=== PATIENT | female | born 1970 | race Caucasian/White ===

== ENCOUNTER 2016-10-14 06:43 | Emergency (ER) | payer BC, OTHER ==
[2016-10-14 06:49] VITALS: BP 124/75; PULSE 110; RESP 18; TEMP 97.7
--- NOTE | 2016-10-14 07:50 | ED ---
General Adult HPI - General Chief complaint: Extremity Problem,Nontraumatic Stated complaint: right shoulder pain Time Seen by Provider: 10/14/16 07:17 Source: patient, RN notes reviewed, old records reviewed Mode of arrival: ambulatory Limitations: no limitations - History of Present Illness Initial comments: This is a 46-year-old male here for evaluation of shoulder pain. Patient has severe right shoulder pain [id number] injury from work. Patient states symptoms or is getting [place] work. She does see orthopedics was unable to get in office today. Patient has no medical complications at home for pain. Patient states at this time. She states maybe few days and get her feeling better and she can - Related Data Home Medications Medication Instructions Recorded Confirmed Ibuprofen [Motrin] 800 mg PO TID PRN 10/14/16 10/14/16 Previous Rx's Medication Instructions Recorded HYDROcodone/APAP 5-325MG [[place] 1 tab PO Q6HR PRN #20 tab 10/14/16 5-325] Allergies Allergy/AdvReac Type Severity Reaction Status Date / Time No Known Allergies Allergy Verified 10/14/16 07:54 Review of Systems ROS Statement: Those systems with pertinent positive or pertinent negative responses have been documented in the HPI. ROS Other: All systems not noted in ROS Statement are negative. Past Medical History Past Medical History: No Reported History History of Any Multi-Drug Resistant Organisms: None Reported Past Surgical History: Tubal Ligation Additional Past Surgical History / Comment(s): cyst removed off wrist Past Psychological History: Depression Smoking Status: Current every day smoker Past Alcohol Use History: None Reported Past Drug Use History: None Reported General Exam Limitations: no limitations General appearance: alert, in no apparent distress Head exam: Present: atraumatic, normocephalic, normal inspection Eye exam: Present: normal appearance, PERRL, EOMI. Absent: scleral icterus, conjunctival injection, periorbital swelling ENT exam: Present: normal exam, mucous membranes moist Neck exam: Present: normal inspection. Absent: tenderness, meningismus, lymphadenopathy Respiratory exam: Present: normal lung sounds bilaterally. Absent: respiratory distress, wheezes, rales, rhonchi, stridor Cardiovascular Exam: Present: regular rate, normal rhythm, normal heart sounds. Absent: systolic murmur, diastolic murmur, rubs, gallop, clicks GI/Abdominal exam: Present: soft, normal bowel sounds. Absent: distended, tenderness, guarding, rebound, rigid Extremities exam: Present: normal inspection, full ROM, normal capillary refill. Absent: tenderness, pedal edema, joint swelling, calf tenderness Back exam: Present: normal inspection Neurological exam: Present: alert, oriented X3, CN II-XII intact Psychiatric exam: Present: normal affect, normal mood Skin exam: Present: warm, dry, intact, normal color. Absent: rash Course Vital Signs 10/14/16 06:46 Temperature 97.7 F Pulse Rate 110 H Respiratory 18 Rate Blood Pressure 124/75 O2 Sat by Pulse 100 Oximetry Medical Decision Making - Medical Decision Making 46 female for female here for evaluation of right shoulder pain. She pain is nonspecific. No injury, patient given pain control and follow-up with orthopedics as directed Disposition Clinical Impression: Right shoulder pain Disposition: HOME SELF-CARE Condition: Good Instructions: Shoulder Pain (ED) Prescriptions: HYDROcodone/APAP 5-325MG [[place] 5-325] 1 tab PO Q6HR PRN #20 tab PRN Reason: Pain Referrals: Nba Gonzales MD [Primary Care Provider] - 1-2 days
== END 2016-10-14 08:01 | disposition home or self-care (01) ==
LOC: EC 06:43
DX: M25.511 Pain in right shoulder (principal); F17.200 Nicotine dependence, unspecified, uncomplicated; Y93.89 Activity, other specified; Y92.69 Other specified industrial and construction area as the place of occurrence of the external cause
CPT/HCPCS: 99283

== ENCOUNTER 2016-11-27 09:26 | Emergency (ER) | payer BC, OTHER ==
[2016-11-27] MEDS ORDERED: SODIUM CHLORIDE 0.9% 500 ML IV STA (09:34)
--- NOTE | 2016-11-27 09:58 | XR ---
EXAMINATION TYPE: XR KUB DATE OF EXAM: 11/27/2016 9:55 AM COMPARISON: NONE HISTORY: Pain TECHNIQUE: Single supine KUB image of the abdomen is obtained FINDINGS: Small bowel demonstrates no evidence for dilatation or air fluid levels. Gas and fecal material is seen in non-distended colon. No convincing evidence for pneumoperitoneum. No unusual calcifications. The lung bases are clear. The osseous structures are intact. IMPRESSION: 1. Overall nonobstructive bowel gas pattern.
--- NOTE | 2016-11-27 10:00 | ED ---
Abdominal Pain HPI - General Chief Complaint: Abdominal Pain Stated Complaint: abd pain Source: patient, RN notes reviewed Mode of arrival: ambulatory Limitations: no limitations - History of Present Illness Initial Comments: 46-year-old female presents emergency Department chief complaint left lower quadrant abdominal pain. Patient states it has been intermittent over the last one to days. Patient states she occasionally gets sharp pain. Patient states she's had no variances in the past and feels somewhat. Patient denies any nausea, vomiting or diarrhea constipation. Denies any dysuria hematuria. Denies any vaginal bleeding or vaginal discharge. Patient had a prior tubal ligation. Patient states that she has no flank pain no back pain. - Related Data Home Medications Medication Instructions Recorded Confirmed Ibuprofen [Motrin] 800 mg PO TID PRN 10/14/16 11/27/16 Previous Rx's Medication Instructions Recorded traMADol HCl [Ultram] 50 mg PO Q6H PRN #20 tab 11/27/16 Allergies Allergy/AdvReac Type Severity Reaction Status Date / Time No Known Allergies Allergy Verified 11/27/16 10:09 Review of Systems ROS Statement: Those systems with pertinent positive or pertinent negative responses have been documented in the HPI. ROS Other: All systems not noted in ROS Statement are negative. Past Medical History Past Medical History: No Reported History History of Any Multi-Drug Resistant Organisms: None Reported Past Surgical History: Tubal Ligation Additional Past Surgical History / Comment(s): cyst removed off wrist Past Psychological History: Depression Smoking Status: Current every day smoker Past Alcohol Use History: None Reported Past Drug Use History: None Reported General Exam Limitations: no limitations General appearance: alert, in no apparent distress Head exam: Present: atraumatic, normocephalic, normal inspection Respiratory exam: Present: normal lung sounds bilaterally. Absent: respiratory distress, wheezes, rales, rhonchi, stridor Cardiovascular Exam: Present: regular rate, normal rhythm, normal heart sounds. Absent: systolic murmur, diastolic murmur, rubs, gallop, clicks GI/Abdominal exam: Present: soft, tenderness (Mild left lower quadrant tenderness), normal bowel sounds. Absent: distended, guarding, rebound, rigid Back exam: Absent: CVA tenderness (R), CVA tenderness (L) Skin exam: Present: warm, dry, intact, normal color. Absent: rash Course Vital Signs 11/27/16 09:27 Temperature 96.7 F L Pulse Rate 98 Respiratory 20 Rate Blood Pressure 118/71 O2 Sat by Pulse 98 Oximetry Medical Decision Making - Medical Decision Making 46-year-old female presented emergency from for abdominal pain, pelvic region. Patient has a right ovarian cyst. Patient's urinalysis was contaminated. Patient of urine culture return parameters were discussed. - Lab Data Result diagrams: 11/27/16 09:48 11/27/16 09:48 Lab Results 11/27/16 11/27/16 11/27/16 Range/Units 09:48 09:48 09:48 WBC 8.4 (3.8-10.6) k/uL RBC 4.11 (3.80-5.40) m/uL Hgb 12.6 (11.4-16.0) gm/dL Hct 38.8 (34.0-46.0) % MCV 94.4 (80.0-100.0) fL MCH 30.8 (25.0-35.0) pg MCHC 32.6 (31.0-37.0) g/dL RDW 12.7 (11.5-15.5) % Plt Count 368 (150-450) k/uL Neutrophils % 51 % Lymphocytes % 41 % Monocytes % 5 % Eosinophils % 1 % Basophils % 0 % Neutrophils # 4.3 (1.3-7.7) k/uL Lymphocytes # 3.5 (1.0-4.8) k/uL Monocytes # 0.4 (0-1.0) k/uL Eosinophils # 0.1 (0-0.7) k/uL Basophils # 0.0 (0-0.2) k/uL Sodium 140 (137-145) mmol/L Potassium 4.1 (3.5-5.1) mmol/L Chloride 107 (98-107) mmol/L Carbon Dioxide 24 (22-30) mmol/L Anion Gap 9 mmol/L BUN 17 (7-17) mg/dL Creatinine 0.81 (0.52-1.04) mg/dL Est GFR (MDRD) Af Amer >60 (>60 ml/min/1.73 sqM) Est GFR (MDRD) Non-Af >60 (>60 ml/min/1.73 sqM) Glucose 125 H (74-99) mg/dL Calcium 9.1 (8.4-10.2) mg/dL Total Bilirubin 0.7 (0.2-1.3) mg/dL AST 17 (14-36) U/L ALT 26 (9-52) U/L Alkaline Phosphatase 75 (38-126) U/L Total Protein 6.7 (6.3-8.2) g/dL Albumin 3.8 (3.5-5.0) g/dL Amylase 41 (30-110) U/L Lipase 44 (23-300) U/L Urine Color Yellow Urine Appearance Cloudy H (Clear) Urine pH 6.0 (5.0-8.0) Ur Specific [place] 1.019 (1.001-1.035) Urine Protein Trace H (Negative) Urine Glucose (UA) Negative (Negative) Urine Ketones Negative (Negative) Urine Blood Moderate H (Negative) Urine Nitrite Negative (Negative) Urine Bilirubin Negative (Negative) Urine Urobilinogen 2.0 (<2.0) mg/dL Ur Leukocyte Esterase Large H (Negative) Urine RBC 15 H (0-5) /hpf Urine WBC 8 H (0-5) /hpf Ur Squamous Epith Cells 26 H (0-4) /hpf Urine Bacteria Occasional H (None) /hpf Urine Mucus Moderate H (None) /hpf Disposition Clinical Impression: Abdominal pain, Ovarian cyst Disposition: HOME SELF-CARE Condition: Stable Instructions: Abdominal Pain (ED) Additional Instructions: Please return to the Emergency Department if symptoms worsen or any other concerns. Prescriptions: traMADol HCl [Ultram] 50 mg PO Q6H PRN #20 tab PRN Reason: Pain Time of Disposition: 10:59
[2016-11-27 10:17] LABS: Basophils % (A) 0 %; CH 30.7; CHCM 32.7; Eosinophils # (A) 0.1 k/uL (0-0.7); Eosinophils % (A) 1 %; HCT 38.8 % (34.0-46.0); HDW 1.98; HGB 12.6 gm/dL (11.4-16.0); Luc # (Auto) 0.18; Luc % (Auto) 2; Lymphocytes # (A) 3.5 k/uL (1.0-4.8); Lymphocytes % (A) 41 %; MCH 30.8 pg (25.0-35.0); MCHC 32.6 g/dL (31.0-37.0); MCV 94.4 fL (80.0-100.0); Mean Platelet Volume 6.6; Monocytes # (A) 0.4 k/uL (0-1.0); Monocytes % (A) 5 %; Neutrophils # (A) 4.3 k/uL (1.3-7.7); Neutrophils % (A) 51 %; RBC 4.11 m/uL (3.80-5.40); RDW 12.7 % (11.5-15.5); WBC 8.4 k/uL (3.8-10.6); WBC (Perox) 7.97
[2016-11-27 10:19] LABS: Appearance,Urine Cloudy (Clear); Bacteria,Urine Occasional /hpf; Bilirubin,Urine Negative (Negative); Glucose,Urine (UA) Negative (Negative); Ketones,Urine Negative (Negative); Leukocyte Esterase,Urine Large (Negative); Mucus,Urine Moderate /hpf; Nitrite,Urine Negative (Negative); Particle Count 11067; Protein,Urine Trace (Negative); RBC,Urine 15 /hpf (0-5); Specific Gravity,Urine 1.019 (1.001-1.035); Squamous Epithelial Cell,Urine 26 /hpf (0-4); UA Billing (MACRO vs. MICRO) MICRO; WBC,Urine 8 /hpf (0-5)
[2016-11-27 10:35] LABS: ALT 26 U/L (9-52); AST 17 U/L (14-36); Alkaline Phosphatase 75 U/L (38-126); Amylase 41 U/L (30-110); Anion Gap 9 mmol/L; Blood Urea Nitrogen 17 mg/dL (7-17); Calcium 9.1 mg/dL (8.4-10.2); Carbon Dioxide 24 mmol/L (22-30); Chloride 107 mmol/L (98-107); Glucose 125 mg/dL (74-99); Non-African American GFR(MDRD) >60 (>60 ml/min/1.73 sqM); Potassium 4.1 mmol/L (3.5-5.1); Sodium 140 mmol/L (137-145); Total Bilirubin 0.7 mg/dL (0.2-1.3); Total Protein 6.7 g/dL (6.3-8.2)
--- NOTE | 2016-11-27 10:47 | US ---
EXAMINATION TYPE: US transvaginal DATE OF EXAM: 11/27/2016 10:34 AM COMPARISON: NONE CLINICAL HISTORY: Pain. Left pelvic pain, tubal ligation 13 years ago TECHNIQUE: Transvaginal (TV) Date of LMP: 10/18 EXAM MEASUREMENTS: Uterus: 9.4 x 5.2 x 5.8 cm Endometrial Stripe: 1.4 cm Right Ovary: 4.3 x 1.6 x 2.9 cm Left Ovary: 3.2 x 1.3 x 1.7 cm 1. Uterus: Anteverted Nabothian cyst 2. Endometrium: thickened 3. Right Ovary: dominant follicle = 1.7cm, complex area = 1.4 x 0.9 x 1.2cm 4. Left Ovary: dominant follicle = 1.5cm Spectral, color and waveform doppler imaging shows good arterial and venous flow within the ovaries ; there is no evidence for ovarian torsion. 5. Bilateral Adnexa: small amount of free fluid bilateral adnexa adjacent to ovaries 6. Posterior cul-de-sac: appears wnl IMPRESSION: 1. Ovarian follicular cysts with a right-sided cyst being somewhat complex which may reflect a hemor rhagic cyst. Consider short-term follow-up in 6 weeks. Small amount of free fluid is noted.
[2016-11-27 11:09] VITALS: BP 134/69; PULSE 78; RESP 18; TEMP 98.2
== END 2016-11-27 11:08 | disposition home or self-care (01) ==
LOC: EC 09:26
DX: N83.201 Unspecified ovarian cyst, right side (principal); R10.32 Left lower quadrant pain; F17.200 Nicotine dependence, unspecified, uncomplicated; Z98.51 Tubal ligation status
CPT/HCPCS: 36415; 74000; 76830; 80053; 81001; 82150; 83690; 85025; 87086; 93975; 96360; 99284

== ENCOUNTER 2016-11-28 18:40 | Emergency (ER) | payer BC, OTHER ==
[2016-11-28 18:53] VITALS: RESP 18
[2016-11-28] MEDS ORDERED: KETOROLAC 60 MG/2 ML VIAL IM STA (19:08)
--- NOTE | 2016-11-28 19:08 | ED ---
General Adult HPI - General Chief complaint: Abdominal Pain Stated complaint: revisit/ovarian cyst pain Time Seen by Provider: 11/28/16 18:54 Source: patient, RN notes reviewed, old records reviewed Mode of arrival: ambulatory Limitations: no limitations - History of Present Illness Initial comments: Patient is a 46-year-old female who presents emergency room today with chief complaint of increased pain from her ovarian cyst. She states she was here yesterday had labs and ultrasound obtained. She states she was told showed bilateral ovarian cyst. States having increased pain today. She describes it as same pain. She states it is not different. She denies any other complaints or symptoms. She states she was discharged with tramadol but is not having any relief. Patient denies any recent fever, chills, shortness of breath, chest pain , back pain, nausea or vomiting, numbness or tingling, dysuria or hematuria, constipation or diarrhea, headaches or visual changes, or any other complaints. - Related Data Home Medications Medication Instructions Recorded Confirmed Ibuprofen [Motrin] 800 mg PO Q6HR PRN 11/28/16 11/28/16 Previous Rx's Medication Instructions Recorded traMADol HCl [Ultram] 50 mg PO Q6H PRN #20 tab 11/27/16 Hydrocodone/Acetaminophen [[place] 1 each PO Q6HR PRN #20 tab 11/28/16 5-325] Allergies Allergy/AdvReac Type Severity Reaction Status Date / Time No Known Allergies Allergy Verified 11/28/16 18:53 Review of Systems ROS Statement: Those systems with pertinent positive or pertinent negative responses have been documented in the HPI. ROS Other: All systems not noted in ROS Statement are negative. Past Medical History Past Medical History: No Reported History Additional Past Medical History / Comment(s): Ovarian Cyst History of Any Multi-Drug Resistant Organisms: None Reported Past Surgical History: Tubal Ligation Additional Past Surgical History / Comment(s): cyst removed off wrist Past Psychological History: Depression Smoking Status: Current every day smoker Past Alcohol Use History: None Reported Past Drug Use History: None Reported General Exam - General Exam Comments Initial Comments: General: The patient is awake and alert, in no distress, and does not appear acutely ill. Eye: Pupils are equal, round and reactive to light, extra-ocular movements are intact. No nystagmus. There is normal conjunctiva bilaterally. No signs of icterus. Ears, nose, mouth and throat: There are moist mucous membranes and no oral lesions. Neck: The neck is supple, there is no tenderness or JVD. Cardiovascular: There is a regular rate and rhythm. No murmur, rub or gallop is appreciated. Respiratory: Lungs are clear to auscultation, respirations are non-labored, breath sounds are equal. No wheezes, stridor, rales, or rhonchi. Gastrointestinal: Normal appearance of the abdomen. Normal bowel sounds. Mild tenderness left lower quadrant. No rebound tenderness. No Guarding. No CVA tenderness. Musculoskeletal: Normal ROM, no tenderness. Strength 5/5. Sensation intact. Pulses equal bilaterally 2+. Neurological: A&O x 3. CN II-XII intact, There are no obvious motor or sensory deficits. Coordination appears grossly intact. Speech is normal. Skin: Skin is warm and dry and no rashes or lesions are noted. Psychiatric: Cooperative, appropriate mood & affect, normal judgment. Limitations: no limitations Course Vital Signs 11/28/16 18:51 Temperature 98.3 F Pulse Rate 92 Respiratory 18 Rate Blood Pressure 141/91 O2 Sat by Pulse 98 Oximetry Medical Decision Making - Medical Decision Making Case discussed in detail with attending physician Dr. Soto. .Patient's ultrasound from 1 day ago showed ovarian follicular cyst with right side being somewhat complex which may reflect a hemorrhagic cyst. Answers short-term follow-up within 6 weeks as read by radiologist Dr. Alvarado. One conversation was had with patient about her pain. Advised patient that if any symptoms were different that we should perform ultrasound to rule out possible ovarian torsion. Patient states pain is same but is not gotten worse. She states feels that the tramadol is not covering the pain for her. She is declined any imaging or lab work here today. Patient advised of the risks. Patient will be given Toradol shot and discharged home with a short prescription of [place]. She is advised follow-up with [facility] over the next 2 days. Advised return if any symptoms increase or worsen or for any other concerns Disposition Clinical Impression: Ovarian cyst Disposition: HOME SELF-CARE Condition: Good Instructions: Ovarian Cyst (ED) Additional Instructions: Please use medication as discussed. Please follow-up with family doctor in the next 2 days of symptoms have not improved. Please return to emergency room if the symptoms increase or worsen or for any other concerns. Prescriptions: Hydrocodone/Acetaminophen [[place] 5-325] 1 each PO Q6HR PRN #20 tab PRN Reason: Pain Time of Disposition: 19:11
[2016-11-28 19:50] VITALS: BP 118/71; PULSE 86; TEMP 98.1
== END 2016-11-28 19:49 | disposition home or self-care (01) ==
LOC: EC 18:40
DX: N83.201 Unspecified ovarian cyst, right side (principal); F17.200 Nicotine dependence, unspecified, uncomplicated; Z98.51 Tubal ligation status
CPT/HCPCS: 99284 ×2; 96372 ×2; J1885

== ENCOUNTER 2016-12-12 13:14 | Emergency (ER) | payer OTHER ==
[2016-12-12] MEDS ORDERED: SODIUM CHLORIDE 0.9% 1,000 ML IV STA (15:22)
[2016-12-12] MEDS ORDERED: SODIUM CHLORIDE 0.9% 500 ML IV STA (15:22)
[2016-12-12] MEDS ORDERED: MORPHINE SULFATE 4 MG/ML SYRINGE IV STA (15:22)
[2016-12-12 15:55] LABS: Amorphous Sediment,Urine Occasional /hpf; Appearance,Urine Clear (Clear); Bacteria,Urine Rare /hpf; Bilirubin,Urine Negative (Negative); Glucose,Urine (UA) Negative (Negative); Ketones,Urine Negative (Negative); Leukocyte Esterase,Urine Trace (Negative); Mucus,Urine Many /hpf; Nitrite,Urine Negative (Negative); Particle Count 6916; Protein,Urine Negative (Negative); RBC,Urine 5 /hpf (0-5); Specific Gravity,Urine 1.007 (1.001-1.035); Squamous Epithelial Cell,Urine 5 /hpf (0-4); UA Billing (MACRO vs. MICRO) MICRO; Urobilinogen,Urine <2.0 mg/dL (<2.0); WBC,Urine 5 /hpf (0-5)
[2016-12-12 15:56] LABS: ALT 19 U/L (9-52); AST 21 U/L (14-36); Alkaline Phosphatase 98 U/L (38-126); Amylase 43 U/L (30-110); Anion Gap 11 mmol/L; Basophils % (A) 0 %; Blood Urea Nitrogen 8 mg/dL (7-17); CH 31.6; CHCM 33.6; Calcium 9.8 mg/dL (8.4-10.2); Carbon Dioxide 25 mmol/L (22-30); Chloride 104 mmol/L (98-107); Eosinophils # (A) 0.1 k/uL (0-0.7); Eosinophils % (A) 1 %; Glucose 101 mg/dL (74-99); HCT 46.5 % (34.0-46.0); HGB 15.3 gm/dL (11.4-16.0); Luc # (Auto) 0.15; Luc % (Auto) 2; Lymphocytes # (A) 2.5 k/uL (1.0-4.8); Lymphocytes % (A) 27 %; MCHC 32.9 g/dL (31.0-37.0); MCV 94.4 fL (80.0-100.0); Mean Platelet Volume 6.6; Monocytes # (A) 0.5 k/uL (0-1.0); Monocytes % (A) 5 %; Neutrophils # (A) 6.2 k/uL (1.3-7.7); Neutrophils % (A) 66 %; Non-African American GFR(MDRD) >60 (>60 ml/min/1.73 sqM); Potassium 4.3 mmol/L (3.5-5.1); RBC 4.93 m/uL (3.80-5.40); RDW 12.5 % (11.5-15.5); Sodium 140 mmol/L (137-145); Total Bilirubin 0.7 mg/dL (0.2-1.3); Total Protein 7.9 g/dL (6.3-8.2); WBC 9.4 k/uL (3.8-10.6); WBC (Perox) 9.28
--- NOTE | 2016-12-12 16:30 | US ---
EXAMINATION TYPE: US pelvic comp with doppler DATE OF EXAM: 12/12/2016 4:06 PM COMPARISON: US from 11/29/16 CLINICAL HISTORY: Pain. Pelvic pain, tubal ligation 13 years ago TECHNIQUE: Transvaginal (TV) Date of LMP: 12/05/16 EXAM MEASUREMENTS: Uterus: 9.2 x 4.2 x 5.2 cm Endometrial Stripe: 0.5 cm Right Ovary: 2.8 x 1.5 x 1.5 cm Left Ovary: 2.1 x 1.2 x 1.4 cm 1. Uterus: Anteverted no masses identified. 2. Endometrium wnl 3. Right Ovary: previous complex area not seen on today's scan, this could be due to overlying bowel gas obscuring it or resolution, ovary is partly obscured by overlying bowel 4. Left Ovary: ovary is partly obscured by overlying bowel Spectral, color and waveform doppler imaging shows good arterial and venous flow within the ovaries ; there is no evidence for ovarian torsion. 5. Bilateral Adnexa: wnl 6. Posterior cul-de-sac: appears wnl IMPRESSION: 1. Somewhat limited study given overlying bowel content. Previously noted complex area right ovary no t clearly defined on today's study. No definite evidence for torsion at this time.
--- NOTE | 2016-12-12 16:38 | XR ---
EXAMINATION TYPE: XR KUB DATE OF EXAM: 12/12/2016 4:32 PM COMPARISON: 11/27/2016 HISTORY: Abdominal pain TECHNIQUE: 2 views FINDINGS: Bowel gas pattern is normal. There is no sign of intestinal obstruction or pneumoperitoneum . Fecal pattern is normal. Lung bases are clear. There are no pathologic calcifications over the kidn eys. There is no evidence of a mass. IMPRESSION: Nonacute abdomen. No change.
[2016-12-12] MEDS ORDERED: RX INFO: IV CONTRAST WAS GIVEN 1 EACH MISC MISCELLANE PRN (18:06)
[2016-12-12] MEDS ORDERED: MORPHINE SULFATE 4 MG/ML SYRINGE IVP STA (18:07)
[2016-12-12] MEDS ORDERED: KETOROLAC 30 MG/ML 1 ML VIAL IVP STA (18:07)
--- NOTE | 2016-12-12 18:14 | ED ---
Abdominal Pain HPI - General Chief Complaint: Abdominal Pain Stated Complaint: Abd pain Time Seen by Provider: 12/12/16 15:01 Source: patient Mode of arrival: ambulatory Limitations: no limitations - History of Present Illness Initial Comments: She woke up this morning with this pain pain is both side of the pelvis she has a history of ovarian cyst in the past and she had ultrasound done for the ovarian cyst no other surgeries she status post tubal ligation she denies any fever no chills no nausea no vomiting last menstrual period was some 8 days ago and now she has no prior history of any abdominal surgeries. Review of system is unremarkable otherwise him and denies any vaginal discharge or any symptoms consistent with a cystitis - Related Data Home Medications Medication Instructions Recorded Confirmed Hydrocodone/Acetaminophen [[place] 1 tab PO Q6HR PRN 12/12/16 12/12/16 5-325] Ftt-[id number] Acid 1 cap PO DAILY 12/12/16 12/12/16 [-U Capsule (formulary)] Previous Rx's Medication Instructions Recorded HYDROcodone/APAP 7.5-325MG [[place] 1 tab PO Q6HR PRN #25 tab 12/12/16 7.5-325] Allergies Allergy/AdvReac Type Severity Reaction Status Date / Time No Known Allergies Allergy Verified 12/12/16 13:24 Review of Systems ROS Statement: Those systems with pertinent positive or pertinent negative responses have been documented in the HPI. ROS Other: All systems not noted in ROS Statement are negative. Past Medical History Past Medical History: No Reported History Additional Past Medical History / Comment(s): Ovarian Cyst History of Any Multi-Drug Resistant Organisms: None Reported Past Surgical History: Tubal Ligation Additional Past Surgical History / Comment(s): cyst removed off wrist Past Psychological History: Depression Smoking Status: Current every day smoker Past Alcohol Use History: None Reported Past Drug Use History: None Reported General Exam - General Exam Comments Initial Comments: General: The patient is awake and alert, in no distress, and does not appear acutely ill. Skin: Skin is warm and dry and no rashes or lesions are noted. Eye: Pupils are equal, round and reactive to light, extra-ocular movements are intact; there is normal conjunctiva bilaterally. Ears, nose, mouth and throat: There are moist mucous membranes and no oral lesions. Neck: The neck is supple, there is no tenderness or JVD. Cardiovascular: There is a regular rate and rhythm. No murmur, rub or gallop is appreciated. Respiratory: To auscultation bilateral, no wheezing no rhonchi no distress respiratory de souza noticed Gastrointestinal: She is tender in the right lower as well as left lower quadrant rather a cyst pelvic that the abdomen bowel sounds are positive no guarding no rebounds no tenderness over the upper abdomen Back: There is no tenderness to palpation in the midline. There is no obvious deformity. Musculoskeletal: Normal ROM, no tenderness, There is no pedal edema. There is no calf tenderness or swelling. No cords were appreciated. Neurological: CN II-XII intact, Cranial nerves III through XII are intact. There are no obvious motor or sensory deficits. Coordination appears grossly intact. Speech is normal. Psychiatric: Cooperative, appropriate mood & affect, normal judgment. Limitations: no limitations Course Vital Signs 12/12/16 12/12/16 12/12/16 13:22 17:00 18:18 Temperature 98.9 F 98.9 F 97.9 F Pulse Rate 102 H 102 H 78 Respiratory 20 20 20 Rate Blood Pressure 145/86 145/86 121/72 O2 Sat by Pulse 97 97 100 Oximetry 12/12/16 12/12/16 19:41 20:43 Temperature 98.2 F Pulse Rate 78 71 Respiratory 18 18 Rate Blood Pressure 121/72 116/76 O2 Sat by Pulse 100 98 Oximetry - Reevaluation(s) Reevaluation #1: 12/12/16 18:13 She was reassessed 3 times last time she was reassessed at 1800 with the intention to discharge her to follow-up with the family doctor but she said pain is coming back and is quite severe considering that patient was educated about the other option she wanted to stick around for the CT of the abdomen and pelvis WITH THE PELVIS REPORT WAS DISCUSSED WITH THE PATIENT ALONG WITH THE LABS THAT INCLUDED CBC WHICH IS ABSOLUTELY NORMAL WELL COMPRESSIVE METABOLIC PANEL AND URINALYSIS Reevaluation #2: 12/12/16 20:46 She was reassessed at 2030 today, she still has pain and CT abdomen is normal ultrasound of the pelvis was normal as well earlier did the CBC and compressive metabolic panel those are within normal range she has appointment to see Dr. Vieira scaffold setter and she'll be given some [place]'s along with Advil for the pain management, she agrees with the Medical Decision Making - Lab Data Result diagrams: 12/12/16 15:06 12/12/16 15:06 Lab Results 12/12/16 12/12/16 12/12/16 Range/Units 15: 15: 15:06 WBC 9.4 (3.8-10.6) k/uL RBC 4.93 (3.80-5.40) m/uL Hgb 15.3 (11.4-16.0) gm/dL Hct 46.5 H (34.0-46.0) % MCV 94.4 (80.0-100.0) fL MCH 31.0 (25.0-35.0) pg MCHC 32.9 (31.0-37.0) g/dL RDW 12.5 (11.5-15.5) % Plt Count 417 (150-450) k/uL Neutrophils % 66 % Lymphocytes % 27 % Monocytes % 5 % Eosinophils % 1 % Basophils % 0 % Neutrophils # 6.2 (1.3-7.7) k/uL Lymphocytes # 2.5 (1.0-4.8) k/uL Monocytes # 0.5 (0-1.0) k/uL Eosinophils # 0.1 (0-0.7) k/uL Basophils # 0.0 (0-0.2) k/uL Sodium 140 (137-145) mmol/L Potassium 4.3 (3.5-5.1) mmol/L Chloride 104 (98-107) mmol/L Carbon Dioxide 25 (22-30) mmol/L Anion Gap 11 mmol/L BUN 8 (7-17) mg/dL Creatinine 0.73 (0.52-1.04) mg/dL Est GFR (MDRD) Af Amer >60 (>60 ml/min/1.73 sqM) Est GFR (MDRD) Non-Af >60 (>60 ml/min/1.73 sqM) Glucose 101 H (74-99) mg/dL Calcium 9.8 (8.4-10.2) mg/dL Total Bilirubin 0.7 (0.2-1.3) mg/dL AST 21 (14-36) U/L ALT 19 (9-52) U/L Alkaline Phosphatase 98 (38-126) U/L Total Protein 7.9 (6.3-8.2) g/dL Albumin 4.6 (3.5-5.0) g/dL Amylase 43 (30-110) U/L Lipase 47 (23-300) U/L Urine Color Urine Appearance (Clear) Urine pH (5.0-8.0) Ur Specific [place] (1.001-1.035) Urine Protein (Negative) Urine Glucose (UA) (Negative) Urine Ketones (Negative) Urine Blood (Negative) Urine Nitrite (Negative) Urine Bilirubin (Negative) Urine Urobilinogen (<2.0) mg/dL Ur Leukocyte Esterase (Negative) Urine RBC (0-5) /hpf Urine WBC (0-5) /hpf Ur Squamous Epith Cells (0-4) /hpf Amorphous Sediment (None) /hpf Urine Bacteria (None) /hpf Urine Mucus (None) /hpf Urine HCG, Qual Not Detected (Not Detectd) 12/12/16 Range/Units 15:06 WBC (3.8-10.6) k/uL RBC (3.80-5.40) m/uL Hgb (11.4-16.0) gm/dL Hct (34.0-46.0) % MCV (80.0-100.0) fL MCH (25.0-35.0) pg MCHC (31.0-37.0) g/dL RDW (11.5-15.5) % Plt Count (150-450) k/uL Neutrophils % % Lymphocytes % % Monocytes % % Eosinophils % % Basophils % % Neutrophils # (1.3-7.7) k/uL Lymphocytes # (1.0-4.8) k/uL Monocytes # (0-1.0) k/uL Eosinophils # (0-0.7) k/uL Basophils # (0-0.2) k/uL Sodium (137-145) mmol/L Potassium (3.5-5.1) mmol/L Chloride (98-107) mmol/L Carbon Dioxide (22-30) mmol/L Anion Gap mmol/L BUN (7-17) mg/dL Creatinine (0.52-1.04) mg/dL Est GFR (MDRD) Af Amer (>60 ml/min/1.73 sqM) Est GFR (MDRD) Non-Af (>60 ml/min/1.73 sqM) Glucose (74-99) mg/dL Calcium (8.4-10.2) mg/dL Total Bilirubin (0.2-1.3) mg/dL AST (14-36) U/L ALT (9-52) U/L Alkaline Phosphatase (38-126) U/L Total Protein (6.3-8.2) g/dL Albumin (3.5-5.0) g/dL Amylase (30-110) U/L Lipase (23-300) U/L Urine Color Yellow Urine Appearance Clear (Clear) Urine pH 7.0 (5.0-8.0) Ur Specific [place] 1.007 (1.001-1.035) Urine Protein Negative (Negative) Urine Glucose (UA) Negative (Negative) Urine Ketones Negative (Negative) Urine Blood Small H (Negative) Urine Nitrite Negative (Negative) Urine Bilirubin Negative (Negative) Urine Urobilinogen <2.0 (<2.0) mg/dL Ur Leukocyte Esterase Trace H (Negative) Urine RBC 5 (0-5) /hpf Urine WBC 5 (0-5) /hpf Ur Squamous Epith Cells 5 H (0-4) /hpf Amorphous Sediment Occasional H (None) /hpf Urine Bacteria Rare H (None) /hpf Urine Mucus Many H (None) /hpf Urine HCG, Qual (Not Detectd) Disposition Clinical Impression: Abdominal pain Disposition: HOME SELF-CARE Instructions: Abdominal Pain (ED) Additional Instructions: She is advised to return to the ER if she develops high fever chills frequency urgency dysuria or pain gets worse Prescriptions: HYDROcodone/APAP 7.5-325MG [[place] 7.5-325] 1 tab PO Q6HR PRN #25 tab PRN Reason: Pain
--- NOTE | 2016-12-12 19:07 | CT ---
EXAMINATION TYPE: CT abdomen pelvis w con DATE OF EXAM: 12/12/2016 6:46 PM COMPARISON: NONE HISTORY: LLQ pain x1 day. CT DLP: 1083 mGycm Automated exposure control for dose reduction was used. TECHNIQUE: Helical acquisition of images was performed from the lung bases through the pelvis. CONTRAST: Performed without Oral Contrast and with IV Contrast, patient injected with 100 mL of Omnipaque 300. FINDINGS: Lung bases are clear. There is no pleural effusion. Liver spleen pancreas gallbladder appear normal. Bile ducts are not dilated. There is no adrenal mass. Kidneys show satisfactory contrast opacificatio n. There is no hydronephrosis. There is no retroperitoneal adenopathy. There is no ascites. I see no intestinal wall thickening. There are no dilated loops. Bladder distends smoothly. There is no sign o f a pelvic mass. I see no bony destructive process. Appendix is not definitely seen. There is no sign of appendicitis. There is no sign of a hernia. IMPRESSION: NEGATIVE CT SCAN OF THE ABDOMEN AND PELVIS.
[2016-12-12 19:41] VITALS: RESP 18
[2016-12-12 20:44] VITALS: BP 116/76; PULSE 71; TEMP 98.2
== END 2016-12-12 21:00 | disposition home or self-care (01) ==
LOC: EC 13:14
DX: R10.2 Pelvic and perineal pain (principal); F17.200 Nicotine dependence, unspecified, uncomplicated; Z79.899 Other long term (current) drug therapy; Z98.51 Tubal ligation status
CPT/HCPCS: 36415; 80053; 82150; 83690; 85025; 81001; 81025; 74000; 93976; 76856; 74177; 99284; 96374; 96375; 96376; 96361 ×5; J2270; J1885; Q9967

== ENCOUNTER 2017-01-09 11:36 | Emergency (ER) | payer BC, OTHER ==
[2017-01-09 11:56] VITALS: TEMP 99
[2017-01-09] MEDS ORDERED: KETOROLAC 30 MG/ML 1 ML VIAL IVP STA (12:23)
[2017-01-09] MEDS ORDERED: METHOCARBAMOL 500 MG TAB PO STA (12:23)
[2017-01-09 13:00] LABS: CH 31.2; CHCM 32.7; HDW 1.94; HGB 13.1 gm/dL (11.4-16.0); MCH 30.7 pg (25.0-35.0); MCHC 32.1 g/dL (31.0-37.0); MCV 95.7 fL (80.0-100.0); Mean Platelet Volume 7.9; RBC 4.28 m/uL (3.80-5.40); RDW 12.6 % (11.5-15.5); WBC 10.6 k/uL (3.8-10.6)
--- NOTE | 2017-01-09 13:13 | XR ---
EXAMINATION TYPE: XR chest 2V DATE OF EXAM: 01/09/2017 COMPARISON: NONE HISTORY: Chest pain and shortness of breath per order. TECHNIQUE: Frontal and lateral views of the chest are obtained. FINDINGS: There is no focal air space opacity, pleural effusion, or pneumothorax seen. The cardiac silhouette size is within normal limits. The osseous structures are intact. IMPRESSION: No acute cardiopulmonary process.
--- NOTE | 2017-01-09 13:13 | XR ---
Thoracic spine HISTORY: Back pain 3 views of the thoracic spine No comparisons Thoracic vertebral bodies show preserved height, alignment, and bone mineralization. The level spondy losis. Loss of disc height at the intervertebral levels IMPRESSION: Degenerative disc disease.
--- NOTE | 2017-01-09 13:48 | ED ---
General Adult HPI - General Chief complaint: Back Pain/Injury Stated complaint: Back Pain Time Seen by Provider: 01/09/17 12:00 Source: patient Mode of arrival: ambulatory Limitations: no limitations - History of Present Illness Initial comments: The patient is a 46-year-old female who presents to the ED with a chief complaint of left posterior chest wall pain. Patient states the pain has been present over the course the past 3 days. She states that it is worse when she takes deep breath. Patient denies any shortness of breath that accompanies this pain. She denies any cough, fever or chills. Patient states that she does have a history of chronic thoracic back pain. She states that she does not have any exacerbation of the pain when she moves her left arm but does state it worsens with movement of her upper torso. Patient denies any recent injury. The patient also has a history of cigarette use and abuse. - Related Data Home Medications Medication Instructions Recorded Confirmed Lwc-[id number]-Floyx Acid 1 cap PO DAILY 12/12/16 01/09/17 [-U Capsule (formulary)] Ibuprofen [Motrin] 800 mg PO Q8H PRN 01/09/17 01/09/17 Previous Rx's Medication Instructions Recorded Ibuprofen [Motrin] 600 mg PO Q6HR PRN #30 tab 01/09/17 Methocarbamol [Robaxin] 1,000 mg PO TID PRN #30 tab 01/09/17 Allergies Allergy/AdvReac Type Severity Reaction Status Date / Time No Known Allergies Allergy Verified 01/09/17 13:19 Review of Systems ROS Statement: Those systems with pertinent positive or pertinent negative responses have been documented in the HPI. ROS Other: All systems not noted in ROS Statement are negative. Constitutional: Denies: fever, chills, weakness Eyes: Denies: vision change ENT: Denies: ear pain, throat pain, dental pain, hearing loss, epistaxis Respiratory: Denies: cough, dyspnea, wheezes, hemoptysis, stridor Cardiovascular: Reports: chest pain (left posterior chest wall). Denies: palpitations, dyspnea on exertion, orthopnea, edema Endocrine: Denies: fatigue Gastrointestinal: Denies: abdominal pain, nausea, vomiting, diarrhea, constipation, hematemesis, melena Genitourinary: Denies: urgency, dysuria, frequency, hematuria Musculoskeletal: Reports: back pain (left upper back pain) Skin: Denies: rash Neurological: Denies: headache, weakness, numbness, paresthesias Psychiatric: Denies: anxiety, depression Past Medical History Past Medical History: No Reported History Additional Past Medical History / Comment(s): Ovarian Cyst History of Any Multi-Drug Resistant Organisms: None Reported Past Surgical History: Tubal Ligation Additional Past Surgical History / Comment(s): cyst removed off wrist Past Psychological History: Depression Smoking Status: Current every day smoker Past Alcohol Use History: None Reported Past Drug Use History: None Reported General Exam Limitations: no limitations General appearance: alert, in no apparent distress Head exam: Present: atraumatic, normocephalic Eye exam: Present: normal appearance, PERRL, EOMI Pupils: Present: normal accommodation ENT exam: Present: normal exam, normal oropharynx Neck exam: Present: normal inspection, full ROM Respiratory exam: Present: normal lung sounds bilaterally. Absent: respiratory distress, wheezes, rales, rhonchi, stridor, chest wall tenderness, accessory muscle use Cardiovascular Exam: Present: regular rate, normal rhythm GI/Abdominal exam: Present: soft. Absent: distended, tenderness, guarding, rebound Extremities exam: Present: normal inspection, full ROM. Absent: tenderness Back exam: Present: normal inspection, full ROM, muscle spasm (in the region of the left scapula). Absent: tenderness Neurological exam: Present: alert, oriented X3 Psychiatric exam: Present: normal affect, normal mood Skin exam: Present: warm, dry, intact Course Vital Signs 01/09/17 01/09/17 11:54 14:46 Temperature 99.0 F Pulse Rate 92 64 Respiratory 20 18 Rate Blood Pressure 127/88 138/76 O2 Sat by Pulse 99 100 Oximetry EKG Findings - EKG Comments: EKG Findings:: EKG demonstrates NSR with a rate of 69. There are no concerning ST-T changes. The UT and QRS intervals are within normal limits. Medical Decision Making - Medical Decision Making Patient is a 46-year-old female who presents to ED with a chief complaint of left posterior wall pain. She states that it is pleuritic in nature. Patient states that she has not had any recent trauma. Denies any chest pain or shortness of breath. She denies any fevers or chills. Will check a d-dimer to rule out possibility of PE given pleuritic nature patient's pain. Will also check a chest x-ray. Check x-ray of the thoracic spine. Provide patient with Toradol and Robaxin for pain relief. 2:38 PM Updated the patient of overall findings including no evidence of abnormality on chest x-ray. D-dimer was noted to be within normal limits. Patient notes improvement of pain with Robaxin and Toradol. 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 Counseled patient that I will discharge her home with Motrin and Robaxin for pain relief. Encouraged the patient to follow up with a PCP so that she might be able to receive a referral to physical therapy services. Recommended other activities for the patient that might help to stretch out her upper back. I have answered all of the patient's questions to her satisfaction. I have encouraged her to return to the ED should her symptoms worsen while home. - Lab Data Result diagrams: 01/09/17 12:50 01/09/17 13:49 Lab Results 01/09/17 01/09/17 01/09/17 Range/Units 12:50 13:49 13:49 WBC 10.6 (3.8-10.6) k/uL RBC 4.28 (3.80-5.40) m/uL Hgb 13.1 (11.4-16.0) gm/dL Hct 41.0 (34.0-46.0) % MCV 95.7 (80.0-100.0) fL MCH 30.7 (25.0-35.0) pg MCHC 32.1 (31.0-37.0) g/dL RDW 12.6 (11.5-15.5) % Plt Count 376 (150-450) k/uL APTT 24.7 (22.0-30.0) sec D-Dimer 0.29 (<0.60) mg/L FEU Sodium 143 (137-145) mmol/L Potassium 4.0 (3.5-5.1) mmol/L Chloride 104 (98-107) mmol/L Carbon Dioxide 29 (22-30) mmol/L Anion Gap 10 mmol/L BUN 13 (7-17) mg/dL Creatinine 0.70 (0.52-1.04) mg/dL Est GFR (MDRD) Af Amer >60 (>60 ml/min/1.73 sqM) Est GFR (MDRD) Non-Af >60 (>60 ml/min/1.73 sqM) Glucose 89 (74-99) mg/dL Calcium 9.6 (8.4-10.2) mg/dL Magnesium 2.1 (1.6-2.3) mg/dL Disposition Clinical Impression: Thoracic back pain, Musculoskeletal pain of left upper extremity Disposition: HOME SELF-CARE Condition: Good Instructions: Ibuprofen (By mouth), Methocarbamol (By mouth), Back Pain (ED) Additional Instructions: Please follow up with your primary care physician regarding the pain that brought you into the ED today. They can help to further monitor your pain and ensure that it is improving. Please return to the ED should your symptoms worsen, particularly if they're associated with shortness of breath. Prescriptions: Ibuprofen [Motrin] 600 mg PO Q6HR PRN #30 tab PRN Reason: Pain Methocarbamol [Robaxin] 1,000 mg PO TID PRN #30 tab PRN Reason: Pain Referrals: Whitley Hopkins MD [STAFF PHYSICIAN] - 01/23/17 (Dr. Hopkins is a primary care provider. Please call her office to schedule follow-up appointment in the next 2 weeks should you need a PCP.) Time of Disposition: 14:38
[2017-01-09 14:14] LABS: Anion Gap 10 mmol/L; Blood Urea Nitrogen 13 mg/dL (7-17); Calcium 9.6 mg/dL (8.4-10.2); Carbon Dioxide 29 mmol/L (22-30); Chloride 104 mmol/L (98-107); Glucose 89 mg/dL (74-99); Magnesium 2.1 mg/dL (1.6-2.3); Non-African American GFR(MDRD) >60 (>60 ml/min/1.73 sqM); Sodium 143 mmol/L (137-145)
[2017-01-09 14:18] LABS: Partial Thromboplastin Time 24.7 sec (22.0-30.0)
[2017-01-09 14:47] VITALS: BP 138/76; PULSE 64; RESP 18
== END 2017-01-09 14:52 | disposition home or self-care (01) ==
LOC: EC 11:36
DX: M54.6 Pain in thoracic spine (principal); M62.838 Other muscle spasm; R07.89 Other chest pain; F17.200 Nicotine dependence, unspecified, uncomplicated; Z79.899 Other long term (current) drug therapy
CPT/HCPCS: 36415; 93005; 85379; 80048; 83735; 85027; 85730; 71020; 72072; 99284; 96374; J1885

== ENCOUNTER 2017-01-20 19:11 | Emergency (ER) | payer OTHER ==
[2017-01-20] MEDS ORDERED: SODIUM CHLORIDE 0.9% 1,000 ML IV ONE (21:32)
[2017-01-20] MEDS ORDERED: KETOROLAC 30 MG/ML 1 ML VIAL IVP STA (21:32)
[2017-01-20] MEDS ORDERED: diphenhydrAMINE 50 MG/ML 1 ML VIAL IVP STA (21:32)
[2017-01-20] MEDS ORDERED: METOCLOPRAMIDE 5 MG/ML 2 ML VIAL IVP STA (21:32)
--- NOTE | 2017-01-20 21:37 | ED ---
Headache HPI - General Chief Complaint: Headache Stated Complaint: Headache/Nausea Time Seen by Provider: 01/20/17 21:23 Mode of arrival: ambulatory Limitations: no limitations - History of Present Illness Initial Comments: This patient is a 46-year-old woman who presents to be evaluated for headache. She states that it started yesterday and when it continued into today she decided to be seen here. She indicates the pain is across the bifrontal area, is throbbing, is moderately severe. She tried some ibuprofen which she states didn't really help much. She states that the pain gets worse with loud noises. She has not noticed any relieving factors other than lying down in a quiet place. Patient states this is similar to previous headaches but persisting. She states she does have history of migraines but not taking medication. She denies any associated symptoms. She has not had fevers or chills, neck pain or stiffness, any neurologic symptoms, upper respiratory or sinus type symptoms ( See ROS). MD Complaint: headache Onset/Timin -: days(s) Onset Description: gradual Location: right, left, frontal Quality: throbbing Consistency: constant Improves With: nothing Worsens With: noise Context: occurred at rest Associated Symptoms: sensitivity to sound Treatments Prior to Arrival: Ibuprofen - Related Data Home Medications Medication Instructions Recorded Confirmed Ibuprofen [Motrin] 800 mg PO TID PRN 01/09/17 01/20/17 Cyclobenzaprine [Flexeril] 10 mg PO TID PRN 01/20/17 01/20/17 Allergies Allergy/AdvReac Type Severity Reaction Status Date / Time No Known Allergies Allergy Verified 01/20/17 21:09 Review of Systems ROS Statement: Those systems with pertinent positive or pertinent negative responses have been documented in the HPI. ROS Other: All systems not noted in ROS Statement are negative. Constitutional: Denies: fever, chills, weakness Eyes: Denies: eye pain, vision change ENT: Denies: ear pain, dental pain, hearing loss, congestion Respiratory: Denies: cough, dyspnea Gastrointestinal: Reports: nausea. Denies: vomiting Musculoskeletal: Denies: back pain Skin: Denies: rash Neurological: Reports: headache. Denies: weakness, numbness, paresthesias, confusion, abnormal gait Past Medical History Past Medical History: No Reported History Additional Past Medical History / Comment(s): Ovarian Cyst History of Any Multi-Drug Resistant Organisms: None Reported Past Surgical History: Tubal Ligation Additional Past Surgical History / Comment(s): cyst removed off wrist Past Psychological History: Depression Smoking Status: Current every day smoker Past Alcohol Use History: None Reported Past Drug Use History: None Reported General Exam Limitations: no limitations General appearance: alert, in no apparent distress Head exam: Present: atraumatic, normocephalic, normal inspection Eye exam: Present: normal appearance, PERRL, EOMI. Absent: scleral icterus, conjunctival injection, nystagmus ENT exam: Present: normal oropharynx, mucous membranes moist Neck exam: Present: normal inspection, full ROM. Absent: tenderness, meningismus, lymphadenopathy Respiratory exam: Present: normal lung sounds bilaterally. Absent: respiratory distress, wheezes, rales, rhonchi, stridor Cardiovascular Exam: Present: regular rate, normal rhythm, normal heart sounds. Absent: systolic murmur, diastolic murmur, rubs, gallop Neurological exam: Present: alert, oriented X3, CN II-XII intact, normal gait. Absent: motor sensory deficit Skin exam: Present: warm, dry, intact, normal color. Absent: rash Course Vital Signs 01/20/17 01/20/17 19:45 21:05 Temperature 97.8 F Pulse Rate 79 70 Respiratory 16 16 Rate Blood Pressure 143/81 132/70 O2 Sat by Pulse 98 97 Oximetry Medical Decision Making - Medical Decision Making Patient is feeling much better following medications and fluids. 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 I discussed appropriate follow-up and return parameters, all questions answered. Disposition Clinical Impression: Headache Disposition: HOME SELF-CARE Condition: Good Instructions: Acute Headache (ED) Referrals: None,Stated [Primary Care Provider] - 1-2 days
[2017-01-20 23:20] VITALS: BP 112/70; PULSE 65; RESP 15; TEMP 97.9
== END 2017-01-20 23:20 | disposition home or self-care (01) ==
LOC: EC 19:11
DX: R51 Headache (principal); F17.200 Nicotine dependence, unspecified, uncomplicated
CPT/HCPCS: 99284; 96374; 96375 ×2; 96361 ×2; J1200; J2765; J1885

== ENCOUNTER 2017-01-28 01:38 | Emergency (ER) | payer OTHER ==
[2017-01-28 01:43] VITALS: BP 143/84; PULSE 90; RESP 18; TEMP 98.5
[2017-01-28] MEDS ORDERED: HYDROcodone/APAP 5-325MG 1 EACH TAB PO STA (01:56)
--- NOTE | 2017-01-28 01:57 | ED ---
Upper Extremity HPI - General Chief Complaint: Extremity Injury, Upper Stated Complaint: Shoulder Injury Time Seen by Provider: 01/28/17 01:51 Source: patient, RN notes reviewed Mode of arrival: ambulatory Limitations: no limitations - History of Present Illness Initial Comments: 46-year-old female presents emergency Department template right shoulder pain. Patient states she's had chronic issues. 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 Patient states that she went to brush her felt a loud snap and crack in her shoulder. She states she's had severe pain ever since. Patient does suffer range of motion denies any paresthesias. Patient took some ibuprofen no relief. - Related Data Home Medications Medication Instructions Recorded Confirmed Ibuprofen [Motrin] 800 mg PO TID PRN 01/09/17 01/28/17 Cyclobenzaprine [Flexeril] 10 mg PO TID PRN 01/20/17 01/28/17 Previous Rx's Medication Instructions Recorded Hydrocodone/Acetaminophen [[place] 1 tab PO Q6HR PRN #15 tab 01/28/17 5-325] Allergies Allergy/AdvReac Type Severity Reaction Status Date / Time No Known Allergies Allergy Verified 01/28/17 01:41 Review of Systems ROS Statement: Those systems with pertinent positive or pertinent negative responses have been documented in the HPI. ROS Other: All systems not noted in ROS Statement are negative. Past Medical History Past Medical History: No Reported History Additional Past Medical History / Comment(s): Ovarian Cyst History of Any Multi-Drug Resistant Organisms: None Reported Past Surgical History: Tubal Ligation Additional Past Surgical History / Comment(s): cyst removed off wrist Past Psychological History: Depression Smoking Status: Current every day smoker Past Alcohol Use History: None Reported Past Drug Use History: None Reported General Exam Limitations: no limitations General appearance: alert, in no apparent distress Neck exam: Present: normal inspection, full ROM. Absent: tenderness, meningismus, lymphadenopathy Respiratory exam: Present: normal lung sounds bilaterally. Absent: respiratory distress, wheezes, rales, rhonchi, stridor Cardiovascular Exam: Present: regular rate, normal rhythm, normal heart sounds. Absent: systolic murmur, diastolic murmur, rubs, gallop, clicks Extremities exam: Present: other (right shoulder there is mild tenderness in the posterior lateral portion patient has full range of motion she does have some pain with abduction shoulder flexion.) Course Vital Signs 01/28/17 01:41 Temperature 98.5 F Pulse Rate 90 Respiratory 18 Rate Blood Pressure 143/84 O2 Sat by Pulse 98 Oximetry Medical Decision Making - Medical Decision Making 46-year-old female presented for chronic shoulder pain. Patient we given medications at this time patient is advised follow-up with orthopedics again return parameters were discussed. Disposition Clinical Impression: Chronic shoulder pain Disposition: HOME SELF-CARE Condition: Stable Instructions: Shoulder Pain (ED) Additional Instructions: Please return to the Emergency Department if symptoms worsen or any other concerns. Prescriptions: Hydrocodone/Acetaminophen [[place] 5-325] 1 tab PO Q6HR PRN #15 tab PRN Reason: Pain Referrals: None,Stated [Primary Care Provider] - 1-2 days Time of Disposition: 01:57
== END 2017-01-28 02:09 | disposition home or self-care (01) ==
LOC: EC 01:38
DX: G89.29 Other chronic pain (principal); M25.511 Pain in right shoulder; F17.200 Nicotine dependence, unspecified, uncomplicated
CPT/HCPCS: 99283

== ENCOUNTER 2017-02-11 14:49 | Emergency (ER) | payer OTHER ==
[2017-02-11 15:06] VITALS: BP 122/84; PULSE 101; RESP 20; TEMP 98.4
--- NOTE | 2017-02-11 15:23 | ED ---
ENT HPI - General Chief complaint: Dental/Oral Stated complaint: Dental Pain Time Seen by Provider: 02/11/17 15:01 Source: patient, RN notes reviewed Mode of arrival: ambulatory Limitations: no limitations - History of Present Illness Initial comments: 46 yo female presents to the ER with cc of left-sided dental pain. Patient has had this pain for the past day. She has scheduled a dental appt for Friday. Patient states she's been having pain. Patient denies any fever or chills. Patient denies any difficulty opening his house or any pain radiating into the neck. Patient states she was concerned due to her symptoms so she thought that she should be evaluated. Patient denies any recent fever, chills, shortness of breath, chest pain, back pain, abdominal pain, nausea vomiting, numbness or tingling, dysuria or hematuria, constipation or diarrhea, headaches or visual changes, or any other current symptoms. - Related Data Home Medications Medication Instructions Recorded Confirmed Ibuprofen [Motrin] 800 mg PO TID PRN 01/09/17 01/28/17 Cyclobenzaprine [Flexeril] 10 mg PO TID PRN 01/20/17 01/28/17 Previous Rx's Medication Instructions Recorded Hydrocodone/Acetaminophen [[place] 1 tab PO Q6HR PRN #15 tab 01/28/17 5-325] Penicillin V Potassium [Pen Vee K] 500 mg PO TID #40 tab 02/11/17 traMADol HCl [Ultram] 50 mg PO Q4H PRN #20 tab 02/11/17 Allergies Allergy/AdvReac Type Severity Reaction Status Date / Time No Known Allergies Allergy Verified 01/28/17 01:41 Review of Systems ROS Statement: Those systems with pertinent positive or pertinent negative responses have been documented in the HPI. ROS Other: All systems not noted in ROS Statement are negative. Past Medical History Past Medical History: No Reported History Additional Past Medical History / Comment(s): Ovarian Cyst History of Any Multi-Drug Resistant Organisms: None Reported Past Surgical History: Tubal Ligation Additional Past Surgical History / Comment(s): cyst removed off bliateral wrists 2015 Past Psychological History: Depression Smoking Status: Current every day smoker Past Alcohol Use History: None Reported Past Drug Use History: None Reported General Exam Limitations: no limitations General appearance: alert, in no apparent distress Eye exam: Present: normal appearance, PERRL, EOMI. Absent: scleral icterus, conjunctival injection, periorbital swelling ENT exam: Present: normal exam, mucous membranes moist, other (patient does appear to have dental caries the left is no sign of abscess.) Neck exam: Present: normal inspection. Absent: tenderness, meningismus, lymphadenopathy Respiratory exam: Present: normal lung sounds bilaterally. Absent: respiratory distress, wheezes, rales, rhonchi, stridor Cardiovascular Exam: Present: regular rate, normal rhythm, normal heart sounds. Absent: systolic murmur, diastolic murmur, rubs, gallop, clicks Neurological exam: Present: alert, oriented X3 Psychiatric exam: Present: normal affect, normal mood Skin exam: Present: warm, dry, intact, normal color. Absent: rash Course Vital Signs 02/11/17 15:00 Temperature 98.4 F Pulse Rate 101 H Respiratory 20 Rate Blood Pressure 122/84 O2 Sat by Pulse 97 Oximetry Medical Decision Making - Medical Decision Making 42 yo female presents to the emergency Department chief complaint of left-sided dental pain. This elicits patient be medication and back. Discussed return for hours and follow-up. We discussed all patient's questions. He stated he understood and they're in agreement plan. They will be discharged. Disposition Clinical Impression: Dental caries Disposition: HOME SELF-CARE Condition: Stable Instructions: Toothache (ED) Additional Instructions: Please use medication as discussed. Please follow up with family doctor if symptoms have not improved over the next two days. Please return to the emergency room if your symptoms increase or worsen or for any other concerns. Prescriptions: Penicillin V Potassium [Pen Vee K] 500 mg PO TID #40 tab traMADol HCl [Ultram] 50 mg PO Q4H PRN #20 tab PRN Reason: Pain Referrals: Whitley Hopkins MD [STAFF PHYSICIAN] - 1-2 days Time of Disposition: 15:23
== END 2017-02-11 15:39 | disposition home or self-care (01) ==
LOC: EC 14:49
DX: K02.9 Dental caries, unspecified (principal); F17.200 Nicotine dependence, unspecified, uncomplicated
CPT/HCPCS: 99282

== ENCOUNTER 2017-02-21 07:02 | Emergency (ER) | payer OTHER ==
[2017-02-21 07:08] VITALS: TEMP 97.1
--- NOTE | 2017-02-21 08:06 | XR ---
EXAMINATION TYPE: XR hand complete RT DATE OF EXAM: 02/21/2017 CLINICAL HISTORY: pain TECHNIQUE: Frontal, lateral and oblique images of the right hand are obtained. COMPARISON: None. FINDINGS: There is no acute fracture/dislocation evident. The joint spaces appear within normal limi ts. The overlying soft tissue appears unremarkable. IMPRESSION: There is no acute fracture or dislocation ICD 10 NO FRACTURE, INITIAL EVALUATION
[2017-02-21] MEDS ORDERED: Acetaminophen-Codeine 300-30mg TAB PO STA (08:19)
--- NOTE | 2017-02-21 08:20 | ED ---
General Adult HPI - General Chief complaint: Extremity Injury, Upper Stated complaint: rt hand injury Time Seen by Provider: 02/21/17 07:25 Source: patient Mode of arrival: ambulatory Limitations: no limitations - Related Data Home Medications Medication Instructions Recorded Confirmed Ibuprofen [Motrin] 800 mg PO TID PRN 01/09/17 02/21/17 Cyclobenzaprine [Flexeril] 10 mg PO TID PRN 01/20/17 02/21/17 Previous Rx's Medication Instructions Recorded Hydrocodone/Acetaminophen [[place] 1 tab PO Q6HR PRN #15 tab 01/28/17 5-325] Penicillin V Potassium [Pen Vee K] 500 mg PO TID #40 tab 02/11/17 traMADol HCl [Ultram] 50 mg PO Q4H PRN #20 tab 02/11/17 Allergies Allergy/AdvReac Type Severity Reaction Status Date / Time No Known Allergies Allergy Verified 02/21/17 07:08 Review of Systems ROS Statement: Those systems with pertinent positive or pertinent negative responses have been documented in the HPI. ROS Other: All systems not noted in ROS Statement are negative. Past Medical History Past Medical History: No Reported History Additional Past Medical History / Comment(s): Ovarian Cyst History of Any Multi-Drug Resistant Organisms: None Reported Past Surgical History: Tubal Ligation Additional Past Surgical History / Comment(s): cyst removed off bliateral wrists 2015 Past Psychological History: Depression Smoking Status: Current every day smoker Past Alcohol Use History: None Reported Past Drug Use History: None Reported General Exam Limitations: no limitations Course Vital Signs 02/21/17 07:06 Temperature 97.1 F L Pulse Rate 99 Respiratory 18 Rate Blood Pressure 128/86 O2 Sat by Pulse 98 Oximetry Disposition Clinical Impression: Contusion of right hand Disposition: HOME SELF-CARE Condition: Good Instructions: Contusion in Adults (ED) Referrals: None,Stated [Primary Care Provider] - 1-2 days
[2017-02-21 08:41] VITALS: BP 125/76; PULSE 95; RESP 16
== END 2017-02-21 08:40 | disposition home or self-care (01) ==
LOC: EC 07:02
DX: S60.031A Contusion of right middle finger without damage to nail, initial encounter (principal); F17.200 Nicotine dependence, unspecified, uncomplicated; W23.0XXA Caught, crushed, jammed, or pinched between moving objects, initial encounter; Z79.2 Long term (current) use of antibiotics
CPT/HCPCS: 99283

== ENCOUNTER 2017-03-14 11:16 | Emergency (ER) | payer OTHER ==
[2017-03-14 11:29] VITALS: RESP 18
[2017-03-14] MEDS ORDERED: KETOROLAC 60 MG/2 ML VIAL IM STA (12:17)
--- NOTE | 2017-03-14 12:26 | ED ---
General Adult HPI - General Chief complaint: Back Pain/Injury Stated complaint: Back Pain Time Seen by Provider: 03/14/17 11:59 Source: patient, RN notes reviewed Mode of arrival: ambulatory Limitations: no limitations - History of Present Illness Initial comments: Patient 46-year-old female who presents emergency room today with a chief complaint of acute on chronic back pain. Denies any injury or trauma. States she is experiencing pain throughout the back. States worse with any movements. States she's tried Ur sounds tramadol at home along with ibuprofen with little relief. Patient does admit that this is the same pain that she's experienced in the past but is worse. Denies any bowel or bladder incontinence retention. Denies any saddle anesthesia. Denies any lumbar radiculopathy. Denies any other complaints or associated symptoms. Patient denies any recent fever, chills, shortness of breath, chest pain, abdominal pain, nausea or vomiting, numbness or tingling, dysuria or hematuria, constipation or diarrhea, headaches or visual changes, or any other complaints. - Related Data Home Medications Medication Instructions Recorded Confirmed Ibuprofen [Motrin] 800 mg PO TID PRN 01/09/17 03/14/17 Cyclobenzaprine [Flexeril] 10 mg PO TID PRN 01/20/17 03/14/17 Previous Rx's Medication Instructions Recorded Cyclobenzaprine [Flexeril] 10 mg PO TID #20 tab 03/14/17 Ibuprofen [Motrin] 600 mg PO Q6HR PRN #40 day 03/14/17 Allergies Allergy/AdvReac Type Severity Reaction Status Date / Time No Known Allergies Allergy Verified 03/14/17 11:46 Review of Systems ROS Statement: Those systems with pertinent positive or pertinent negative responses have been documented in the HPI. ROS Other: All systems not noted in ROS Statement are negative. Past Medical History Past Medical History: No Reported History Additional Past Medical History / Comment(s): Ovarian Cyst, back pain History of Any Multi-Drug Resistant Organisms: None Reported Past Surgical History: Tubal Ligation Additional Past Surgical History / Comment(s): cyst removed off bliateral wrists 2015 Past Psychological History: Depression Smoking Status: Current every day smoker Past Alcohol Use History: None Reported Past Drug Use History: None Reported General Exam - General Exam Comments Initial Comments: General: The patient is awake and alert, in no distress, and does not appear acutely ill. Eye: Pupils are equal, round and reactive to light, extra-ocular movements are intact. No nystagmus. There is normal conjunctiva bilaterally. No signs of icterus. Ears, nose, mouth and throat: There are moist mucous membranes and no oral lesions. Neck: The neck is supple, there is no tenderness or JVD. Cardiovascular: There is a regular rate and rhythm. No murmur, rub or gallop is appreciated. Respiratory: Lungs are clear to auscultation, respirations are non-labored, breath sounds are equal. No wheezes, stridor, rales, or rhonchi. Musculoskeletal: Normal ROM. patient does have diffuse tenderness lower lumbar spine both paravertebrally on the left and right as well. Worse with movements. No step-offs forms appreciated. Strength 5/5. Sensation intact. Pulses equal bilaterally 2+. Neurological: A&O x 3. CN II-XII intact, There are no obvious motor or sensory deficits. Coordination appears grossly intact. Speech is normal. Skin: Skin is warm and dry and no rashes or lesions are noted. Psychiatric: Cooperative, appropriate mood & affect, normal judgment. Limitations: no limitations Course Vital Signs 03/14/17 11:27 Temperature 99.0 F Pulse Rate 107 H Respiratory 18 Rate Blood Pressure 133/72 O2 Sat by Pulse 98 Oximetry Medical Decision Making - Medical Decision Making patient requesting Tylenol 3. A [employer] automated prescription system report was reviewed showing revealing that she didn't receive 12 Tylenol 3 on 2016. Advised patient she is follow-up family doctor. At this time will continue on anti-inflammatories and muscle relaxants for her symptoms. Disposition Clinical Impression: Acute exacerbation of chronic low back pain Disposition: HOME SELF-CARE Condition: Good Instructions: Chronic Back Pain (ED) Additional Instructions: Please use medication as discussed. Please follow-up with family doctor in the next 2 days of symptoms have not improved. Please return to emergency room if the symptoms increase or worsen or for any other concerns. Prescriptions: Cyclobenzaprine [Flexeril] 10 mg PO TID #20 tab Ibuprofen [Motrin] 600 mg PO Q6HR PRN #40 day PRN Reason: Pain Referrals: None,Stated [Primary Care Provider] - 1-2 days Lyle Peters MD [REFERRING] - 1-2 days Time of Disposition: 12:26
[2017-03-14 12:51] VITALS: BP 131/73; PULSE 100; TEMP 98
== END 2017-03-14 12:32 | disposition home or self-care (01) ==
LOC: EC 11:16
DX: G89.29 Other chronic pain (principal); M54.5 Low back pain; F17.200 Nicotine dependence, unspecified, uncomplicated
CPT/HCPCS: 99283 ×2; 96372 ×2; J1885

== ENCOUNTER 2017-03-21 07:33 | Emergency (ER) | payer OTHER ==
[2017-03-21 07:41] VITALS: BP 132/74; PULSE 115; RESP 20; TEMP 98.8
[2017-03-21] MEDS ORDERED: CYCLOBENZAPRINE 10MG STARTER 3 TAB BTL PO STA (08:04)
--- NOTE | 2017-03-21 08:05 | ED ---
Extremity Problem HPI - General Chief complaint: Extremity Problem,Nontraumatic Stated complaint: RT SHOULDER PAIN Time Seen by Provider: 03/21/17 07:51 Source: patient, RN notes reviewed, old records reviewed Mode of arrival: ambulatory Limitations: no limitations - History of Present Illness Initial comments: This is a 46-year-old female presents emergency Department chief complaint of acute exacerbation of chronic right shoulder pain. Patient reports that she was seen in the emergency department last week for similar complaints. Patient reports no new injuries or falls. She denies any peripheral paresthesias. She denies any elbow pain. She reports that she thinks that she woke up today with increased pain and thinks she may have slept on it wrong. She denies any fever or chills, chest pain, shortness of breath. She reports the pain is worse with range of motion. Patient reports that she's been taking Trilafon 800 for pain. She denies taking other medication for pain. - Related Data Home Medications Medication Instructions Recorded Confirmed Ibuprofen [Motrin] 800 mg PO TID PRN 01/09/17 03/14/17 Cyclobenzaprine [Flexeril] 10 mg PO TID PRN 01/20/17 03/14/17 Previous Rx's Medication Instructions Recorded Cyclobenzaprine [Flexeril] 10 mg PO TID #20 tab 03/14/17 Ibuprofen [Motrin] 600 mg PO Q6HR PRN #40 day 03/14/17 Cyclobenzaprine [Flexeril] 10 mg PO TID #15 tab 03/21/17 Ibuprofen [Motrin] 800 mg PO TID #20 tab 03/21/17 Allergies Allergy/AdvReac Type Severity Reaction Status Date / Time No Known Allergies Allergy Verified 03/21/17 07:41 Review of Systems ROS Statement: Those systems with pertinent positive or pertinent negative responses have been documented in the HPI. ROS Other: All systems not noted in ROS Statement are negative. Past Medical History Past Medical History: No Reported History Additional Past Medical History / Comment(s): Ovarian Cyst, back pain History of Any Multi-Drug Resistant Organisms: None Reported Past Surgical History: Tubal Ligation Additional Past Surgical History / Comment(s): cyst removed off bliateral wrists 2015 Past Psychological History: Depression Smoking Status: Current every day smoker Past Alcohol Use History: None Reported Past Drug Use History: None Reported General Exam - General Exam Comments Initial Comments: This is a 46-year-old female. Patient does not appear to be in any acute distress. Patient is resting comfortably in bed. Limitations: no limitations General appearance: alert, in no apparent distress Head exam: Present: atraumatic, normocephalic, normal inspection Eye exam: Present: normal appearance, PERRL, EOMI. Absent: scleral icterus, conjunctival injection, periorbital swelling ENT exam: Present: normal exam, mucous membranes moist Neck exam: Present: normal inspection. Absent: tenderness, meningismus, lymphadenopathy Respiratory exam: Present: normal lung sounds bilaterally. Absent: respiratory distress, wheezes, rales, rhonchi, stridor Cardiovascular Exam: Present: regular rate, normal rhythm, normal heart sounds. Absent: systolic murmur, diastolic murmur, rubs, gallop, clicks Right Shoulder Exam: Present: normal inspection, full ROM (Patient has full strength. Patient reports some tenderness over the anterior aspect of the shoulder.), tenderness (Mild tenderness over the anterior aspect of the shoulder.). Absent : swelling, abrasion Upper Arm exam: Present: normal inspection, full ROM Elbow exam: Present: normal inspection, full ROM Forearm Wrist exam: Present: normal inspection, full ROM Hand Wrist exam: Present: normal inspection Neuro motor exam: Present: wrist extension intact, thumb opposition intact, thumb IP flexion intact, thumb adduction intact Back exam: Present: normal inspection Neurological exam: Present: alert, oriented X3, CN II-XII intact Psychiatric exam: Present: normal affect, normal mood Skin exam: Present: warm, dry, intact, normal color. Absent: rash Course Vital Signs 03/21/17 07:38 Temperature 98.8 F Pulse Rate 115 H Respiratory 20 Rate Blood Pressure 132/74 O2 Sat by Pulse 99 Oximetry Medical Decision Making - Medical Decision Making 46-year-old female chief complaint of chronic right shoulder pain that was worse today after she woke up. She did take a hot bath and ports that is not feeling any better. Patient states she's been taking Motrin 800 for pain. She has full range of motion. Normal sensation distally. Patient is neurovascularly intact. She also has full strength with abduction, abduction, extension and flexion. [employer] report was ran. She did receive 20 [place] as 4 days ago. Discussed that I will not refill a pain prescription for her and she can take muscle relaxers. Patient was informed of this. Patient agrees that she does not need any x-rays due to the fact that is been chronic pain she's had no new injuries or falls and does have full strength and range of motion. Discussed that she needs to follow-up with orthopedic physician, she reports she is waiting to see her primary care physician to get a second referral. Patient was advised to return the emergency Department if there is any worsening signs or symptoms that occur. Disposition Clinical Impression: Chronic right shoulder pain Disposition: HOME SELF-CARE Condition: Good Instructions: Rotator Cuff Injury (ED) Additional Instructions: Patient is to rest, ice, and liver range of motion. Patient can take muscle relaxers as prescribed. Follow-up with her primary care physician of symptoms continue to persist. Recommended following up with orthopedic for further management. Prescriptions: Cyclobenzaprine [Flexeril] 10 mg PO TID #15 tab Ibuprofen [Motrin] 800 mg PO TID #20 tab Referrals: Lyle Peters MD [Primary Care Provider] - 1-2 days Constantino Quevedo DO [Doctor of Osteopathic Medicine] - 1-2 days Time of Disposition: 08:03
== END 2017-03-21 08:24 | disposition home or self-care (01) ==
LOC: EC 07:33
DX: G89.29 Other chronic pain (principal); M25.511 Pain in right shoulder; F17.200 Nicotine dependence, unspecified, uncomplicated
CPT/HCPCS: 99283

== ENCOUNTER 2017-03-31 07:17 | Emergency (ER) | payer OTHER ==
[2017-03-31 07:24] VITALS: BP 114/78; PULSE 86; TEMP 97.5
[2017-03-31] MEDS ORDERED: HYDROmorphone 1 MG/ML 1 ML SYRINGE IM STA (08:25)
[2017-03-31] MEDS ORDERED: ONDANSETRON ODT 4 MG TAB PO STA (08:25)
--- NOTE | 2017-03-31 08:29 | ED ---
General Adult HPI - General Chief complaint: Abdominal Pain Stated complaint: LLQ pain Time Seen by Provider: 03/31/17 08:15 Source: patient, RN notes reviewed Mode of arrival: ambulatory Limitations: no limitations - History of Present Illness Initial comments: Patient 46-year-old female with significant past medical history for ovarian cyst who presents emergency room today with a chief complaint of increased left lower quadrant pain. She states pain is consistent with ovarian cyst that she' s had in the past. She states started at 3:30 this morning. States that she tried ibuprofen with little relief the symptoms. Patient denies any new symptoms. Denies anything different from previous ovarian cyst. Patient denies any recent fever, chills, shortness of breath, chest pain, back pain, nausea or vomiting, numbness or tingling, dysuria or hematuria, constipation or diarrhea, headaches or visual changes, or any other complaints. - Related Data Home Medications Medication Instructions Recorded Confirmed Ibuprofen [Motrin] 800 mg PO TID PRN 01/09/17 03/31/17 Cyclobenzaprine [Flexeril] 10 mg PO TID PRN 01/20/17 03/31/17 Previous Rx's Medication Instructions Recorded Hydrocodone/Acetaminophen [[place] 1 each PO Q6HR PRN #15 tab 03/31/17 5-325] Ibuprofen [Motrin] 600 mg PO Q6HR PRN #40 day 03/31/17 Allergies Allergy/AdvReac Type Severity Reaction Status Date / Time No Known Allergies Allergy Verified 03/31/17 07:33 Review of Systems ROS Statement: Those systems with pertinent positive or pertinent negative responses have been documented in the HPI. ROS Other: All systems not noted in ROS Statement are negative. Past Medical History Past Medical History: No Reported History Additional Past Medical History / Comment(s): Ovarian Cyst, back pain History of Any Multi-Drug Resistant Organisms: None Reported Past Surgical History: Tubal Ligation Additional Past Surgical History / Comment(s): cyst removed off bilateral wrists 2015 Past Psychological History: Depression Smoking Status: Current every day smoker Past Alcohol Use History: None Reported Past Drug Use History: None Reported General Exam - General Exam Comments Initial Comments: General: The patient is awake and alert, in no distress, and does not appear acutely ill. Eye: Pupils are equal, round and reactive to light, extra-ocular movements are intact. No nystagmus. There is normal conjunctiva bilaterally. No signs of icterus. Ears, nose, mouth and throat: There are moist mucous membranes and no oral lesions. Neck: The neck is supple, there is no tenderness or JVD. Cardiovascular: There is a regular rate and rhythm. No murmur, rub or gallop is appreciated. Respiratory: Lungs are clear to auscultation, respirations are non-labored, breath sounds are equal. No wheezes, stridor, rales, or rhonchi. Gastrointestinal: Normal appearance and appear normal normal bowel sounds. Abdomen soft on palpation. Patient does have tenderness left lower quadrant. No rebound tenderness or guarding. Musculoskeletal: Normal ROM, no tenderness. Strength 5/5. Sensation intact. Pulses equal bilaterally 2+. Neurological: A&O x 3. CN II-XII intact, There are no obvious motor or sensory deficits. Coordination appears grossly intact. Speech is normal. Skin: Skin is warm and dry and no rashes or lesions are noted. Psychiatric: Cooperative, appropriate mood & affect, normal judgment. Limitations: no limitations Course Vital Signs 03/31/17 07:22 Temperature 97.5 F L Pulse Rate 86 Respiratory 18 Rate Blood Pressure 114/78 O2 Sat by Pulse 99 Oximetry Medical Decision Making - Medical Decision Making Options were discussed with patient about blood work and imaging. She states this is consistent with ovarian cyst that she's had in the past. At this time shows coccal not obtaining any blood work or imaging. She is comfortable with the idea of a shot of pain medication here in the emergency room for her symptoms as she states is consistent with ovarian cysts that she's had in the past. She'll be prescribed a short prescription of pain medicine to go home with advise follow-up in [facility]. Advised return if any symptoms increase worsen or for new concerns. Patient states understanding and is in agreement with the plan. Disposition Clinical Impression: Ovarian cyst Disposition: HOME SELF-CARE Condition: Good Instructions: Ovarian Cyst (ED) Additional Instructions: Please use medication as discussed. Please follow-up with [facility] / family doctor in the next 2 days of symptoms have not improved. Please return to emergency room if the symptoms increase or worsen or for any other concerns. Prescriptions: Hydrocodone/Acetaminophen [[place] 5-325] 1 each PO Q6HR PRN #15 tab PRN Reason: Pain Ibuprofen [Motrin] 600 mg PO Q6HR PRN #40 day PRN Reason: Pain Referrals: Lyle Peters MD [Primary Care Provider] - 1-2 days Time of Disposition: 08:27
[2017-03-31 09:19] VITALS: RESP 16
== END 2017-03-31 09:17 | disposition home or self-care (01) ==
LOC: EC 07:17
DX: N83.209 Unspecified ovarian cyst, unspecified side (principal); F17.200 Nicotine dependence, unspecified, uncomplicated; Z98.51 Tubal ligation status
CPT/HCPCS: 99283; 96372; J1170

== ENCOUNTER 2017-04-21 18:15 | Emergency (ER) | payer OTHER ==
[2017-04-21] MEDS ORDERED: traMADol 50 MG TAB PO STA (18:40)
--- NOTE | 2017-04-21 19:09 | XR ---
EXAMINATION TYPE: XR elbow complete RT DATE OF EXAM: 04/21/2017 CLINICAL HISTORY: Fall and medial elbow pain. TECHNIQUE: Frontal, lateral and oblique images of the right elbow are obtained. COMPARISON: 04/11/2015 FINDINGS: There is no acute fracture/dislocation evident in the right elbow. No abnormal fat pad si gns are seen. The overlying soft tissue appears unremarkable. IMPRESSION: There is no acute fracture or dislocation in the right elbow.
[2017-04-21] MEDS ORDERED: traMADol 50 MG STARTER PACK 3 TAB BTL PO STA (19:25)
--- NOTE | 2017-04-21 19:25 | ED ---
Upper Extremity HPI - General Chief Complaint: Extremity Injury, Upper Stated Complaint: rt elbow pain Time Seen by Provider: 04/21/17 18:35 Source: patient Mode of arrival: ambulatory Limitations: no limitations - History of Present Illness Initial Comments: 46-year-old female patient presents to emergency department today for evaluation of right elbow pain. Patient states that she had a fall about 1 week ago. Patient states that the pain has been worsening since then. She states that she has had a previous steroid injections to this extremity for tennis elbow. States that today she feels the elbow is swollen, and she is unable to fully extend without significant pain. She denies any fever or chills. She denies any redness to the joint. She denies any numbness or tingling to her hand or arm. She denies any other injuries from the fall. Patient denies any headache, neck pain, back pain, chest pain, shortness of breath, dizziness, weakness, abdominal pain, nausea, vomiting, or difficulties with bowel movements or urination. - Related Data Home Medications Medication Instructions Recorded Confirmed Ibuprofen [Motrin] 800 mg PO TID PRN 01/09/17 04/21/17 traMADol HCL [Ultram] 50 mg PO ONCE PRN 04/21/17 04/21/17 Previous Rx's Medication Instructions Recorded Ibuprofen [Motrin] 600 mg PO Q8HR PRN #30 tab 04/21/17 Allergies Allergy/AdvReac Type Severity Reaction Status Date / Time No Known Allergies Allergy Verified 04/21/17 18:48 Review of Systems ROS Statement: Those systems with pertinent positive or pertinent negative responses have been documented in the HPI. ROS Other: All systems not noted in ROS Statement are negative. Past Medical History Past Medical History: No Reported History Additional Past Medical History / Comment(s): Ovarian Cyst, back pain History of Any Multi-Drug Resistant Organisms: None Reported Past Surgical History: Tubal Ligation Additional Past Surgical History / Comment(s): cyst removed off bilateral wrists 2015 Past Psychological History: No Psychological Hx Reported Smoking Status: Current every day smoker Past Alcohol Use History: None Reported Past Drug Use History: None Reported General Exam Limitations: no limitations Head exam: Present: atraumatic, normocephalic, normal inspection ENT exam: Present: normal exam, normal oropharynx, mucous membranes moist Neck exam: Present: normal inspection. Absent: tenderness, meningismus, lymphadenopathy Respiratory exam: Present: normal lung sounds bilaterally. Absent: respiratory distress, wheezes, rales, rhonchi, stridor Cardiovascular Exam: Present: regular rate, normal rhythm, normal heart sounds. Absent: systolic murmur, diastolic murmur, rubs, gallop, clicks Extremities exam: Present: full ROM, tenderness (Over the medial right elbow.), normal capillary refill, joint swelling (Mild right elbow swelling.), other ( Skin is pink, warm, and dry. Minimal swelling noted to the right elbow. Cap refill less than 3 seconds. No erythema.). Absent: pedal edema, calf tenderness Back exam: Present: normal inspection. Absent: tenderness, vertebral tenderness Neurological exam: Present: alert, oriented X3, CN II-XII intact Psychiatric exam: Present: normal affect, normal mood Skin exam: Present: warm, dry, intact, normal color. Absent: rash Course Vital Signs 04/21/17 04/21/17 18:33 19:35 Temperature 97.5 F L 98 F Pulse Rate 114 H 88 Respiratory 20 18 Rate Blood Pressure 132/76 135/75 O2 Sat by Pulse 95 97 Oximetry Medical Decision Making - Medical Decision Making 46-year-old male patient presented for evaluation of right elbow pain. X-ray was negative for any acute fracture. Physical exam did reveal some swelling and tenderness. Patient diagnosed with bursitis at this time. She is given discussion for ibuprofen. She is instructed to follow-up with orthopedics for further evaluation and possible corticosteroid injection. She is instructed to return here immediately for any new, worsening, or concerning symptoms. Patient verbalizes understanding and agrees with this plan. - Radiology Data Radiology results: report reviewed, image reviewed Frontal, lateral, and oblique images of the right elbow were obtained. No fracture or dislocation evident. No abnormal fat pad signs are seen. The overlying soft tissue appears unremarkable. Impression by shows no acute fracture or dislocation. Disposition Clinical Impression: Right elbow pain, Bursitis of elbow Disposition: HOME SELF-CARE Condition: Good Instructions: Elbow Bursitis (ED) Additional Instructions: Apply cool or warm packs to the elbow. Take pain medication as directed. Follow-up with orthopedics for possible corticosteroid injection. Follow-up through primary care physician for recheck. Return here immediately for any new , worsening, or concerning symptoms. Prescriptions: Ibuprofen [Motrin] 600 mg PO Q8HR PRN #30 tab PRN Reason: Pain Referrals: Lyle Peters MD [Primary Care Provider] - 1-2 days Todd Verduzco MD [STAFF PHYSICIAN] - 1-2 days Time of Disposition: 19:25
[2017-04-21 19:36] VITALS: BP 135/75; PULSE 88; RESP 18; TEMP 98
== END 2017-04-21 19:36 | disposition home or self-care (01) ==
LOC: EC 18:15
DX: M70.31 Other bursitis of elbow, right elbow (principal); F17.200 Nicotine dependence, unspecified, uncomplicated
CPT/HCPCS: 99283

== ENCOUNTER 2017-05-26 14:35 | Emergency (ER) | payer OTHER ==
[2017-05-26 14:42] VITALS: TEMP 97.9
[2017-05-26] MEDS ORDERED: KETOROLAC 60 MG/2 ML VIAL IM STA (14:52)
--- NOTE | 2017-05-26 14:55 | ED ---
General Adult HPI - General Chief complaint: Abdominal Pain Stated complaint: Abd Pain Time Seen by Provider: 05/26/17 14:46 Source: patient, RN notes reviewed Mode of arrival: ambulatory Limitations: no limitations - History of Present Illness Initial comments: 46-year-old female presents to the emergency department with a chief complaint of pelvic pain. Patient states she is currently on her menstrual cycle. Patient states that she has a history of ovarian cysts. Patient states that she developed the left side for pelvic area so she is concerned she may have this. She tried giving her OB without success. She's had these in the past. She states the pain started TODAY. HE DENIES ANY CHANGES IN URINATION NAUSEA OR VOMITING WITH THIS. PATIENT WAS CONCERNED DUE TO HER SYMPTOMS SO SHE THOUGHT THAT SHE SHOULD BE SEEN. Patient denies any recent fever, chills, shortness of breath, chest pain, back pain, nausea vomiting, numbness or tingling, dysuria or hematuria, constipation or diarrhea, headaches or visual changes, or any other current symptoms. - Related Data Home Medications Medication Instructions Recorded Confirmed Ibuprofen [Motrin] 800 mg PO TID PRN 05/26/17 05/26/17 traMADol HCl [Ultram] 50 mg PO TID PRN 05/26/17 05/26/17 Allergies Allergy/AdvReac Type Severity Reaction Status Date / Time No Known Allergies Allergy Verified 05/26/17 15:04 Review of Systems ROS Statement: Those systems with pertinent positive or pertinent negative responses have been documented in the HPI. ROS Other: All systems not noted in ROS Statement are negative. Past Medical History Past Medical History: No Reported History Additional Past Medical History / Comment(s): Ovarian Cyst, back pain History of Any Multi-Drug Resistant Organisms: None Reported Past Surgical History: Tubal Ligation Additional Past Surgical History / Comment(s): cyst removed off bilateral wrists 2016 Past Psychological History: No Psychological Hx Reported Smoking Status: Current every day smoker Past Alcohol Use History: None Reported Past Drug Use History: None Reported General Exam - General Exam Comments Initial Comments: General: The patient is awake and alert, in no distress, and does not appear acutely ill. Eye: Pupils are equal, round. Ears, nose, mouth and throat: There are moist mucous membranes. Neck: The neck is supple, there is no tenderness. Cardiovascular: There is a regular rate and rhythm. No murmur, rub or gallop is appreciated. Respiratory: Lungs are clear to auscultation, respirations are non-labored, breath sounds are equal. No wheezes, stridor, rales, or rhonchi. Gastrointestinal: Soft, non-distended, tenderness in left lower quadrant of the abdomen without masses or organomegaly noted. There is no rebound or guarding present. No CVA tenderness. Bowel sounds are unremarkable. Back: There is no tenderness to palpation in the midline. There is no obvious deformity. No rashes noted. Musculoskeletal: Normal ROM, no tenderness, There is no pedal edema. There is no calf tenderness or swelling. Sensation intact. Pulses equal bilaterally 2+. Neurological: CN II-XII intact, There are no obvious motor or sensory deficits. Coordination appears grossly intact. Speech is normal. Skin: Skin is warm and dry and no rashes or lesions are noted. Psychiatric: Cooperative, appropriate mood & affect, normal judgment. Limitations: no limitations Course Vital Signs 05/26/17 05/26/17 14:40 15:28 Temperature 97.9 F Pulse Rate 110 H 90 Respiratory 18 20 Rate Blood Pressure 124/78 115/61 O2 Sat by Pulse 99 100 Oximetry Medical Decision Making - Medical Decision Making 46-year-old female presents emergency department with chief complaint of concern for ovarian cyst with pelvic pain. At this time we reviewed the patient 's lab work was reviewed her results as well. There is no white count vital signs stable. Patient is currently on her menstrual cycle. This and we discussed the could be due to that pain. We did discuss other etiologies when to return the emergency Department appropriate follow-up. Patient stated that she understood and she is in agreement with this plan. All questions have been answered. She'll be discharged. - Lab Data Result diagrams: 05/26/17 17:07 05/26/17 17:07 Lab Results 05/26/17 05/26/17 05/26/17 Range/Units 15:31 15:31 17:07 WBC 10.1 (3.8-10.6) k/uL RBC 4.42 (3.80-5.40) m/uL Hgb 13.5 (11.4-16.0) gm/dL Hct 44.2 (34.0-46.0) % MCV 100.0 (80.0-100.0) fL MCH 30.6 (25.0-35.0) pg MCHC 30.6 L (31.0-37.0) g/dL RDW 14.1 (11.5-15.5) % Plt Count 385 (150-450) k/uL Neutrophils % 71 % Lymphocytes % 21 % Monocytes % 5 % Eosinophils % 1 % Basophils % 0 % Neutrophils # 7.1 (1.3-7.7) k/uL Lymphocytes # 2.1 (1.0-4.8) k/uL Monocytes # 0.5 (0-1.0) k/uL Eosinophils # 0.1 (0-0.7) k/uL Basophils # 0.0 (0-0.2) k/uL Sodium (137-145) mmol/L Potassium (3.5-5.1) mmol/L Chloride (98-107) mmol/L Carbon Dioxide (22-30) mmol/L Anion Gap mmol/L BUN (7-17) mg/dL Creatinine (0.52-1.04) mg/dL Est GFR (MDRD) Af Amer (>60 ml/min/1.73 sqM) Est GFR (MDRD) Non-Af (>60 ml/min/1.73 sqM) Glucose (74-99) mg/dL Calcium (8.4-10.2) mg/dL Total Bilirubin (0.2-1.3) mg/dL AST (14-36) U/L ALT (9-52) U/L Alkaline Phosphatase (38-126) U/L Total Protein (6.3-8.2) g/dL Albumin (3.5-5.0) g/dL Urine Color Yellow Urine Appearance Clear (Clear) Urine pH 6.5 (5.0-8.0) Ur Specific [place] 1.014 (1.001-1.035) Urine Protein Negative (Negative) Urine Glucose (UA) Negative (Negative) Urine Ketones Negative (Negative) Urine Blood Moderate H (Negative) Urine Nitrite Negative (Negative) Urine Bilirubin Negative (Negative) Urine Urobilinogen <2.0 (<2.0) mg/dL Ur Leukocyte Esterase Negative (Negative) Urine RBC 6 H (0-5) /hpf Urine WBC 1 (0-5) /hpf Ur Squamous Epith Cells 1 (0-4) /hpf Urine Mucus Few H (None) /hpf Urine HCG, Qual Not Detected (Not Detectd) 05/26/17 Range/Units 17:07 WBC (3.8-10.6) k/uL RBC (3.80-5.40) m/uL Hgb (11.4-16.0) gm/dL Hct (34.0-46.0) % MCV (80.0-100.0) fL MCH (25.0-35.0) pg MCHC (31.0-37.0) g/dL RDW (11.5-15.5) % Plt Count (150-450) k/uL Neutrophils % % Lymphocytes % % Monocytes % % Eosinophils % % Basophils % % Neutrophils # (1.3-7.7) k/uL Lymphocytes # (1.0-4.8) k/uL Monocytes # (0-1.0) k/uL Eosinophils # (0-0.7) k/uL Basophils # (0-0.2) k/uL Sodium 139 (137-145) mmol/L Potassium 4.4 (3.5-5.1) mmol/L Chloride 107 (98-107) mmol/L Carbon Dioxide 27 (22-30) mmol/L Anion Gap 5 mmol/L BUN 10 (7-17) mg/dL Creatinine 0.70 (0.52-1.04) mg/dL Est GFR (MDRD) Af Amer >60 (>60 ml/min/1.73 sqM) Est GFR (MDRD) Non-Af >60 (>60 ml/min/1.73 sqM) Glucose 83 (74-99) mg/dL Calcium 8.7 (8.4-10.2) mg/dL Total Bilirubin 0.2 (0.2-1.3) mg/dL AST 19 (14-36) U/L ALT 28 (9-52) U/L Alkaline Phosphatase 75 (38-126) U/L Total Protein 5.2 L (6.3-8.2) g/dL Albumin 2.8 L (3.5-5.0) g/dL Urine Color Urine Appearance (Clear) Urine pH (5.0-8.0) Ur Specific [place] (1.001-1.035) Urine Protein (Negative) Urine Glucose (UA) (Negative) Urine Ketones (Negative) Urine Blood (Negative) Urine Nitrite (Negative) Urine Bilirubin (Negative) Urine Urobilinogen (<2.0) mg/dL Ur Leukocyte Esterase (Negative) Urine RBC (0-5) /hpf Urine WBC (0-5) /hpf Ur Squamous Epith Cells (0-4) /hpf Urine Mucus (None) /hpf Urine HCG, Qual (Not Detectd) - Radiology Data Radiology results: report reviewed, image reviewed Disposition Clinical Impression: Abdominal pain Disposition: HOME SELF-CARE Condition: Stable Instructions: Abdominal Pain (ED) Additional Instructions: Please use medication as discussed. Please follow up with family doctor if symptoms have not improved over the next two days. Please return to the emergency room if your symptoms increase or worsen or for any other concerns. Referrals: Hiro Nugent MD [STAFF PHYSICIAN] - 1-2 days Time of Disposition: 18:03
[2017-05-26 15:30] VITALS: RESP 20
[2017-05-26 15:55] LABS: Appearance,Urine Clear (Clear); Bilirubin,Urine Negative (Negative); Glucose,Urine (UA) Negative (Negative); Ketones,Urine Negative (Negative); Leukocyte Esterase,Urine Negative (Negative); Mucus,Urine Few /hpf; Nitrite,Urine Negative (Negative); PH, Urine 6.5 (5.0-8.0); Particle Count 3904; Protein,Urine Negative (Negative); RBC,Urine 6 /hpf (0-5); Specific Gravity,Urine 1.014 (1.001-1.035); Squamous Epithelial Cell,Urine 1 /hpf (0-4); UA Billing (MACRO vs. MICRO) MICRO; Urobilinogen,Urine <2.0 mg/dL (<2.0); WBC,Urine 1 /hpf (0-5)
--- NOTE | 2017-05-26 16:07 | US ---
EXAMINATION TYPE: US transvaginal DATE OF EXAM: 05/26/2017 COMPARISON: CT 12/2016, US November 27, 2016 and December 12, 2016 CLINICAL HISTORY: LLQ Pain. TECHNIQUE: Transvaginal (TV) Date of LMP: 05/24/2017 EXAM MEASUREMENTS: Uterus: 7.3 x 3.7 x 4.1 cm Endometrial Stripe: 0.4 cm Right Ovary: 1.6 x 0.8 x 1.8 cm Left Ovary: 1.9 x 1.0 x 1.5 cm 1. Uterus: Anteverted wnl 2. Endometrium: wnl 3. Right Ovary: wnl 4. Left Ovary: wnl Spectral, color and waveform doppler imaging shows good arterial and venous flow within the ovaries . 5. Bilateral Adnexa: Prominent vessels visualized in the left adnexa 6. Posterior cul-de-sac: wnl IMPRESSION: No suspicious finding is seen to account for patient's symptoms.
--- NOTE | 2017-05-26 17:43 | XR ---
EXAMINATION TYPE: XR abdomen 2V DATE OF EXAM: 05/26/2017 COMPARISON: 12/12/2016 HISTORY: Abdominal pain TECHNIQUE: 2 views FINDINGS: there is no sign of intestinal obstruction or pneumoperitoneum. Fecal pattern is normal. There is no evidence of a mass. There are no pathologic calcifications over the kidneys. Bony structures appear i ntact. Lung bases are clear. IMPRESSION: Nonacute abdomen. No change.
[2017-05-26 17:51] LABS: ALT 28 U/L (9-52); AST 19 U/L (14-36); Alkaline Phosphatase 75 U/L (38-126); Anion Gap 5 mmol/L; Blood Urea Nitrogen 10 mg/dL (7-17); Calcium 8.7 mg/dL (8.4-10.2); Carbon Dioxide 27 mmol/L (22-30); Chloride 107 mmol/L (98-107); Glucose 83 mg/dL (74-99); Non-African American GFR(MDRD) >60 (>60 ml/min/1.73 sqM); Potassium 4.4 mmol/L (3.5-5.1); Sodium 139 mmol/L (137-145); Total Bilirubin 0.2 mg/dL (0.2-1.3); Total Protein 5.2 g/dL (6.3-8.2)
[2017-05-26 17:52] LABS: Basophils % (A) 0 %; CH 31.8; CHCM 31.9; Eosinophils # (A) 0.1 k/uL (0-0.7); Eosinophils % (A) 1 %; HCT 44.2 % (34.0-46.0); HDW 2.01; HGB 13.5 gm/dL (11.4-16.0); Luc # (Auto) 0.13; Luc % (Auto) 1; Lymphocytes # (A) 2.1 k/uL (1.0-4.8); Lymphocytes % (A) 21 %; MCH 30.6 pg (25.0-35.0); MCHC 30.6 g/dL (31.0-37.0); Mean Platelet Volume 7.5; Monocytes # (A) 0.5 k/uL (0-1.0); Monocytes % (A) 5 %; Neutrophils # (A) 7.1 k/uL (1.3-7.7); Neutrophils % (A) 71 %; RBC 4.42 m/uL (3.80-5.40); RDW 14.1 % (11.5-15.5); WBC 10.1 k/uL (3.8-10.6)
[2017-05-26 18:31] VITALS: BP 121/76; PULSE 78
== END 2017-05-26 18:33 | disposition home or self-care (01) ==
LOC: EC 14:35
DX: R10.2 Pelvic and perineal pain (principal); F17.200 Nicotine dependence, unspecified, uncomplicated; Z98.51 Tubal ligation status
CPT/HCPCS: 99284; 96372; 36415; 80053; 85025; 81001; 81025; 74020; 93975; 76830; J1885

== ENCOUNTER 2017-07-01 12:19 | Emergency (ER) | payer OTHER ==
[2017-07-01 12:52] VITALS: BP 124/74; PULSE 95; RESP 18; TEMP 98.6
--- NOTE | 2017-07-01 13:23 | ED ---
General Adult HPI - General Chief complaint: Extremity Injury, Lower Stated complaint: Elbow Pain Time Seen by Provider: 07/01/17 13:15 Source: patient, RN notes reviewed Mode of arrival: ambulatory Limitations: no limitations - History of Present Illness Initial comments: Patient for 46-year-old female who presents emergency room today with a chief complaint of pain to the left elbow over the last few days. She does not that it feels similar to tenderness over that she sat on the opposite side of the past. She states she had cortisone injections for this. Patient denies any other complaints or symptoms. Denies any significant injury or trauma. She does admit that it's worse with certain movements or when she is trying to grasp things with the left hand. Patient denies any recent fever, chills, shortness of breath, chest pain, back pain, abdominal pain, nausea or vomiting, numbness or tingling, headaches or visual changes, or any other complaints. - Related Data Home Medications Medication Instructions Recorded Confirmed Ibuprofen [Motrin] 800 mg PO TID PRN 05/26/17 06/09/17 Previous Rx's Medication Instructions Recorded Ibuprofen [Motrin] 800 mg PO Q6HR #30 tab 07/01/17 predniSONE 50 mg PO DAILY #5 tab 07/01/17 Allergies Allergy/AdvReac Type Severity Reaction Status Date / Time No Known Allergies Allergy Verified 07/01/17 12:52 Review of Systems ROS Statement: Those systems with pertinent positive or pertinent negative responses have been documented in the HPI. ROS Other: All systems not noted in ROS Statement are negative. Past Medical History Past Medical History: No Reported History Additional Past Medical History / Comment(s): Ovarian Cyst, back and neck pain History of Any Multi-Drug Resistant Organisms: None Reported Past Surgical History: Tubal Ligation Additional Past Surgical History / Comment(s): cyst removed off bilateral wrists 2016 Past Psychological History: No Psychological Hx Reported Smoking Status: Current every day smoker Past Alcohol Use History: None Reported Past Drug Use History: None Reported General Exam - General Exam Comments Initial Comments: General: The patient is awake and alert, in no distress, and does not appear acutely ill. Neck: The neck is supple, there is no tenderness or JVD. Cardiovascular: There is a regular rate and rhythm. No murmur, rub or gallop is appreciated. Respiratory: Lungs are clear to auscultation, respirations are non-labored, breath sounds are equal. No wheezes, stridor, rales, or rhonchi. Musculoskeletal: patient has normal appearance of the left elbow with no obvious swelling bruising or deformity. She shows good range of motion but does have tenderness with flexion and extension. Patient is tender over the lateral aspect of the left elbow on exam. She does have tenderness with extension of the left wrist in a flexed position of the left elbow against resistance. Sensations are intact pulses equal bilaterally 2+. Strength is 5/ 5. Neurological: A&O x 3. CN II-XII intact, There are no obvious motor or sensory deficits. Coordination appears grossly intact. Speech is normal. Skin: Skin is warm and dry and no rashes or lesions are noted. Psychiatric: Normal mood and affect. Limitations: no limitations Course Vital Signs 07/01/17 12:51 Temperature 98.6 F Pulse Rate 95 Respiratory 18 Rate Blood Pressure 124/74 O2 Sat by Pulse 98 Oximetry Medical Decision Making - Medical Decision Making patient admits that these symptoms are consistent with tenderness over that she' s had in the past. Her physical exam findings are consistent with a tennis elbow. Patient will be advised continue her anti-inflammatories also use Tylenol for pain as needed and given a short prescription of steroids that she is able follow-up the orthopedic doctor. Disposition Clinical Impression: Left tennis elbow Disposition: HOME SELF-CARE Condition: Good Instructions: Tennis Elbow (ED) Additional Instructions: Please use medication as discussed. Please follow-up with orthopedic/family doctor in the next 2-5 days of symptoms have not improved. Please return to emergency room if the symptoms increase or worsen or for any other concerns. Prescriptions: Ibuprofen [Motrin] 800 mg PO Q6HR #30 tab predniSONE 50 mg PO DAILY #5 tab Referrals: None,Stated [Primary Care Provider] - 1-2 days Carlton Wharton DO [Doctor of Osteopathic Medicine] - 1-2 days Time of Disposition: 13:22
== END 2017-07-01 13:36 | disposition home or self-care (01) ==
LOC: EC 12:19
DX: M77.12 Lateral epicondylitis, left elbow (principal); F17.200 Nicotine dependence, unspecified, uncomplicated
CPT/HCPCS: 99283

== ENCOUNTER 2017-08-25 09:25 | Emergency (ER) | payer OTHER ==
[2017-08-25 09:48] VITALS: BP 140/86; PULSE 115; RESP 18; TEMP 98.3
--- NOTE | 2017-08-25 10:07 | ED ---
Upper Extremity HPI - General Chief Complaint: Extremity Injury, Upper Stated Complaint: Elbow pain Time Seen by Provider: 08/25/17 09:45 Source: patient Mode of arrival: ambulatory Limitations: no limitations - History of Present Illness Initial Comments: This is a 46-year-old female who presents with a chief complaint of left elbow pain that has been worsening over the past couple of months. She was unable to be seen by orthopedics today. She has significant history of right lateral epicondylitis that has been treated in the past with corticosteroid injections. She is currently taking Motrin 800 which is last taken at approximately 7 AM today. She denies any injury. 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 She states her left elbow has not been treated in the past with steroid injections. Patient states the pain is worse with flexing and extending at the elbow and occasionally experiences numbness and tingling up and down the left arm. - Related Data Home Medications Medication Instructions Recorded Confirmed Ibuprofen [Motrin] 800 mg PO Q6HR PRN 08/25/17 08/25/17 Previous Rx's Medication Instructions Recorded Acetaminophen-Codeine 300-30mg 1 tab PO Q4H PRN #20 tablet 08/25/17 [Tylenol #3] predniSONE 50 mg PO DAILY #5 tab 08/25/17 Allergies Allergy/AdvReac Type Severity Reaction Status Date / Time No Known Allergies Allergy Verified 08/25/17 09:59 Review of Systems ROS Statement: Those systems with pertinent positive or pertinent negative responses have been documented in the HPI. ROS Other: All systems not noted in ROS Statement are negative. Past Medical History Past Medical History: No Reported History Additional Past Medical History / Comment(s): Ovarian Cyst, back and neck pain History of Any Multi-Drug Resistant Organisms: None Reported Past Surgical History: Tubal Ligation Additional Past Surgical History / Comment(s): cyst removed off bilateral wrists 2016 Past Psychological History: No Psychological Hx Reported Smoking Status: Current some day smoker Past Alcohol Use History: None Reported Past Drug Use History: None Reported General Exam Limitations: no limitations General appearance: alert, in no apparent distress Head exam: Present: atraumatic, normocephalic, normal inspection Eye exam: Present: normal appearance, PERRL, EOMI. Absent: scleral icterus, conjunctival injection, periorbital swelling Cardiovascular Exam: Present: regular rate, normal rhythm, normal heart sounds. Absent: systolic murmur, diastolic murmur, rubs, gallop, clicks Extremities exam: Present: tenderness (Tender with palpation over the left epicondyle), other (Left elbow patient reports pain with wrist extension, pronation supination neurovascular intact) Neurological exam: Present: alert, oriented X3, CN II-XII intact Psychiatric exam: Present: normal affect, normal mood Skin exam: Present: warm, dry, intact, normal color. Absent: rash Course Vital Signs 08/25/17 09:43 Temperature 98.3 F Pulse Rate 115 H Respiratory 18 Rate Blood Pressure 140/86 O2 Sat by Pulse 99 Oximetry Medical Decision Making - Medical Decision Making This is a 46-year-old female who presented to the ED with left elbow pain. X- ray was ordered and the patient was diagnosed with left lateral epicondylitis. The patient will be discharged home with prescriptions for prednisone 50 mg and Tylenol with Codeine. She will discontinue the Motrin 800 and may try using the tennis elbow brace she has at home. The patient was instructed to follow up with orthopedics for further evaluation and management. Disposition Clinical Impression: Lateral epicondylitis Disposition: HOME SELF-CARE Condition: Stable Instructions: Tennis Elbow (ED) Additional Instructions: Please return to the Emergency Department if symptoms worsen or any other concerns. Prescriptions: Acetaminophen-Codeine 300-30mg [Tylenol #3] 1 tab PO Q4H PRN #20 tablet PRN Reason: pain predniSONE 50 mg PO DAILY #5 tab Referrals: None,Stated [Primary Care Provider] - 1-2 days Time of Disposition: 10:58
--- NOTE | 2017-08-25 10:30 | XR ---
EXAMINATION TYPE: XR elbow complete LT DATE OF EXAM: 08/25/2017 COMPARISON: NONE HISTORY: 46-year-old female with pain TECHNIQUE: 3 views FINDINGS: There is a small supracondylar spur, congenital variation. Suggestion of minimal degenerative spurrin g in the ulnotrochlear joint. No elbow joint effusion. No acute fracture, subluxation, or dislocation seen. IMPRESSION: 1. Suggestion of minimal degenerative spurring in the ulnotrochlear joint. 2. 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 3. No acute osseous abnormality seen.
== END 2017-08-25 11:13 | disposition home or self-care (01) ==
LOC: EC 09:25
DX: M77.12 Lateral epicondylitis, left elbow (principal); F17.200 Nicotine dependence, unspecified, uncomplicated
CPT/HCPCS: 99283

== ENCOUNTER 2017-09-23 09:25 | Emergency (ER) | payer OTHER ==
[2017-09-23] MEDS ORDERED: ACETAMINOPHEN TAB 500 MG TAB PO STA (10:05)
--- NOTE | 2017-09-23 10:33 | ED ---
ENT HPI - General Chief complaint: ENT Stated complaint: Sore throat Time Seen by Provider: 09/23/17 10:05 Source: patient, RN notes reviewed, old records reviewed Mode of arrival: ambulatory Limitations: no limitations - History of Present Illness Initial comments: This patient is a 47-year-old female chief complaint of sore throat, fever, bodyaches and worsening back pain due to muscle spasms for the past few days. Patient reports that she notice she had some weight actually dates over her right tonsil. She states in the past she's had severe strap. I'm just concerned this was a reoccurring. She's had no Motrin or Tylenol. No over the counter medications. She reports that she has been having normal bowel habits and urinations. Denies saddle anesthesase associated with bakc pain. - Related Data Home Medications Medication Instructions Recorded Confirmed Ibuprofen [Motrin] 800 mg PO Q6HR PRN 08/25/17 09/23/17 Previous Rx's Medication Instructions Recorded Acetaminophen-Codeine 300-30mg 1 tab PO Q8H PRN #12 tablet 09/23/17 [Tylenol #3] Azithromycin [Zithromax Z-pack] 250 mg PO DIRECTED #6 tab 09/23/17 Cyclobenzaprine [Flexeril] 10 mg PO TID #12 tab 09/23/17 Allergies Allergy/AdvReac Type Severity Reaction Status Date / Time No Known Allergies Allergy Verified 09/23/17 09:54 Review of Systems ROS Statement: Those systems with pertinent positive or pertinent negative responses have been documented in the HPI. ROS Other: All systems not noted in ROS Statement are negative. Past Medical History Past Medical History: No Reported History Additional Past Medical History / Comment(s): Ovarian Cyst, back and neck pain History of Any Multi-Drug Resistant Organisms: None Reported Past Surgical History: Tubal Ligation Additional Past Surgical History / Comment(s): cyst removed off bilateral wrists 2016 Past Psychological History: No Psychological Hx Reported Smoking Status: Current some day smoker Past Alcohol Use History: None Reported Past Drug Use History: None Reported General Exam - General Exam Comments Initial Comments: This patient is a 47 year old female with CC of sore throat, and back pain. Alert and oirented. No distress. Limitations: no limitations General appearance: alert, in no apparent distress Head exam: Present: atraumatic, normocephalic, normal inspection Eye exam: Present: normal appearance, PERRL, EOMI. Absent: scleral icterus, conjunctival injection, periorbital swelling ENT exam: Present: normal oropharynx (exudate and erythmea over right tonsil. ) , mucous membranes moist. Absent: normal exam Neck exam: Present: normal inspection. Absent: tenderness, meningismus, lymphadenopathy Respiratory exam: Present: normal lung sounds bilaterally. Absent: respiratory distress, wheezes, rales, rhonchi, stridor Cardiovascular Exam: Present: regular rate, normal rhythm, normal heart sounds. Absent: systolic murmur, diastolic murmur, rubs, gallop, clicks Extremities exam: Present: normal inspection, full ROM, normal capillary refill. Absent: tenderness, pedal edema, joint swelling, calf tenderness Back exam: Present: normal inspection, paraspinal tenderness, vertebral tenderness (lumbar vertebral tenderness and paraspinal tenderness) Neurological exam: Present: alert, oriented X3, CN II-XII intact Course Vital Signs 09/23/17 09/23/17 09:30 10:43 Temperature 99.3 F 99.0 F Pulse Rate 110 H 95 Respiratory 18 20 Rate Blood Pressure 152/71 134/56 O2 Sat by Pulse 99 99 Oximetry Medical Decision Making - Medical Decision Making 47-year-old female with a sore throat bodyaches fever, and chronic exacerbation of back pain. She does have a whole appears to be strep pharyngitis. However patient's rapid strep is negative. I will put the patient on azithromycin to cover for bacterial pharyngitis. I discussed I can also treat her back pain at this time of loss relaxers and a short course of pain medicine. Just got she said neutron or other concerns for imaging at this time. Patient agrees. I just guessed return for following up with primary care provider. - Lab Data Lab Results 09/23/17 Range/Units 09:32 Group A Strep Rapid Negative (Negative) Disposition Clinical Impression: Pharyngitis, Back pain Disposition: HOME SELF-CARE Condition: Good Instructions: Pharyngitis (ED), Back Pain (ED) Additional Instructions: Patient advised to rest, apply heating packs year back. Take the medicine as prescribed. Return to the emergency department if any alarming signs or symptoms occur. Recommended following up with primary care provider and orthopedic. Prescriptions: Acetaminophen-Codeine 300-30mg [Tylenol #3] 1 tab PO Q8H PRN #12 tablet PRN Reason: Pain Azithromycin [Zithromax Z-pack] 250 mg PO DIRECTED #6 tab Cyclobenzaprine [Flexeril] 10 mg PO TID #12 tab Referrals: None,Stated [Primary Care Provider] - 1-2 days Whitley Hopkins MD [STAFF PHYSICIAN] - 1-2 days Time of Disposition: 10:31
[2017-09-23 10:44] VITALS: BP 134/56; PULSE 95; RESP 20; TEMP 99
== END 2017-09-23 10:43 | disposition home or self-care (01) ==
LOC: EC 09:25
DX: J02.9 Acute pharyngitis, unspecified (principal); M54.9 Dorsalgia, unspecified; F17.200 Nicotine dependence, unspecified, uncomplicated
CPT/HCPCS: 87081; 87430; 99283

== ENCOUNTER 2017-11-09 22:17 | Emergency (ER) | payer OTHER ==
[2017-11-09 22:35] VITALS: BP 143/73; PULSE 99; RESP 18; TEMP 97.1
[2017-11-09] MEDS ORDERED: HYDROcodone/APAP 5-325MG 1 EACH TAB PO STA (22:43)
--- NOTE | 2017-11-09 22:45 | ED ---
Upper Extremity HPI - General Chief Complaint: Extremity Injury, Upper Stated Complaint: shoulder & back pain Time Seen by Provider: 11/09/17 22:36 Source: patient, RN notes reviewed Mode of arrival: ambulatory Limitations: no limitations - History of Present Illness Initial Comments: 47-year-old female presents emergency Department chief complaint right shoulder , back pain. Patient has chronic issues the shoulder and back. Patient states currently taking Tylenol coating that she has an issue with her scaphoid. Patient states it's not tolerating. Patient states he worse after her nephew jumped on her shoulders. Patient states that she has full range of motion denies any paresthesias. Patient denies neck pain no focal weakness. - Related Data Home Medications Medication Instructions Recorded Confirmed Ibuprofen [Motrin] 800 mg PO Q6HR PRN 08/25/17 09/23/17 Previous Rx's Medication Instructions Recorded Acetaminophen-Codeine 300-30mg 1 tab PO Q8H PRN #12 tablet 09/23/17 [Tylenol #3] Azithromycin [Zithromax Z-pack] 250 mg PO DIRECTED #6 tab 09/23/17 Cyclobenzaprine [Flexeril] 10 mg PO TID #12 tab 09/23/17 Cyclobenzaprine [Flexeril] 10 mg PO TID PRN #15 tab 11/09/17 Allergies Allergy/AdvReac Type Severity Reaction Status Date / Time No Known Allergies Allergy Verified 11/09/17 22:35 Review of Systems ROS Statement: Those systems with pertinent positive or pertinent negative responses have been documented in the HPI. ROS Other: All systems not noted in ROS Statement are negative. Past Medical History Past Medical History: No Reported History Additional Past Medical History / Comment(s): Ovarian Cyst, back and neck pain History of Any Multi-Drug Resistant Organisms: None Reported Past Surgical History: Tubal Ligation Additional Past Surgical History / Comment(s): cyst removed off bilateral wrists 2016 Past Psychological History: No Psychological Hx Reported Smoking Status: Current every day smoker Past Alcohol Use History: None Reported Past Drug Use History: None Reported General Exam Limitations: no limitations General appearance: alert, in no apparent distress Neck exam: Present: normal inspection, full ROM. Absent: tenderness, meningismus, lymphadenopathy Respiratory exam: Present: normal lung sounds bilaterally. Absent: respiratory distress, wheezes, rales, rhonchi, stridor, chest wall tenderness Cardiovascular Exam: Present: regular rate, normal rhythm, normal heart sounds. Absent: systolic murmur, diastolic murmur, rubs, gallop, clicks Extremities exam: Present: other (Diffuse tenderness the right shoulder, right scapular region patient's full range of motion full-strength neurovascular intact) Back exam: Present: full ROM, tenderness, paraspinal tenderness. Absent: vertebral tenderness Neurological exam: Present: alert, oriented X3, CN II-XII intact, reflexes normal. Absent: motor sensory deficit Course Vital Signs 11/09/17 22:32 Temperature 97.1 F L Pulse Rate 99 Respiratory 18 Rate Blood Pressure 143/73 O2 Sat by Pulse 100 Oximetry Medical Decision Making - Medical Decision Making 47-year-old female presented for right shoulder back pain. This is a chronic issue. He is exacerbated by her nephew jumping on her. Patient has appointment with orthopedics on Friday. Patient be given Flexeril and discharged. Disposition Clinical Impression: Shoulder pain, Back pain Disposition: HOME SELF-CARE Condition: Stable Instructions: Back Pain (ED) Additional Instructions: Please return to the Emergency Department if symptoms worsen or any other concerns. Prescriptions: Cyclobenzaprine [Flexeril] 10 mg PO TID PRN #15 tab PRN Reason: Muscle Spasm Referrals: None,Stated [Primary Care Provider] - 1-2 days Time of Disposition: 22:45
== END 2017-11-09 22:55 | disposition home or self-care (01) ==
LOC: EC 22:17
DX: G89.29 Other chronic pain (principal); M25.511 Pain in right shoulder; M54.9 Dorsalgia, unspecified; F17.200 Nicotine dependence, unspecified, uncomplicated
CPT/HCPCS: 99283

== ENCOUNTER 2017-12-08 10:45 | Day surgery (SDC) | payer OTHER ==
[2017-12-05 11:45] VITALS: BMI 28.2
[~2017-12-08 10:45] MED LIST: LACTATED RINGERS 1,000 ML IV SCH; LIDOCAINE 1% 20 ML VIAL (10MG/ML) FOR IV START INTRADERMA PRN; MORPHINE SULFATE 2 MG/ML SYRINGE IV PRN; ONDANSETRON ODT 4 MG TAB PO ONE; ceFAZolin IN SWFI 2 GM/20 ML SYRINGE IVP ONE
[2017-12-08 11:29] VITALS: RESP 16; TEMP 98.5
[2017-12-08] MEDS ORDERED: MIDAZOLAM 2 MG/2 ML VIAL IV ONE (12:19)
[2017-12-08] MEDS ORDERED: fentaNYL (PF) 50 MCG/ML 2 ML AMP IV ONE (12:19)
--- NOTE | 2017-12-08 12:45 | P.ONQ ---
Anesthesiology Proc Note - PNB - Peripheral Nerve Block Performed Right Axillary Single Time Out Performed: Yes Procedure Start Time: 12:20 Indication: Acute Post-Operative Pain, Analgesia Specifically requested for management of pain by DrAristeo: Marcus Wharton Sedation Type: Sedate with meaningful contact maintained Preparation: Sterile Prep Position: Supine Catheter: None Needle Types: Other (see comment) (Pajunk) Needle Size: 50mm (2") Needle Gauge: 21 Technique: Ultrasound Injectate: 0.5% Ropivacaine (see comment for volume) (30) Blood Aspirated: No Pain Paresthesia on Injection Noted: No Resistance on Injection: Normal Events: Uneventful and Well Tolerated
[2017-12-08] MEDS ORDERED: fentaNYL (PF) 50 MCG/ML 2 ML AMP ONE (12:49)
[2017-12-08] MEDS ORDERED: MIDAZOLAM 2 MG/2 ML VIAL ONE (12:49)
[2017-12-08] MEDS ORDERED: PROPOFOL 10 MG/ML 20 ML VIAL IV ONE (12:49)
[2017-12-08] MEDS ORDERED: ROPIVACAINE 5 MG/ML 30 ML VIAL ONE (12:49)
[2017-12-08 14:39] VITALS: BP 128/74; PULSE 82
--- NOTE | 2017-12-15 06:18 | OP ---
OPERATIVE REPORT DATE OF PROCEDURE: 12/08/2017. PREOPERATIVE DIAGNOSIS: Kienbock's disease, right wrist. POSTOPERATIVE DIAGNOSIS: Kienbock's disease, right wrist. PROCEDURES: Proximal row carpectomy, right wrist. PROCEDURE: 47-year-old woman was taken operative suite after an axillary block was administered by the Department of Anesthesia in the preop holding area. This was supplemented with IV sedation. Her right arm was then prepped and draped in usual manner. It was elevated, exsanguinated and cuff was inflated to 250 mmHg. A transverse incision was made over the dorsal aspect of the right wrist. Skin was dissected and visualization was undertaken with 4.5 loupe magnification. The approach between the 2nd and 4th compartments was developed. The 3rd compartment extensor pollicis longus tendon was visualized and gently retracted out of harm's way. The longitudinal arthrotomy was made in the joint and this exposure was enlarged with a T-shaped capsulotomy. The proximal row was visualized and the scaphoid lunate and triquetrum were removed in piecemeal fashion. Care was taken to avoid injuring the head of the capitate which appeared to have healthy articular cartilage at this time, as did the lunate fossa. At the completion the procedure, the capitate fit securely into the lunate fossa. The wound was thoroughly irrigated. Tourniquet was released. Hemostasis was acquired with pressure and electrocautery. The capsule was allowed to fall into place. Skin was closed with 5-0 nylon suture. Soft bulky dressing with a supporting volar plaster splint was applied. The patient taken recovery room in satisfactory condition. MMODL / IJN: [id number] /
== END 2017-12-08 15:00 | disposition home or self-care (01) ==
LOC: OR 10:45
PROVIDERS: ATTEND Orthopaedic Surgery Hand Surgery
DX: M92.211 Osteochondrosis (juvenile) of carpal lunate [Kienbock], right hand (principal); Z72.0 Tobacco use; Z79.891 Long term (current) use of opiate analgesic
CPT/HCPCS: 81025; 25215; J2250; J3010; J2795; J2704; J0690

== ENCOUNTER 2017-12-28 08:39 | Emergency (ER) | payer OTHER ==
[2017-12-28 08:45] VITALS: BP 139/80; PULSE 93; RESP 18; TEMP 97
--- NOTE | 2017-12-28 08:52 | ED ---
General Adult HPI - General Chief complaint: Extremity Injury, Upper Stated complaint: right wrist pain post surgery Time Seen by Provider: 12/28/17 08:46 Source: patient, RN notes reviewed Mode of arrival: ambulatory Limitations: no limitations - History of Present Illness Initial comments: Patient is a 47-year-old female presenting to the emergency room status post right wrist surgery 2 weeks, with chief complaint of right wrist pain. States she had a difficult time sleeping last night due to pain. She states that she had 3 polyps removed 2 weeks ago. Patient states still has some numbness to the back of the right hand since surgery. She did have her follow-up. She states she was taking Ultram for pain strength last night with no relief. States pain is located to the right wrist denies any other dementia symptoms. Patient denies any recent fever, chills, shortness of breath, chest pain, back pain, abdominal pain, nausea or vomiting, headaches or visual changes, or any other complaints. - Related Data Home Medications Medication Instructions Recorded Confirmed traMADol HCL [Ultram] 100 mg PO Q6HR PRN 12/05/17 12/08/17 Previous Rx's Medication Instructions Recorded HYDROcodone/APAP 5-325MG [[place] 5] 1 each PO Q4-6H PRN #30 tab 12/08/17 Allergies Allergy/AdvReac Type Severity Reaction Status Date / Time No Known Allergies Allergy Verified 12/28/17 08:45 Review of Systems ROS Statement: Those systems with pertinent positive or pertinent negative responses have been documented in the HPI. ROS Other: All systems not noted in ROS Statement are negative. Past Medical History Past Medical History: Musculoskeletal Disorder, Seizure Disorder Additional Past Medical History / Comment(s): hx. Ovarian Cyst, back and neck pain, had one time seizure about 5 yrs ago-none since & unknown cause per pt. History of Any Multi-Drug Resistant Organisms: None Reported Past Surgical History: Tubal Ligation Additional Past Surgical History / Comment(s): cyst removed off bilateral wrists 2016, wrist Past Anesthesia/Blood Transfusion Reactions: No Reported Reaction Past Psychological History: No Psychological Hx Reported Smoking Status: Current every day smoker Past Alcohol Use History: None Reported Past Drug Use History: None Reported - Past Family History Mother Family Medical History: No Reported History General Exam - General Exam Comments Initial Comments: General: The patient is awake and alert, in no distress, and does not appear acutely ill. Neck: The neck is supple, there is no tenderness or JVD. Musculoskeletal: Surgical incisions are healing well there is no redness or surrounding erythema. Patient shows limited range of motion at the right wrist. Full range of motion of the right elbow, right hand. Cap refill less than 2 seconds. Sensations intact. Radial pulses plus Neurological: A&O x 3. CN II-XII intact, There are no obvious motor or sensory deficits. Coordination appears grossly intact. Speech is normal. Skin: Skin is warm and dry and no rashes or lesions are noted. Psychiatric: Normal mood and affect. Limitations: no limitations Course Vital Signs 12/28/17 08:43 Temperature 97.0 F L Pulse Rate 93 Respiratory 18 Rate Blood Pressure 139/80 O2 Sat by Pulse 97 Oximetry Medical Decision Making - Medical Decision Making Patient x-ray reviewed Shows 1. No acute fracture dislocation of the right wrist. 2. Partial surgical absence of the proximal carpal row. There is overlying soft tissue swelling and punctate high density foci within the dorsal subcutaneous tissue. These could relate to a vessel calcification, postsurgical material or debris. Patient did have recent surgery. Surgical incision is healing well-known sign of redness or inflammation. No sign of infection. This felt that this is postsurgical material. She is advised to follow-up with her surgeon in 2 days when the office opens. Patient does admit that she took her last Ultram last night. She be given starter pack Ultram here in the emergency room advised to follow-up. Disposition Clinical Impression: Right wrist pain Disposition: HOME SELF-CARE Condition: Good Instructions: Arthralgia (ED) Additional Instructions: Please follow-up with surgeon over the next 2 days as discussed. Please continue to ice elevate the affected area. Please return to emergency room for any other concerns. Is patient prescribed a controlled substance at d/c from ED?: No Referrals: None,Stated [Primary Care Provider] - 1-2 days Time of Disposition: 09:16
--- NOTE | 2017-12-28 09:04 | XR ---
EXAMINATION TYPE: XR wrist limited RT DATE OF EXAM: 12/28/2017 CLINICAL HISTORY: Right wrist pain after surgery TECHNIQUE: Frontal and lateral images of the right wrist are obtained. COMPARISON: None FINDINGS: There is no acute fracture/dislocation evident in the right wrist. There is partial absenc e of the scaphoid bone, absence of the lunate, and absence of the triquetrum. High density punctate m aterial is seen dorsally personally 3 mm from the skin surface. Diffuse soft tissue swelling is noted of the wrist, overall mild in degree. IMPRESSION: 1. No acute fracture or dislocation in the right wrist. 2. Partial surgical absence of the proximal carpal row. There is overlying soft tissue swelling and p unctate high density foci within the dorsal subcutaneous tissues. These could relate to vascular calc ifications, postsurgical material, or debris. Correlation with surgical records or short-term follow- up are recommended.
[2017-12-28] MEDS ORDERED: traMADol 50 MG STARTER PACK 3 TAB BTL PO STA (09:14)
== END 2017-12-28 09:22 | disposition home or self-care (01) ==
LOC: EC 08:39
DX: M25.531 Pain in right wrist (principal); R20.0 Anesthesia of skin; F17.200 Nicotine dependence, unspecified, uncomplicated; Z98.890 Other specified postprocedural states
CPT/HCPCS: 99283

== ENCOUNTER 2018-01-04 22:09 | Emergency (ER) | payer OTHER ==
[2018-01-04 22:13] VITALS: RESP 18
[2018-01-04] MEDS ORDERED: KETOROLAC 30 MG/ML 1 ML VIAL IVP STA (22:28)
--- NOTE | 2018-01-04 22:32 | ED ---
Abdominal Pain HPI - General Chief Complaint: Abdominal Pain Stated Complaint: abdominal pain Time Seen by Provider: 01/04/18 22:18 Source: patient Mode of arrival: ambulatory Limitations: no limitations - History of Present Illness Initial Comments: This patient is a 47-year-old woman with complaint of bilateral lower quadrant abdominal pain. She states that she has been having about 2 weeks of dull, left lower quadrant abdominal pain. Tonight at work she developed similar pain in the right lower quadrant. She states that this is identical to the pains she had associated with ovarian cysts. She describes the pain as being constantly dull with occasional sharp exacerbations. It is 6 out of 10. She has not noted any worsening or relieving factors. She has not had any associated symptoms. She does note that her last menstrual period was in October , but she did have a test about 3 weeks ago that was negative. MD Complaint: abdominal pain Onset/Timin -: week(s) Location: LLQ, RLQ Radiation: none Migration to: no migration Severity: moderate Severity scale (1-10): 6 Quality: sharp, dull Consistency: constant Improves With: nothing Worsens With: nothing Associated Symptoms: denies other symptoms - Related Data Previous Rx's Medication Instructions Recorded Ibuprofen [Motrin] 600 mg PO Q8HR PRN #20 tab 01/05/18 traMADol HCl [Ultram] 50 mg PO Q6H PRN #12 tab 01/05/18 Allergies Allergy/AdvReac Type Severity Reaction Status Date / Time No Known Allergies Allergy Verified 01/04/18 22:13 Review of Systems ROS Statement: Those systems with pertinent positive or pertinent negative responses have been documented in the HPI. ROS Other: All systems not noted in ROS Statement are negative. Constitutional: Denies: fever, chills Respiratory: Denies: cough, dyspnea Cardiovascular: Denies: chest pain, palpitations Gastrointestinal: Reports: abdominal pain. Denies: nausea, vomiting, diarrhea, constipation, melena, hematochezia Genitourinary: Reports: abnormal menses. Denies: dysuria, frequency, hematuria , discharge Musculoskeletal: Denies: back pain Skin: Denies: rash Neurological: Denies: headache, weakness, numbness Past Medical History Past Medical History: Musculoskeletal Disorder, Seizure Disorder Additional Past Medical History / Comment(s): hx. Ovarian Cyst, back and neck pain, had one time seizure about 5 yrs ago-none since & unknown cause per pt. History of Any Multi-Drug Resistant Organisms: None Reported Past Surgical History: Tubal Ligation Additional Past Surgical History / Comment(s): cyst removed off bilateral wrists 2016, wrist Past Anesthesia/Blood Transfusion Reactions: No Reported Reaction Past Psychological History: No Psychological Hx Reported Smoking Status: Current every day smoker Past Alcohol Use History: None Reported Past Drug Use History: None Reported - Past Family History Mother Family Medical History: No Reported History General Exam Limitations: no limitations General appearance: alert, in no apparent distress Head exam: Present: atraumatic, normocephalic Eye exam: Present: normal appearance. Absent: scleral icterus, conjunctival injection Respiratory exam: Present: normal lung sounds bilaterally. Absent: respiratory distress, wheezes, rales, rhonchi, stridor Cardiovascular Exam: Present: regular rate (Heart rate is 92 at my exam), normal rhythm, normal heart sounds. Absent: systolic murmur, diastolic murmur, rubs, gallop GI/Abdominal exam: Present: soft, normal bowel sounds. Absent: distended, tenderness, guarding, rebound, rigid, mass, bruit, pulsatile mass, hernia Extremities exam: Present: normal inspection, normal capillary refill. Absent: pedal edema, calf tenderness Back exam: Present: normal inspection. Absent: CVA tenderness (R), CVA tenderness (L) Neurological exam: Present: alert Skin exam: Present: warm, dry, intact, normal color. Absent: rash Course Vital Signs 01/04/18 01/04/18 01/05/18 22:11 23:11 00:27 Temperature 97.6 F 97.3 F L Pulse Rate 108 H 90 85 Respiratory 18 18 18 Rate Blood Pressure 153/78 142/81 135/85 O2 Sat by Pulse 98 97 96 Oximetry Medical Decision Making - Lab Data Result diagrams: 01/04/18 22:39 01/04/18 22:39 Lab Results 01/04/18 01/04/18 01/04/18 Range/Units 22:39 22:39 22:39 WBC 11.6 H (3.8-10.6) k/uL RBC 4.91 (3.80-5.40) m/uL Hgb 14.7 (11.4-16.0) gm/dL Hct 44.8 (34.0-46.0) % MCV 91.3 (80.0-100.0) fL MCH 29.9 (25.0-35.0) pg MCHC 32.7 (31.0-37.0) g/dL RDW 13.1 (11.5-15.5) % Plt Count 383 (150-450) k/uL Neutrophils % 57 % Lymphocytes % 32 % Monocytes % 7 % Eosinophils % 2 % Basophils % 0 % Neutrophils # 6.6 (1.3-7.7) k/uL Lymphocytes # 3.7 (1.0-4.8) k/uL Monocytes # 0.8 (0-1.0) k/uL Eosinophils # 0.3 (0-0.7) k/uL Basophils # 0.0 (0-0.2) k/uL Sodium 142 (137-145) mmol/L Potassium 4.3 (3.5-5.1) mmol/L Chloride 103 (98-107) mmol/L Carbon Dioxide 25 (22-30) mmol/L Anion Gap 14 mmol/L BUN 19 H (7-17) mg/dL Creatinine 0.70 (0.52-1.04) mg/dL Est GFR (CKD-EPI)AfAm >90 (>60 ml/min/1.73 sqM) Est GFR (CKD-EPI)NonAf >90 (>60 ml/min/1.73 sqM) Glucose 74 (74-99) mg/dL Calcium 10.1 (8.4-10.2) mg/dL Total Bilirubin 0.2 (0.2-1.3) mg/dL AST 28 (14-36) U/L ALT 27 (9-52) U/L Alkaline Phosphatase 97 (38-126) U/L Total Protein 7.5 (6.3-8.2) g/dL Albumin 4.5 (3.5-5.0) g/dL Amylase 51 (30-110) U/L Lipase 118 (23-300) U/L Urine Color Yellow Urine Appearance Cloudy H (Clear) Urine pH 6.5 (5.0-8.0) Ur Specific [place] 1.018 (1.001-1.035) Urine Protein Negative (Negative) Urine Glucose (UA) Negative (Negative) Urine Ketones Negative (Negative) Urine Blood Moderate H (Negative) Urine Nitrite Negative (Negative) Urine Bilirubin Negative (Negative) Urine Urobilinogen 2.0 (<2.0) mg/dL Ur Leukocyte Esterase Trace H (Negative) Urine RBC 60 H (0-5) /hpf Urine WBC 2 (0-5) /hpf Ur Squamous Epith Cells 2 (0-4) /hpf Urine Bacteria Rare H (None) /hpf Urine Mucus Rare H (None) /hpf Urine HCG, Qual (Not Detectd) 01/04/18 Range/Units 22:39 WBC (3.8-10.6) k/uL RBC (3.80-5.40) m/uL Hgb (11.4-16.0) gm/dL Hct (34.0-46.0) % MCV (80.0-100.0) fL MCH (25.0-35.0) pg MCHC (31.0-37.0) g/dL RDW (11.5-15.5) % Plt Count (150-450) k/uL Neutrophils % % Lymphocytes % % Monocytes % % Eosinophils % % Basophils % % Neutrophils # (1.3-7.7) k/uL Lymphocytes # (1.0-4.8) k/uL Monocytes # (0-1.0) k/uL Eosinophils # (0-0.7) k/uL Basophils # (0-0.2) k/uL Sodium (137-145) mmol/L Potassium (3.5-5.1) mmol/L Chloride (98-107) mmol/L Carbon Dioxide (22-30) mmol/L Anion Gap mmol/L BUN (7-17) mg/dL Creatinine (0.52-1.04) mg/dL Est GFR (CKD-EPI)AfAm (>60 ml/min/1.73 sqM) Est GFR (CKD-EPI)NonAf (>60 ml/min/1.73 sqM) Glucose (74-99) mg/dL Calcium (8.4-10.2) mg/dL Total Bilirubin (0.2-1.3) mg/dL AST (14-36) U/L ALT (9-52) U/L Alkaline Phosphatase (38-126) U/L Total Protein (6.3-8.2) g/dL Albumin (3.5-5.0) g/dL Amylase (30-110) U/L Lipase (23-300) U/L Urine Color Urine Appearance (Clear) Urine pH (5.0-8.0) Ur Specific [place] (1.001-1.035) Urine Protein (Negative) Urine Glucose (UA) (Negative) Urine Ketones (Negative) Urine Blood (Negative) Urine Nitrite (Negative) Urine Bilirubin (Negative) Urine Urobilinogen (<2.0) mg/dL Ur Leukocyte Esterase (Negative) Urine RBC (0-5) /hpf Urine WBC (0-5) /hpf Ur Squamous Epith Cells (0-4) /hpf Urine Bacteria (None) /hpf Urine Mucus (None) /hpf Urine HCG, Qual Not Detected (Not Detectd) Disposition Clinical Impression: Abdominal pain, Hematuria, Ovarian cyst Disposition: HOME SELF-CARE Condition: Good Instructions: Abdominal Pain (ED) Prescriptions: Ibuprofen [Motrin] 600 mg PO Q8HR PRN #20 tab PRN Reason: Pain traMADol HCl [Ultram] 50 mg PO Q6H PRN #12 tab PRN Reason: Pain Is patient prescribed a controlled substance at d/c from ED?: Yes When asked, does pt state using other controlled substances?: No If prescribed controlled substance>3 days was MAPS reviewed?: Prescribed <3 Days If opioid is for acute pain is fill amount 7 days or less?: Yes If Rx opioid, was Start Talking consent form obtained?: Yes Referrals: None,Stated [Primary Care Provider] - 1-2 days Eugene Vieira, [Doctor of Osteopathic Medicine] - 1-2 days
[2018-01-04 22:59] LABS: Basophils % (A) 0 %; Eosinophils # (A) 0.3 k/uL (0-0.7); Eosinophils % (A) 2 %; HCT 44.8 % (34.0-46.0); HGB 14.7 gm/dL (11.4-16.0); Lymphocytes # (A) 3.7 k/uL (1.0-4.8); Lymphocytes % (A) 32 %; MCH 29.9 pg (25.0-35.0); MCHC 32.7 g/dL (31.0-37.0); MCV 91.3 fL (80.0-100.0); Mean Platelet Volume 6.8; Monocytes # (A) 0.8 k/uL (0-1.0); Monocytes % (A) 7 %; Neutrophils # (A) 6.6 k/uL (1.3-7.7); Neutrophils % (A) 57 %; Platelet Count 383 k/uL (150-450); RBC 4.91 m/uL (3.80-5.40); RDW 13.1 % (11.5-15.5); WBC 11.6 k/uL (3.8-10.6)
[2018-01-04 23:02] LABS: Appearance,Urine Cloudy (Clear); Bacteria,Urine Rare /hpf; Bilirubin,Urine Negative (Negative); Blood,Urine Moderate (Negative); Color,Urine Yellow; Glucose,Urine (UA) Negative (Negative); Ketones,Urine Negative (Negative); Leukocyte Esterase,Urine Trace (Negative); Mucus,Urine Rare /hpf; Nitrite,Urine Negative (Negative); PH, Urine 6.5 (5.0-8.0); Protein,Urine Negative (Negative); RBC,Urine 60 /hpf (0-5); Specific Gravity,Urine 1.018 (1.001-1.035); Squamous Epithelial Cell,Urine 2 /hpf (0-4); WBC,Urine 2 /hpf (0-5)
[2018-01-04 23:11] LABS: ALT 27 U/L (9-52); AST 28 U/L (14-36); Albumin 4.5 g/dL (3.5-5.0); Alkaline Phosphatase 97 U/L (38-126); Amylase 51 U/L (30-110); Anion Gap 14 mmol/L; Blood Urea Nitrogen 19 mg/dL (7-17); Calcium 10.1 mg/dL (8.4-10.2); Carbon Dioxide 25 mmol/L (22-30); Chloride 103 mmol/L (98-107); Glucose 74 mg/dL (74-99); Lipase 118 U/L (23-300); Potassium 4.3 mmol/L (3.5-5.1); Sodium 142 mmol/L (137-145); Total Bilirubin 0.2 mg/dL (0.2-1.3); Total Protein 7.5 g/dL (6.3-8.2)
[2018-01-04 23:12] VITALS: TEMP 97.3
--- NOTE | 2018-01-05 00:20 | CT ---
EXAMINATION TYPE: CT abdomen pelvis wo con DATE OF EXAM: 01/04/2018 COMPARISON: 12/12/2016 HISTORY: left sided pelvic pain CT DLP: 721.40 mGycm Automated exposure control for dose reduction was used. TECHNIQUE: Helical acquisition of images was performed from the lung bases through the pelvis. FINDINGS: Lung bases are clear. There is no pleural effusion. There is no pericardial effusion. Liver spleen pancreas gallbladder appear normal. Bile ducts are not dilated. There is no adrenal mass. Kidneys show normal size and contour. There is no hydronephrosis. Ureters a re not dilated. There is no retroperitoneal adenopathy. There is no ascites. Appendix measures 7.5 mm . There is no ascites. Uterus is anteverted. I see no bony destructive process. IMPRESSION: NEGATIVE CT SCAN OF THE ABDOMEN AND PELVIS. NO EVIDENCE OF RENAL STONE OR OBSTRUCTION.
[2018-01-05 00:28] VITALS: BP 135/85; PULSE 85
== END 2018-01-05 00:58 | disposition home or self-care (01) ==
LOC: EC 22:09
DX: N83.209 Unspecified ovarian cyst, unspecified side (principal); R31.9 Hematuria, unspecified; F17.200 Nicotine dependence, unspecified, uncomplicated; Z98.51 Tubal ligation status
CPT/HCPCS: 36415; 80053; 82150; 83690; 85025; 81001; 81025; 74176; 99284; 96374; J1885

== ENCOUNTER 2018-05-25 10:54 | Day surgery (SDC) | payer OTHER ==
[2018-05-19 08:16] VITALS: BMI 30.7
[~2018-05-25 10:54] MED LIST changes: +DEXAMETHASONE SOD PHOSPHATE 10 MG/ML 1 ML VIAL IV ONE; +MIDAZOLAM 2 MG/2 ML VIAL IV PRN; -MORPHINE SULFATE 2 MG/ML SYRINGE IV PRN; +ONDANSETRON 4 MG/2 ML VIAL IVP ONE; -ONDANSETRON ODT 4 MG TAB PO ONE; +fentaNYL (PF) 50 MCG/ML 2 ML AMP IV PRN
[2018-05-25] MEDS ORDERED: BUPIVACAINE (PF) 0.25% 30 ML VIAL SQ ONE (12:18)
[2018-05-25] MEDS ORDERED: LIDOCAINE 1% INJ 10MG/ML (20 ML MDV) ONE (12:40)
[2018-05-25] MEDS ORDERED: MIDAZOLAM 2 MG/2 ML VIAL ONE (12:40)
[2018-05-25] MEDS ORDERED: fentaNYL (PF) 50 MCG/ML 2 ML AMP ONE (12:40)
[2018-05-25] MEDS ORDERED: ROPIVACAINE 5 MG/ML 30 ML VIAL ONE (12:40)
[2018-05-25] MEDS ORDERED: PROPOFOL 10 MG/ML 20 ML VIAL IV ONE (12:40)
[2018-05-25] MEDS ORDERED: ceFAZolin 1,000 MG in SODIUM CHLORIDE 0.9% 1,000 ML IRRIGATION ONE (12:52)
[2018-05-25 13:27] VITALS: RESP 16; TEMP 97.5
[2018-05-25 14:21] VITALS: BP 119/80; PULSE 81
--- NOTE | 2018-05-27 09:05 | P.ONQ ---
Anesthesiology Proc Note - PNB - Peripheral Nerve Block Performed Right Infraclavicular Single Time Out Performed: Yes Indication: Acute Post-Operative Pain, Requested by physician Sedation Type: Sedate with meaningful contact maintained Preparation: Sterile Prep Position: Supine Needle Size: 50mm (2") Needle Gauge: 21 Technique: Ultrasound Injectate: 0.5% Ropivacaine (see comment for volume) (ropi .5% 20cc) Blood Aspirated: No Pain Paresthesia on Injection Noted: No Resistance on Injection: Normal Events: Uneventful and Well Tolerated
--- NOTE | 2018-06-22 20:27 | OP ---
OPERATIVE REPORT DATE OF SURGERY: 05/25/2018 PREOPERATIVE DIAGNOSIS: Chronic lateral epicondylitis, right elbow. FINAL DIAGNOSIS: Chronic lateral epicondylitis, right elbow. PROCEDURE: Lateral epicondylar release, right elbow. DESCRIPTION OF THE PROCEDURE: The patient was taken to the operative suite, given IV sedation, and the area of the incision was anesthetized using a combination of Xylocaine and Marcaine, both without epinephrine. Arm was prepped and draped in the usual manner. It was then elevated, exsanguinated and cuff was inflated to 250 mmHg. A longitudinal lateral incision was made over the right lateral epicondyle. Dissection was taken through skin and subcutaneous tissue. The common extensor origin was identified and incised longitudinally. Dissection was taken down to the periosteum of the epicondyle and subperiosteal dissection was performed. The area of inflammatory tissue was debrided with a rongeur. Care was taken to avoid releasing the lateral collateral ligament. An osteotome was used to remove the superficial portion of bone. A rongeur was then used to smooth off the area. The wound was thoroughly irrigated and the capsule and retinaculum was closed with 3-0 PDS suture. The tourniquet was then released. Hemostasis was noted to be satisfactory. The skin was closed with running 5-0 nylon suture. Soft bulky dressing was applied and the patient was taken to the recovery room in satisfactory condition. MMODL / IJN: [id number] /
== END 2018-05-25 15:00 | disposition home or self-care (01) ==
LOC: OR 10:54
PROVIDERS: ATTEND Orthopaedic Surgery Hand Surgery
DX: M77.11 Lateral epicondylitis, right elbow (principal); M77.12 Lateral epicondylitis, left elbow; F17.200 Nicotine dependence, unspecified, uncomplicated
CPT/HCPCS: 81025; 24358; J2250; J1100; J2405; J2001; J3010; J2795; J2704; J0690

== ENCOUNTER 2018-06-14 12:42 | Emergency (ER) | payer OTHER ==
[2018-06-14 12:47] VITALS: RESP 18
[2018-06-14] MEDS ORDERED: SODIUM CHLORIDE 0.9% 1,000 ML IV STA (13:17)
--- NOTE | 2018-06-14 13:17 | ED ---
General Adult HPI - General Chief complaint: Back Pain/Injury Stated complaint: Back Pain Time Seen by Provider: 06/14/18 12:50 Source: patient, RN notes reviewed Mode of arrival: ambulatory Limitations: no limitations - History of Present Illness Initial comments: Patient is a 47-year-old female presenting to the emergency room today with a chief complaint of right mid back pain over the last month. She does admit that she's noticed that when she is in a hot shower out of the pain is better. She states it is worse with certain movements. She denies any specific injury or trauma. She states that at times she has felt pain when she takes deep breath. Patient denies any other complaints or symptoms. Patient denies any recent fever, chills, shortness of breath, chest pain, abdominal pain, nausea or vomiting, numbness or tingling, dysuria or hematuria, constipation or diarrhea, headaches or visual changes, or any other complaints. - Related Data Previous Rx's Medication Instructions Recorded Cyclobenzaprine [Flexeril] 10 mg PO TID #20 tab 06/14/18 Ibuprofen [Motrin] 600 mg PO Q6HR PRN #40 day 06/14/18 Lidocaine [Lidoderm 5% Patch] 1 patch TRANSDERM DAILY #7 patch 06/14/18 Allergies Allergy/AdvReac Type Severity Reaction Status Date / Time No Known Allergies Allergy Verified 06/14/18 12:47 Review of Systems ROS Statement: Those systems with pertinent positive or pertinent negative responses have been documented in the HPI. ROS Other: All systems not noted in ROS Statement are negative. Past Medical History Past Medical History: Musculoskeletal Disorder, Seizure Disorder Additional Past Medical History / Comment(s): hx. Ovarian Cyst, back and neck pain, had one time seizure about 5 yrs ago-none since & unknown cause per pt. History of Any Multi-Drug Resistant Organisms: None Reported Past Surgical History: Tubal Ligation Additional Past Surgical History / Comment(s): cyst removed off bilateral wrists 2016, rt wrist sx Past Anesthesia/Blood Transfusion Reactions: No Reported Reaction Past Psychological History: No Psychological Hx Reported Smoking Status: Current every day smoker - Past Family History Mother Family Medical History: No Reported History General Exam - General Exam Comments Initial Comments: General: The patient is awake and alert, in no distress, and does not appear acutely ill. Eye: Pupils are equal, round and reactive to light. Extra-ocular movements are intact. No nystagmus. There is normal conjunctiva bilaterally. No signs of icterus. Ears, nose, mouth and throat: There are moist mucous membranes and no oral lesions. Neck: The neck is supple, there is no tenderness or JVD. Cardiovascular: There is a regular rate and rhythm. No murmur, rub or gallop is appreciated. Respiratory: Lungs are clear to auscultation, respirations are non-labored, breath sounds are equal. No wheezes, stridor, rales, or rhonchi. Musculoskeletal: Normal ROM. Tender to palpation right mid back to the right of the thoracic of spine. Sensation intact. Strength 5/5. Pulses equal bilaterally 2+. Neurological: A&O x 3. CN II-XII intact, There are no obvious motor or sensory deficits. Coordination appears grossly intact. Speech is normal. Skin: Skin is warm and dry and no rashes or lesions are noted. Psychiatric: Cooperative, appropriate mood & affect, normal judgment. Limitations: no limitations Course Vital Signs 06/14/18 06/14/18 06/14/18 12:45 14:00 14:30 Temperature 97.8 F Pulse Rate 114 H 80 80 Respiratory 18 Rate Blood Pressure 125/78 138/89 128/86 O2 Sat by Pulse 98 Oximetry EKG Findings - EKG Comments: EKG Findings:: EKG performed at 1343: Shows normal sinus rhythm at 80 bpm. TX interval 140. QRS 70. QT/QTC 374/431. No congestion Medical Decision Making - Medical Decision Making Patient's labs been reviewed does show 12,000 white count. Urinalysis did have blood and 6 white cells Culture pending. Patient presenting to the emergency room for right-sided upper back pain has been ongoing for the last month. Does admit that heat to the area seems to help it. Does admit that it's worse with movements. D-dimer was mildly elevated. A CT of the chest was performed and negative for any evidence of PE or any other acute abnormalities. Results were discussed with the patient. Patient does admit to improvement of her pain medication here in emergency room. Will be given Lidoderm patch along with muscle laxer and anti-inflammatories. She is advised follow-up family doctor over the next 2 days. - Lab Data Result diagrams: 06/14/18 13:27 06/14/18 13:27 Lab Results 06/14/18 06/14/18 06/14/18 Range/Units 13:27 13:27 13:27 WBC 12.2 H (3.8-10.6) k/uL RBC 4.63 (3.80-5.40) m/uL Hgb 14.1 (11.4-16.0) gm/dL Hct 43.3 (34.0-46.0) % MCV 93.6 (80.0-100.0) fL MCH 30.5 (25.0-35.0) pg MCHC 32.6 (31.0-37.0) g/dL RDW 13.2 (11.5-15.5) % Plt Count 389 (150-450) k/uL Neutrophils % 77 % Lymphocytes % 16 % Monocytes % 4 % Eosinophils % 2 % Basophils % 0 % Neutrophils # 9.4 H (1.3-7.7) k/uL Lymphocytes # 2.0 (1.0-4.8) k/uL Monocytes # 0.5 (0-1.0) k/uL Eosinophils # 0.2 (0-0.7) k/uL Basophils # 0.0 (0-0.2) k/uL PT (9.0-12.0) sec INR (<1.2) APTT (22.0-30.0) sec D-Dimer (<0.60) mg/L FEU Sodium 140 (137-145) mmol/L Potassium 4.4 (3.5-5.1) mmol/L Chloride 108 H (98-107) mmol/L Carbon Dioxide 24 (22-30) mmol/L Anion Gap 8 mmol/L BUN 12 (7-17) mg/dL Creatinine 0.65 (0.52-1.04) mg/dL Est GFR (CKD-EPI)AfAm >90 (>60 ml/min/1.73 sqM) Est GFR (CKD-EPI)NonAf >90 (>60 ml/min/1.73 sqM) Glucose 92 (74-99) mg/dL Calcium 10.1 (8.4-10.2) mg/dL Total Bilirubin 0.4 (0.2-1.3) mg/dL AST 24 (14-36) U/L ALT 33 (9-52) U/L Alkaline Phosphatase 122 (38-126) U/L Total Creatine Kinase 134 (30-135) U/L CK-MB (CK-2) 0.6 (0.0-2.4) ng/mL CK-MB (CK-2) Rel Index 0.4 Troponin I <0.012 (0.000-0.034) ng/mL Total Protein 7.7 (6.3-8.2) g/dL Albumin 4.3 (3.5-5.0) g/dL Urine Color Urine Appearance (Clear) Urine pH (5.0-8.0) Ur Specific [place] (1.001-1.035) Urine Protein (Negative) Urine Glucose (UA) (Negative) Urine Ketones (Negative) Urine Blood (Negative) Urine Nitrite (Negative) Urine Bilirubin (Negative) Urine Urobilinogen (<2.0) mg/dL Ur Leukocyte Esterase (Negative) Urine RBC (0-5) /hpf Urine WBC (0-5) /hpf Ur Squamous Epith Cells (0-4) /hpf Urine Mucus (None) /hpf Urine HCG, Qual (Not Detectd) 06/14/18 06/14/18 06/14/18 Range/Units 13:27 13:55 13:55 WBC (3.8-10.6) k/uL RBC (3.80-5.40) m/uL Hgb (11.4-16.0) gm/dL Hct (34.0-46.0) % MCV (80.0-100.0) fL MCH (25.0-35.0) pg MCHC (31.0-37.0) g/dL RDW (11.5-15.5) % Plt Count (150-450) k/uL Neutrophils % % Lymphocytes % % Monocytes % % Eosinophils % % Basophils % % Neutrophils # (1.3-7.7) k/uL Lymphocytes # (1.0-4.8) k/uL Monocytes # (0-1.0) k/uL Eosinophils # (0-0.7) k/uL Basophils # (0-0.2) k/uL PT 9.6 (9.0-12.0) sec INR 1.0 (<1.2) APTT 24.7 (22.0-30.0) sec D-Dimer 0.59 (<0.60) mg/L FEU Sodium (137-145) mmol/L Potassium (3.5-5.1) mmol/L Chloride (98-107) mmol/L Carbon Dioxide (22-30) mmol/L Anion Gap mmol/L BUN (7-17) mg/dL Creatinine (0.52-1.04) mg/dL Est GFR (CKD-EPI)AfAm (>60 ml/min/1.73 sqM) Est GFR (CKD-EPI)NonAf (>60 ml/min/1.73 sqM) Glucose (74-99) mg/dL Calcium (8.4-10.2) mg/dL Total Bilirubin (0.2-1.3) mg/dL AST (14-36) U/L ALT (9-52) U/L Alkaline Phosphatase (38-126) U/L Total Creatine Kinase (30-135) U/L CK-MB (CK-2) (0.0-2.4) ng/mL CK-MB (CK-2) Rel Index Troponin I (0.000-0.034) ng/mL Total Protein (6.3-8.2) g/dL Albumin (3.5-5.0) g/dL Urine Color Yellow Urine Appearance Cloudy H (Clear) Urine pH 7.5 (5.0-8.0) Ur Specific [place] 1.029 (1.001-1.035) Urine Protein 1+ H (Negative) Urine Glucose (UA) Negative (Negative) Urine Ketones Trace H (Negative) Urine Blood Small H (Negative) Urine Nitrite Negative (Negative) Urine Bilirubin Negative (Negative) Urine Urobilinogen 2.0 (<2.0) mg/dL Ur Leukocyte Esterase Small H (Negative) Urine RBC 60 H (0-5) /hpf Urine WBC 6 H (0-5) /hpf Ur Squamous Epith Cells 22 H (0-4) /hpf Urine Mucus Few H (None) /hpf Urine HCG, Qual Not Detected (Not Detectd) Disposition Clinical Impression: Back pain Disposition: HOME SELF-CARE Condition: Good Instructions: Back Pain (ED) Additional Instructions: Please use medication as discussed. Please follow-up with family doctor in the next 2 days. Please return to emergency room if the symptoms increase or worsen or for any other concerns. Prescriptions: Cyclobenzaprine [Flexeril] 10 mg PO TID #20 tab Ibuprofen [Motrin] 600 mg PO Q6HR PRN #40 day PRN Reason: Pain Lidocaine [Lidoderm 5% Patch] 1 patch TRANSDERM DAILY #7 patch Is patient prescribed a controlled substance at d/c from ED?: No Referrals: None,Stated [Primary Care Provider] - 1-2 days Whitley Hopkins MD [STAFF PHYSICIAN] - 1-2 days Time of Disposition: 16:04
[2018-06-14] MEDS ORDERED: KETOROLAC 30 MG/ML 1 ML VIAL IVP STA (13:18)
[2018-06-14 13:54] LABS: Basophils % (A) 0 %; Eosinophils # (A) 0.2 k/uL (0-0.7); Eosinophils % (A) 2 %; HCT 43.3 % (34.0-46.0); HGB 14.1 gm/dL (11.4-16.0); Lymphocytes % (A) 16 %; MCH 30.5 pg (25.0-35.0); MCHC 32.6 g/dL (31.0-37.0); MCV 93.6 fL (80.0-100.0); Mean Platelet Volume 6.9; Monocytes # (A) 0.5 k/uL (0-1.0); Monocytes % (A) 4 %; Neutrophils # (A) 9.4 k/uL (1.3-7.7); Neutrophils % (A) 77 %; Platelet Count 389 k/uL (150-450); RBC 4.63 m/uL (3.80-5.40); RDW 13.2 % (11.5-15.5); WBC 12.2 k/uL (3.8-10.6)
[2018-06-14 13:56] LABS: ALT 33 U/L (9-52); AST 24 U/L (14-36); Albumin 4.3 g/dL (3.5-5.0); Alkaline Phosphatase 122 U/L (38-126); Anion Gap 8 mmol/L; Blood Urea Nitrogen 12 mg/dL (7-17); Calcium 10.1 mg/dL (8.4-10.2); Carbon Dioxide 24 mmol/L (22-30); Chloride 108 mmol/L (98-107); Glucose 92 mg/dL (74-99); Potassium 4.4 mmol/L (3.5-5.1); Sodium 140 mmol/L (137-145); Total Bilirubin 0.4 mg/dL (0.2-1.3); Total Protein 7.7 g/dL (6.3-8.2)
[2018-06-14 14:04] LABS: D-Dimer 0.59 mg/L FEU (<0.60); Partial Thromboplastin Time 24.7 sec (22.0-30.0); Prothrombin Time 9.6 sec (9.0-12.0)
[2018-06-14 14:09] LABS: Creatine Kinase 134 U/L (30-135)
[2018-06-14 14:13] LABS: Appearance,Urine Cloudy (Clear); Bilirubin,Urine Negative (Negative); Blood,Urine Small (Negative); Color,Urine Yellow; Glucose,Urine (UA) Negative (Negative); Ketones,Urine Trace (Negative); Leukocyte Esterase,Urine Small (Negative); Mucus,Urine Few /hpf; Nitrite,Urine Negative (Negative); PH, Urine 7.5 (5.0-8.0); Protein,Urine 1+ (Negative); RBC,Urine 60 /hpf (0-5); Specific Gravity,Urine 1.029 (1.001-1.035); Squamous Epithelial Cell,Urine 22 /hpf (0-4); WBC,Urine 6 /hpf (0-5)
[2018-06-14 14:22] LABS: Creatine Kinase MB 0.6 ng/mL (0.0-2.4); Troponin I <0.012 ng/mL (0.000-0.034)
--- NOTE | 2018-06-14 14:26 | XR ---
EXAMINATION TYPE: XR chest 2V DATE OF EXAM: 06/14/2018 COMPARISON: 01/09/2017 HISTORY: Short of breath chest pain TECHNIQUE: Frontal and lateral views of the chest are obtained. FINDINGS: Heart and mediastinum are normal. Lungs are clear. Diaphragm is normal. There are chest le ads. Bony thorax appears intact. Pulmonary vascularity is normal. IMPRESSION: Normal chest. No change.
[2018-06-14] MEDS ORDERED: MORPHINE SULFATE 4 MG/ML SYRINGE IV STA (14:39)
--- NOTE | 2018-06-14 15:41 | CT ---
EXAMINATION TYPE: CT angio chest DATE OF EXAM: 06/14/2018 3:14 PM COMPARISON: None HISTORY: Back pain x2 days. CT DLP: 241.5 mGycm Automated exposure control for dose reduction was used. CONTRAST: CTA scan of the thorax is performed with IV Contrast, patient injected with 70ml mL of Isovue 370, pu lmonary embolism protocol. There are 3-D post processed images.. FINDINGS: Heart size is normal. There is no pericardial effusion. There is no pleural effusion. There is no med iastinal adenopathy. There are no hilar masses. There are no filling defects in the pulmonary arteries. The bony thorax is intact. Lungs are clear of consolidation. There is minimal subsegmental atelectasis at the lung bases. IMPRESSION: NO EVIDENCE OF PULMONARY EMBOLISM. NEGATIVE EXAM.
[2018-06-14] MEDS ORDERED: LIDOCAINE 5% PATCH TOPICAL STA (15:59)
[2018-06-14 16:32] VITALS: BP 141/82; PULSE 75; TEMP 97
== END 2018-06-14 16:31 | disposition home or self-care (01) ==
LOC: EC 12:42
DX: M54.9 Dorsalgia, unspecified (principal); R31.9 Hematuria, unspecified; R82.998 Other abnormal findings in urine; R79.1 Abnormal coagulation profile; F17.200 Nicotine dependence, unspecified, uncomplicated
CPT/HCPCS: 36415; 93005; 85379; 80053; 82550; 82553; 84484; 85025; 85610; 85730; 81001; 81025; 87086; 71046; 71275; 99284; 96374; 96375; 96361; J2270; J1885; Q9967

== ENCOUNTER 2019-01-05 05:57 | Day surgery (SDC) | payer OTHER ==
[2018-12-31 14:34] VITALS: BMI 30.7
[~2019-01-05 05:57] MED LIST changes: +HYDROmorphone 0.5 MG/0.5 ML SYRINGE IVP PRN; -LIDOCAINE 1% 20 ML VIAL (10MG/ML) FOR IV START INTRADERMA PRN; +Pre Op ABX Message 1 EACH MISC MISCELLANE ONE; +SCOPOLAMINE 1.5MG/72HR PATCH TRANSDERM ONE; -ceFAZolin IN SWFI 2 GM/20 ML SYRINGE IVP ONE; -fentaNYL (PF) 50 MCG/ML 2 ML AMP IV PRN
[2019-01-05 07:16] VITALS: RESP 16; TEMP 97.2
[2019-01-05] MEDS ORDERED: LIDOCAINE 1% 20 ML VIAL (10MG/ML) FOR IV START SQ ONE (07:22)
[2019-01-05] MEDS ORDERED: fentaNYL (PF) 50 MCG/ML 2 ML AMP ONE (07:57)
[2019-01-05] MEDS ORDERED: PROPOFOL 10 MG/ML 20 ML VIAL IV ONE (07:57)
[2019-01-05] MEDS ORDERED: MIDAZOLAM 2 MG/2 ML VIAL ONE (07:57)
[2019-01-05] MEDS ORDERED: BUPIVACAINE (PF) 0.5% 30 ML VIAL SQ ONE (08:13)
[2019-01-05] MEDS ORDERED: LIDOCAINE 2% INJ 20 MG/ML SQ ONE (08:14)
[2019-01-05 09:12] VITALS: BP 137/83; PULSE 88
--- NOTE | 2019-01-05 23:02 | OP ---
OPERATIVE REPORT DATE OF SERVICE: 01/05/2019. PREOPERATIVE DIAGNOSIS: Chronic lateral epicondylitis, left elbow. POSTOPERATIVE DIAGNOSIS: Chronic lateral epicondylitis, left elbow. PROCEDURE: Lateral epicondylar release, left elbow. GROSS PATHOLOGY: No definite pinpoint area of constriction could be identified under direct vision, intraoperatively. At the completion of the procedure, the medial collateral ligament was intact, and the nerve was quire free, without signs of impingement, with a full elbow range of motion. PROCEDURE: The patient is taken to the Operative Suite, after an axillary block was performed by the Department of Anesthesia, with good results. The patient's left arm is prepped and draped in the usual manner. It was then elevated, exsanguinated, and cuff was inflated to 250 mm of mercury. A longitudinal incision was made over the medial aspect of his left elbow. Dissection was taken through the skin and subcutaneous tissue, in a blunt manner, to preserve sensory nerves crossing the incision line. Dissection was then taken down to the flexor pronator origin. The ulnar nerve was identified behind the medial epicondyle and dissected both proximally and distally, for a distance of 6-10 cm in each direction. In this way, the cubital tunnel was released. Care was taken to avoid motor branches of the ulnar nerve into the flexor pronator muscles. At this point, the ulnar nerve was retracted gently away with the vessel loop, but its soft tissue attachments in general were left intact, to preserve its blood supply. A longitudinal incision was made through the flexor pronator origin and subperiosteal dissection of the medial epicondyle was performed. An osteotomy of the medial epicondyle was then accomplished, with an osteotome and a mallet, and a rongeur was used to smooth the surfaces. The flexor pronator origin and periosteum were then closed with a running 3-0 PDS suture. The elbow was put through a full range of motion, and the ulnar nerve was noted to be without any signs of impingement. In addition, with the elbow in flexion and full extension, the medial collateral ligamentous complex was tested and noted to be satisfactorily stable. Tourniquet was then released. Hemostasis was acquired with pressure and electrocautery. The wound was irrigated, as it had been throughout the procedure. A subcuticular 4-0 Vicryl closure was performed, followed by skin clips. A soft bulky dressing was then applied, followed by a posterior splint, with the elbow in 90 degrees of flexion. The patient was then taken to the Recovery Room in satisfactory condition. LISA / REN: [id number] /
== END 2019-01-05 09:23 | disposition home or self-care (01) ==
LOC: OR 05:57
PROVIDERS: ATTEND Orthopaedic Surgery Hand Surgery
DX: M77.12 Lateral epicondylitis, left elbow (principal); Z79.891 Long term (current) use of opiate analgesic; Z98.51 Tubal ligation status; M50.30 Other cervical disc degeneration, unspecified cervical region; F17.210 Nicotine dependence, cigarettes, uncomplicated
CPT/HCPCS: 81025; 24358; J2001; J2250; J1100; J2405; J3010; J2704

== ENCOUNTER 2019-02-17 06:20 | Emergency (ER) | payer OTHER ==
[2019-02-17 06:28] VITALS: BP 151/81; PULSE 89; RESP 17; TEMP 97.8
[2019-02-17] MEDS ORDERED: IBUPROFEN 600 MG STARTER PACK 4 TAB BTL PO STA (07:34)
--- NOTE | 2019-02-17 07:38 | ED ---
Extremity Problem HPI - General Chief complaint: Extremity Problem,Nontraumatic Stated complaint: R Foot Pain Time Seen by Provider: 02/17/19 07:07 Source: patient, RN notes reviewed, old records reviewed Mode of arrival: ambulatory Limitations: no limitations - History of Present Illness Initial comments: 48-year-old female presents emergency department today with right foot pain. Patient reports that she's had no falls or trauma. She reports she's had similar pain such as this 5 years ago and was related to a bone spur. She reports the pain seems to be worse upon awakening.. She states it seems to persist throughout the day. Patient states that she has had no peripheral paresthesias. She denies any associated leg or calf pain or ankle pain. Patient states that she's had previous falls burn was put in a boot. She states she's been working a lot and on her feet frequently. - Related Data Home Medications Medication Instructions Recorded Confirmed Ibuprofen [Motrin Ib] 1,000 mg PO Q6H PRN 02/17/19 02/17/19 Previous Rx's Medication Instructions Recorded Naproxen 500 mg PO BID #20 tablet 02/17/19 Allergies Allergy/AdvReac Type Severity Reaction Status Date / Time No Known Allergies Allergy Verified 02/17/19 07:01 Review of Systems ROS Statement: Those systems with pertinent positive or pertinent negative responses have been documented in the HPI. ROS Other: All systems not noted in ROS Statement are negative. Past Medical History Past Medical History: Osteoarthritis (OA), Seizure Disorder Additional Past Medical History / Comment(s): Hx Ovarian Cyst, chronic back and neck pain, had one time seizure about 5 yrs ago-none since & unknown cause per pt. History of Any Multi-Drug Resistant Organisms: None Reported Past Surgical History: Orthopedic Surgery, Tubal Ligation Additional Past Surgical History / Comment(s): Cyst removed from bilateral wrists, bones taken out of right wrist, tennis elbow release right elbow. Past Anesthesia/Blood Transfusion Reactions: No Reported Reaction Past Psychological History: No Psychological Hx Reported Smoking Status: Current every day smoker Past Alcohol Use History: None Reported Past Drug Use History: None Reported - Past Family History Mother Family Medical History: No Reported History General Exam - General Exam Comments Initial Comments: This patient's a 48-year-old female. Alert and oriented 3. No significant distress. Limitations: no limitations General appearance: alert, in no apparent distress Head exam: Present: atraumatic, normocephalic, normal inspection Eye exam: Present: normal appearance, PERRL, EOMI. Absent: scleral icterus, conjunctival injection, periorbital swelling ENT exam: Present: normal exam, mucous membranes moist Neck exam: Present: normal inspection. Absent: tenderness, meningismus, lymphadenopathy Respiratory exam: Present: normal lung sounds bilaterally. Absent: respiratory distress, wheezes, rales, rhonchi, stridor Cardiovascular Exam: Present: regular rate, normal rhythm, normal heart sounds. Absent: systolic murmur, diastolic murmur, rubs, gallop, clicks GI/Abdominal exam: Present: soft, normal bowel sounds. Absent: distended, ten derness, guarding, rebound, rigid Extremities exam: Present: normal inspection, full ROM, normal capillary refill. Absent: tenderness, pedal edema, joint swelling, calf tenderness Back exam: Present: normal inspection Neurological exam: Present: alert, oriented X3, CN II-XII intact Psychiatric exam: Present: normal affect, normal mood Skin exam: Present: warm, dry, intact, normal color. Absent: rash Course Vital Signs 02/17/19 06:24 Temperature 97.8 F Pulse Rate 89 Respiratory 17 Rate Blood Pressure 151/81 O2 Sat by Pulse 98 Oximetry Medical Decision Making - Medical Decision Making Patient is a 48-year-old female with atraumatic right foot and heel pain. Patient reports it started after she seems to be working for [employer] and feet. She does wear good arch support. Patient is tender over the plantar aspect of the foot and over the lateral aspect of the foot as well. X-rays completed. Minimal bone spurring noted at the heel. No other signs of fracture dislocation. Patient has been advised that she likely is suffering from plantar fasciitis. I discussed that she may need to follow-up with podiatry for further evaluation and splint. Patient will be discharged and temperature [employer] and given a note for work. All questions answered. - Radiology Data Radiology results: report reviewed No acute fracture or dislocation noted on the right foot x-ray. Disposition Clinical Impression: Plantar fasciitis of right foot Disposition: HOME SELF-CARE Condition: Good Instructions (If sedation given, give patient instructions): Plantar Fasciitis (ED), Plantar Fasciitis Exercises (ED) Additional Instructions: Patient is to rest ice and elevate the foot and recommended freezing a water bottle and rolling her heel and foot on the water bottle to help with inflammation. Patient should take the anti-inflammatory medication as prescribed. Return to emergency department if any alarming signs or symptoms occur. Recommended following up with podiatry and transitional living specialist. Prescriptions: Naproxen 500 mg PO BID #20 tablet Is patient prescribed a controlled substance at d/c from ED?: No Referrals: None,Stated [Primary Care Provider] - 1-2 days Anthony Dwyer DPM [STAFF PHYSICIAN] - 1-2 days Paco Fox MD [Medical Doctor] - 1-2 days Time of Disposition: 07:42
--- NOTE | 2019-02-17 07:56 | XR ---
EXAMINATION TYPE: XR foot complete RT DATE OF EXAM: 02/17/2019 CLINICAL HISTORY: pain TECHNIQUE: Frontal, lateral and oblique images of the right foot are obtained. COMPARISON: None. FINDINGS: There is no acute fracture/dislocation evident. The joint spaces appear within normal larios its. The overlying soft tissue appears unremarkable. IMPRESSION: There is no acute fracture or dislocation. ICD 10 NO FRACTURE, INITIAL EVALUATION
[2019-02-17] MEDS ORDERED: Acetaminophen-Codeine 300-30mg TAB PO STA (08:05)
== END 2019-02-17 08:15 | disposition home or self-care (01) ==
LOC: EC 06:20
DX: M72.2 Plantar fascial fibromatosis (principal); M77.51 Other enthesopathy of right foot and ankle; F17.200 Nicotine dependence, unspecified, uncomplicated; M19.90 Unspecified osteoarthritis, unspecified site; G89.29 Other chronic pain; M54.9 Dorsalgia, unspecified; M54.2 Cervicalgia; Z79.1 Long term (current) use of non-steroidal anti-inflammatories (NSAID)
CPT/HCPCS: 99284

== ENCOUNTER 2019-03-09 22:03 | Emergency (ER) | payer OTHER ==
[2019-03-09 22:06] VITALS: BP 160/92; PULSE 95; RESP 18; TEMP 98.9
[2019-03-09] MEDS ORDERED: ACET/COD 300 MG/30 MG STARTER PACK 6 TAB BTL PO STA (22:08)
[2019-03-09] MEDS ORDERED: PENICILLIN VK 500MG STARTER 4 TAB BTL PO STA (22:08)
--- NOTE | 2019-03-09 22:10 | ED ---
ENT HPI - General Chief complaint: Dental/Oral Stated complaint: Abcess tooth Time Seen by Provider: 03/09/19 22:06 Source: patient Mode of arrival: ambulatory Limitations: no limitations - History of Present Illness Initial comments: 48yo female presenting for chief complaint of right lower dental pain x 1 day. Patient returned she has abscess. States pain began yesterday. Patient states she was worried she needed antibiotics. Denies fevers sites look symptoms slight swelling below tongue. States she is in mild swelling of the face near the tooth pain. Patient denies any difficulty breathing compresses symptoms or swelling below the angle of the mandible. Many review of systems negative upon arrival patient afebrile appearing well - Related Data Home Medications Medication Instructions Recorded Confirmed Ibuprofen [Motrin Ib] 1,000 mg PO Q6H PRN 02/17/19 02/17/19 Previous Rx's Medication Instructions Recorded Naproxen 500 mg PO BID #20 tablet 02/17/19 Penicillin V Potassium [Pen Vee K] 500 mg PO QID 7 Days #28 tablet 03/09/19 Allergies Allergy/AdvReac Type Severity Reaction Status Date / Time No Known Allergies Allergy Verified 03/09/19 22:06 Review of Systems ROS Statement: Those systems with pertinent positive or pertinent negative responses have been documented in the HPI. ROS Other: All systems not noted in ROS Statement are negative. Past Medical History Past Medical History: Osteoarthritis (OA), Seizure Disorder Additional Past Medical History / Comment(s): Hx Ovarian Cyst, chronic back and neck pain, had one time seizure about 5 yrs ago-none since & unknown cause per pt. History of Any Multi-Drug Resistant Organisms: None Reported Past Surgical History: Orthopedic Surgery, Tubal Ligation Additional Past Surgical History / Comment(s): Cyst removed from bilateral wrists, bones taken out of right wrist, tennis elbow release right elbow. Past Anesthesia/Blood Transfusion Reactions: No Reported Reaction Past Psychological History: No Psychological Hx Reported Smoking Status: Current every day smoker Past Alcohol Use History: None Reported Past Drug Use History: None Reported - Past Family History Mother Family Medical History: No Reported History General Exam - General Exam Comments Initial Comments: General: The patient is awake and alert, in no distress, and does not appear acutely ill. Eye: +3 mm pupils are equal, round and reactive to light, extra-ocular movements are intact. No nystagmus. There is normal conjunctiva bilaterally. No signs of icterus. Ears, nose, mouth and throat: There are moist mucous membranes and no oral lesions. No swelling below tongue or the angle of the. mandible No tooth abscess pain to percussion tooth number 28. Neck: The neck is supple, there is no tenderness or JVD. Cardiovascular: There is a regular rate and rhythm. No murmur, rub or gallop is appreciated. Respiratory: Lungs are clear to auscultation, respirations are non-labored, breath sounds are equal. No wheezes, stridor, rales, or rhonchi. Musculoskeletal: Normal ROM, no tenderness. Strength 5/5. Sensation intact. Pulses equal bilaterally 2+. Neurological: A&O x 3. CN II-XII intact grossly, There are no obvious motor or sensory deficits. Coordination appears grossly intact. Speech is normal. Skin: Skin is warm and dry and no rashes or lesions are noted. Psychiatric: Cooperative, appropriate mood & affect, normal judgment. Limitations: no limitations Course Vital Signs 03/09/19 22:04 Temperature 98.9 F Pulse Rate 95 Respiratory 18 Rate Blood Pressure 160/92 O2 Sat by Pulse 99 Oximetry Medical Decision Making - Medical Decision Making 48 or female presented for dental pain right lower tooth over 20 tender to percussion. Patient started on Pen-Vee K. Given Tylenol starter pack. Patient return parameters discussed at length. Patient has no signs of Valeriy's angina and no systemic spread of infection no chest pain no fevers. Patient appears well signs of acute distress. Patient be discharged appearing well with dentist follow-up for extraction. Disposition Clinical Impression: Pain, dental Disposition: HOME SELF-CARE Condition: Good Instructions (If sedation given, give patient instructions): Dental Abscess (ED) Additional Instructions: Please use medication as discussed. Please follow-up with dentist for tooth extraction. Return for swelling under the tongue, difficulty breathing or swallowing, increased swellling of face, fever, flu like symptoms. Please return to emergency room if the symptoms increase or worsen or for any other concerns. Prescriptions: Penicillin V Potassium [Pen Vee K] 500 mg PO QID 7 Days #28 tablet Is patient prescribed a controlled substance at d/c from ED?: No Referrals: None,Stated [Primary Care Provider] - 1-2 days Ezekiel Gonzalez DDS [STAFF PHYSICIAN] - 1-2 days Time of Disposition: 22:09
== END 2019-03-09 22:23 | disposition home or self-care (01) ==
LOC: EC 22:03
DX: K08.89 Other specified disorders of teeth and supporting structures (principal); F17.200 Nicotine dependence, unspecified, uncomplicated
CPT/HCPCS: 99282

== ENCOUNTER 2019-03-13 21:45 | Emergency (ER) | payer OTHER ==
[2019-03-13 21:52] VITALS: BP 148/90; PULSE 87; RESP 16; TEMP 97.9
[2019-03-13] MEDS ORDERED: ACET/COD 300 MG/30 MG STARTER PACK 6 TAB BTL PO STA (22:24)
--- NOTE | 2019-03-13 22:24 | ED ---
General Adult HPI - General Chief complaint: Dental/Oral Stated complaint: Dental pain Time Seen by Provider: 03/13/19 22:01 Source: patient, RN notes reviewed, old records reviewed Mode of arrival: ambulatory Limitations: no limitations - History of Present Illness Initial comments: 48-year-old female patient with past medical history of poor dentition, status post tubal ligation presents ED with dental pain. Patient was seen here approximate 4 days ago for right lower dental pain and placed on Penicillin VK. Patient was that she is still having pain in that region. Reports that she does have a dentist appointment on Friday. Denies any other complaints at this time. Systemic: Pt denies fatigue, fever/chills, rash. Pt denies weakness, night sweats, weight loss. Neuro: Pt denies headache, visual disturbances, syncope or pre-syncope. HEENT: Pt denies ocular discharge or irritation, otalgia, rhinorrhea, pharyngitis or notable lymphadenopathy. Cardiopulmonary: Pt denies chest pain, SOB, heart palpitations, dyspnea on exertion. Abdominal/GI: Pt denies abdominal pain, n/v/d. : Pt denies dysuria, burning w/ urination, frequency/urgency. Denies new onset urinary or bowel incontinence. MSK: Pt denies myalgia, loss of strength or function in extremities. Neuro: Pt denies new onset weakness, paresthesias. - Related Data Home Medications Medication Instructions Recorded Confirmed Ibuprofen [Motrin Ib] 1,000 mg PO Q6H PRN 02/17/19 02/17/19 Previous Rx's Medication Instructions Recorded Naproxen 500 mg PO BID #20 tablet 02/17/19 Penicillin V Potassium [Pen Vee K] 500 mg PO QID 7 Days #28 tablet 03/09/19 Clindamycin [Cleocin] 450 mg PO Q8HR 7 Days capsule 03/13/19 Allergies Allergy/AdvReac Type Severity Reaction Status Date / Time No Known Allergies Allergy Verified 03/13/19 21:50 Review of Systems ROS Statement: Those systems with pertinent positive or pertinent negative responses have been documented in the HPI. ROS Other: All systems not noted in ROS Statement are negative. Past Medical History Past Medical History: Osteoarthritis (OA), Seizure Disorder Additional Past Medical History / Comment(s): Hx Ovarian Cyst, chronic back and neck pain, had one time seizure about 5 yrs ago-none since & unknown cause per pt. History of Any Multi-Drug Resistant Organisms: None Reported Past Surgical History: Orthopedic Surgery, Tubal Ligation Additional Past Surgical History / Comment(s): Cyst removed from bilateral wrists, bones taken out of right wrist, tennis elbow release right elbow. Past Anesthesia/Blood Transfusion Reactions: No Reported Reaction Past Psychological History: No Psychological Hx Reported Smoking Status: Current every day smoker Past Alcohol Use History: None Reported Past Drug Use History: None Reported - Past Family History Mother Family Medical History: No Reported History General Exam - General Exam Comments Initial Comments: Constitutional: NAD, AOX3, Pt has pleasant affect. HEENT: NC/AT, trachea midline, neck supple, no lymphadenopathy. Posterior pharynx non erythematous, without exudates. External ears appear normal, without discharge. Mucous membranes moist. Eyes PERRLA, EOM intact. There is no scleral icterus. No pallor noted. Dental exam revealed poor dentition, erythematous gums and lower right jaw, no drainable abscess, no drainage noted. Cardiopulmonary: RRR, no murmurs, rubs or gallops, no JVD noted. Lungs CTAB in anterior and posterior frye. No peripheral edema. Abdominal exam: Abdomen soft and non-distended. Abdomen non-tender to palpation in all 4 quadrants. Bowel sounds active in LLQ. No hepatosplenomegaly. No ecchymosis Neuro: CN II-XII grossly intact. No nuchal rigidity. No raccon eyes, no polo sign, no hemotympanum. No cervical spinal tenderness. MSK: No posterior calf tenderness bilaterally, homans sign negative bilaterally. Posterior tibialis and radial pulse +2 bilaterally. Sensation intact in upper and lower extremities. Full active ROM in upper and lower extremities, 5/5 stregnth. Limitations: no limitations Course Vital Signs 03/13/19 21:50 Temperature 97.9 F Pulse Rate 87 Respiratory 16 Rate Blood Pressure 148/90 O2 Sat by Pulse 98 Oximetry Medical Decision Making - Medical Decision Making 48 old female patient presents ED chief complaint of dental pain. Patient felt some still febrile. Patient states she cannot be secondary tubal ligation. Physical exam displayed erythematous gums, no drainable abscess. Patient was switched to clindamycin, will discharge with outpatient follow-up with dentist. Case discussed with Dr. Mathias. Disposition Clinical Impression: Pain, dental Disposition: HOME SELF-CARE Condition: Stable Instructions (If sedation given, give patient instructions): Toothache (ED) Additional Instructions: Patient to adhere to previously discussed treatment plan and will take medication(s) as directed. Patient to follow up with PCP in 1-2 days. Patient to return to ED if symptoms do not improve. Follow-up with dentist as previously scheduled follow-up with primary care provider in 1-2 days. Prescriptions: Clindamycin [Cleocin] 450 mg PO Q8HR 7 Days capsule Is patient prescribed a controlled substance at d/c from ED?: No Referrals: Chiara Huerta MD [Primary Care Provider] - 1-2 days
== END 2019-03-13 22:42 | disposition home or self-care (01) ==
LOC: EC 21:45
DX: K08.89 Other specified disorders of teeth and supporting structures (principal); F17.200 Nicotine dependence, unspecified, uncomplicated
CPT/HCPCS: 99283

== ENCOUNTER 2019-03-27 20:39 | Emergency (ER) | payer OTHER ==
[2019-03-27 20:45] VITALS: BP 134/76; PULSE 101; RESP 18; TEMP 97.9
--- NOTE | 2019-03-27 21:40 | XR ---
EXAMINATION TYPE: XR knee complete RT DATE OF EXAM: 03/27/2019 COMPARISON: NONE HISTORY: Pain TECHNIQUE: 3 views FINDINGS: There is no sign of fracture nor dislocation. Joint spaces are normal. There is no sign of knee joint effusion. IMPRESSION: Negative right knee exam.
[2019-03-27] MEDS ORDERED: traMADol 50 MG STARTER PACK 3 TAB BTL PO STA (21:50)
--- NOTE | 2019-03-27 21:52 | ED ---
Lower Extremity Injury HPI - General Chief Complaint: Extremity Injury, Lower Stated Complaint: knee pain Time Seen by Provider: 03/27/19 20:46 Source: patient, RN notes reviewed Mode of arrival: ambulatory Limitations: no limitations - History of Present Illness Initial Comments: 48-year-old female presents emergency Department chief complaint of right knee pain. Patient's been having worsening plantar fasciitis. Patient scheduled to see orthopedics with states that she's been walking differently and hernia his brother. Patient denies any trauma no redness or swelling no ears or chills. Patient states his just sore when she stands all day or when she walks. - Related Data Home Medications Medication Instructions Recorded Confirmed Ibuprofen [Motrin Ib] 1,000 mg PO Q6H PRN 02/17/19 02/17/19 Previous Rx's Medication Instructions Recorded Naproxen 500 mg PO BID #20 tablet 02/17/19 Penicillin V Potassium [Pen Vee K] 500 mg PO QID 7 Days #28 tablet 03/09/19 Clindamycin [Cleocin] 450 mg PO Q8HR 7 Days capsule 03/13/19 Allergies Allergy/AdvReac Type Severity Reaction Status Date / Time No Known Allergies Allergy Verified 03/27/19 20:45 Review of Systems ROS Statement: Those systems with pertinent positive or pertinent negative responses have been documented in the HPI. ROS Other: All systems not noted in ROS Statement are negative. Past Medical History Past Medical History: Osteoarthritis (OA), Seizure Disorder Additional Past Medical History / Comment(s): Hx Ovarian Cyst, chronic back and neck pain, had one time seizure about 5 yrs ago-none since & unknown cause per pt., History of Any Multi-Drug Resistant Organisms: None Reported Past Surgical History: Orthopedic Surgery, Tubal Ligation Additional Past Surgical History / Comment(s): Cyst removed from bilateral wrists, bones taken out of right wrist, tennis elbow release right elbow. Past Anesthesia/Blood Transfusion Reactions: No Reported Reaction Past Psychological History: No Psychological Hx Reported Smoking Status: Current every day smoker Past Alcohol Use History: None Reported Past Drug Use History: None Reported - Past Family History Mother Family Medical History: No Reported History General Exam Limitations: no limitations General appearance: alert, in no apparent distress Head exam: Present: atraumatic, normocephalic, normal inspection Respiratory exam: Present: normal lung sounds bilaterally. Absent: respiratory distress, wheezes, rales, rhonchi, stridor Cardiovascular Exam: Present: regular rate, normal rhythm, normal heart sounds. Absent: systolic murmur, diastolic murmur, rubs, gallop, clicks Extremities exam: Present: other (Right knee full range of motion no laxity there is mild tenderness on the lateral portion no erythema) Skin exam: Present: warm, dry, intact, normal color. Absent: rash Course Vital Signs 03/27/19 20:42 Temperature 97.9 F Pulse Rate 101 H Respiratory 18 Rate Blood Pressure 134/76 O2 Sat by Pulse 98 Oximetry Medical Decision Making - Medical Decision Making 48 show female presented for right knee pain. X-rays unremarkable. Patient's pain related to change in gait. Patient will be following up with orthopedics at her scheduled appointment. We discussed rest ice elevation. Disposition Clinical Impression: Right knee pain Disposition: HOME SELF-CARE Condition: Stable Instructions (If sedation given, give patient instructions): Knee Pain (ED) Additional Instructions: Please return to the Emergency Department if symptoms worsen or any other concerns. Is patient prescribed a controlled substance at d/c from ED?: No Referrals: Chiara Huerta MD [Primary Care Provider] - 1-2 days Time of Disposition: 21:50
== END 2019-03-27 21:59 | disposition home or self-care (01) ==
LOC: EC 20:39
DX: M25.561 Pain in right knee (principal); F17.200 Nicotine dependence, unspecified, uncomplicated
CPT/HCPCS: 99283

== ENCOUNTER 2019-06-06 12:24 | Emergency (ER) | payer OTHER ==
[2019-06-06 12:50] VITALS: TEMP 98.2
--- NOTE | 2019-06-06 13:10 | ED ---
Lower Extremity Injury HPI - General Chief Complaint: Extremity Injury, Lower Stated Complaint: Foot Injury Time Seen by Provider: 06/06/19 12:53 Source: patient, RN notes reviewed Mode of arrival: ambulatory Limitations: no limitations - History of Present Illness Initial Comments: This a 48-year-old female presents emergency Department chief complaint of right ankle pain, injury. Patient states that she rolled her ankle yesterday. Patient states she felt a pop, snap feeling. She has had a prior fracture. She is currently using crutches. She did notice increased swelling, bruising. Patient has no current paresthesias denies any proximal leg pain. - Related Data Home Medications Medication Instructions Recorded Confirmed Ibuprofen [Motrin Ib] 1,000 mg PO Q6H PRN 02/17/19 02/17/19 Previous Rx's Medication Instructions Recorded Naproxen 500 mg PO BID #20 tablet 02/17/19 Penicillin V Potassium [Pen Vee K] 500 mg PO QID 7 Days #28 tablet 03/09/19 Clindamycin [Cleocin] 450 mg PO Q8HR 7 Days capsule 03/13/19 Ibuprofen [Motrin] 600 mg PO Q8HR PRN #30 tab 06/06/19 Allergies Allergy/AdvReac Type Severity Reaction Status Date / Time No Known Allergies Allergy Verified 06/06/19 12:50 Review of Systems ROS Statement: Those systems with pertinent positive or pertinent negative responses have been documented in the HPI. ROS Other: All systems not noted in ROS Statement are negative. Past Medical History Past Medical History: Osteoarthritis (OA), Seizure Disorder Additional Past Medical History / Comment(s): Hx Ovarian Cyst, chronic back and neck pain, had one time seizure about 5 yrs ago-none since & unknown cause per pt., History of Any Multi-Drug Resistant Organisms: None Reported Past Surgical History: Orthopedic Surgery, Tubal Ligation Additional Past Surgical History / Comment(s): Cyst removed from bilateral wrists, bones taken out of right wrist, tennis elbow release right elbow. Past Anesthesia/Blood Transfusion Reactions: No Reported Reaction Past Psychological History: No Psychological Hx Reported Smoking Status: Current every day smoker Past Alcohol Use History: None Reported Past Drug Use History: None Reported - Past Family History Mother Family Medical History: No Reported History General Exam Limitations: no limitations General appearance: alert, in no apparent distress Head exam: Present: atraumatic, normocephalic, normal inspection Neck exam: Present: normal inspection, full ROM. Absent: tenderness, meningismus, lymphadenopathy Respiratory exam: Present: normal lung sounds bilaterally. Absent: respiratory distress, wheezes, rales, rhonchi, stridor Cardiovascular Exam: Present: regular rate, normal rhythm, normal heart sounds. Absent: systolic murmur, diastolic murmur, rubs, gallop, clicks Extremities exam: Present: other (Right ankle there is moderate swelling to lateral portion, tenderness with palpation, mild tenderness over the anterior surface no foot tenderness or proximal tib-fib tenderness) Skin exam: Present: warm, dry, intact, normal color. Absent: rash Course Vital Signs 06/06/19 12:48 Temperature 98.2 F Pulse Rate 107 H Respiratory 18 Rate Blood Pressure 145/81 O2 Sat by Pulse 99 Oximetry Medical Decision Making - Medical Decision Making 48-year-old female presents emergency department for right ankle pain. X-rays were obtained no acute fracture. Patient is right ankle sprain advise follow-up PCP. Disposition Clinical Impression: Right ankle sprain Disposition: HOME SELF-CARE Condition: Stable Instructions (If sedation given, give patient instructions): Ankle Sprain (ED) Additional Instructions: Please return to the Emergency Department if symptoms worsen or any other concerns. Prescriptions: Ibuprofen [Motrin] 600 mg PO Q8HR PRN #30 tab PRN Reason: Pain Is patient prescribed a controlled substance at d/c from ED?: No Referrals: Chiara Huerta MD [Primary Care Provider] - 1-2 days Time of Disposition: 13:54
--- NOTE | 2019-06-06 13:15 | XR ---
EXAMINATION TYPE: XR ankle complete RT , 3 VIEWS DATE OF EXAM ORDERED: 06/06/2019 HISTORY: pain, injury, swelling. COMPARISON: None. FINDINGS: No fracture, dislocation or ankle joint effusion is seen. IMPRESSION: NO ACUTE OSSEOUS LESION.
[2019-06-06] MEDS ORDERED: ACET/COD 300 MG/30 MG STARTER PACK 6 TAB BTL PO STA (13:54)
[2019-06-06 14:32] VITALS: BP 127/68; PULSE 76; RESP 16
== END 2019-06-06 14:30 | disposition home or self-care (01) ==
LOC: EC 12:24
DX: S93.401A Sprain of unspecified ligament of right ankle, initial encounter (principal); F17.200 Nicotine dependence, unspecified, uncomplicated; M19.90 Unspecified osteoarthritis, unspecified site; G89.29 Other chronic pain; M54.9 Dorsalgia, unspecified; Z98.890 Other specified postprocedural states; X50.1XXA Overexertion from prolonged static or awkward postures, initial encounter
CPT/HCPCS: 99283

== ENCOUNTER 2019-09-14 10:14 | Emergency (ER) | payer BC, OTHER ==
[2019-09-14 10:18] VITALS: RESP 20; TEMP 97.8
[2019-09-14] MEDS ORDERED: KETOROLAC 30 MG/ML 1 ML VIAL IM STA (10:23)
--- NOTE | 2019-09-14 10:41 | ED ---
Extremity Problem HPI - General Chief complaint: Extremity Problem,Nontraumatic Stated complaint: Knee swelling Time Seen by Provider: 09/14/19 10:19 Source: patient Mode of arrival: ambulatory Limitations: no limitations - History of Present Illness Initial comments: 49 year old female presenting today for chief complaint of right knee pain since this morning. Patient states that she has history of osteoarthritis and different areas of her body she states she has suffered with chronic on and off knee pain. Patient states she difficulty getting out of bed this morning secondary to the right knee pain she states she thought it looked slightly swollen in comparison with the left. Patient denies any redness denies any fever or chills. Symptoms. Patient denies any recent surgical procedures. Patient states she walked here from her home, she states she is still able to range but feels like it is grinding. Patient denies falls, or direct trauma. Patient denies coolness pallor or extremity, calf swelling or redness. Patient denies numbness or loss of sensation. Denies hip or low back pain. Remaining ROS (-). She is pleasant and well appearing on arrival, ambulating without difficulty-took tramadol prior to arrival. - Related Data Home Medications Medication Instructions Recorded Confirmed Ibuprofen [Motrin Ib] 1,000 mg PO Q6H PRN 02/17/19 06/06/19 Ergocalciferol [Vitamin D2] 50,000 unit PO TH 06/06/19 06/06/19 Previous Rx's Medication Instructions Recorded Ibuprofen [Motrin] 600 mg PO Q8HR PRN #30 tab 06/06/19 Allergies Allergy/AdvReac Type Severity Reaction Status Date / Time No Known Allergies Allergy Verified 06/06/19 14:05 Review of Systems ROS Statement: Those systems with pertinent positive or pertinent negative responses have been documented in the HPI. ROS Other: All systems not noted in ROS Statement are negative. Past Medical History Past Medical History: Osteoarthritis (OA), Seizure Disorder Additional Past Medical History / Comment(s): Hx Ovarian Cyst, chronic back and neck pain, had one time seizure about 5 yrs ago-none since & unknown cause per pt., History of Any Multi-Drug Resistant Organisms: None Reported Past Surgical History: Orthopedic Surgery, Tubal Ligation Additional Past Surgical History / Comment(s): Cyst removed from bilateral wrists, bones taken out of right wrist, tennis elbow release right elbow. Past Anesthesia/Blood Transfusion Reactions: No Reported Reaction Past Psychological History: Depression Smoking Status: Current every day smoker Past Alcohol Use History: None Reported Past Drug Use History: None Reported - Past Family History Mother Family Medical History: No Reported History General Exam - General Exam Comments Initial Comments: General: The patient is awake and alert, in no distress, and does not appear acutely ill. Eye: +3 mm pupils are equal, round and reactive to light, extra-ocular movements are intact. No nystagmus. There is normal conjunctiva bilaterally. No signs of icterus. Cardiovascular: There is a regular rate and rhythm. No murmur, rub or gallop is appreciated. Respiratory: Lungs are clear to auscultation, respirations are non-labored, breath sounds are equal. No wheezes, stridor, rales, or rhonchi. Gastrointestinal: Soft, non-distended, non-tender abdomen without masses or organomegaly noted. There is no rebound or guarding present. Musculoskeletal: Upon inspection of the knees bilaterally there is no redness, no warmth. Patient has mild soft tissue swelling noted the right knee in comparison the left however there is no erythema. Patient is able to fully range any difficulty. Knees bilaterally symmetrical This is noted of the knees bilaterally with range of motion. Strength intact extensor mechanism intact. Dorsalis pedis pulses are +2 equal and comparison bilaterally. Sensation is intact proximal and distal to injury site'.. Patient weight bears witout difficulty. Neurological: A&O x 3. CN II-XII intact grossly, There are no obvious motor or sensory deficits. Coordination appears grossly intact. Speech is normal. Skin: Skin is warm and dry and no rashes or lesions are noted. Psychiatric: Cooperative, appropriate mood & affect, normal judgment. Limitations: no limitations Course Vital Signs 09/14/19 09/14/19 09/14/19 10:15 10:48 11:12 Temperature 97.8 F Pulse Rate 119 H 108 H Respiratory 20 20 20 Rate Blood Pressure 125/76 122/82 O2 Sat by Pulse 95 95 Oximetry Medical Decision Making - Medical Decision Making 49yo female presenting today for chief complaint of right knee pain, no redness, able to fully range, no fevers. Hx of osteoarthritis. Patient ambulates here from her home. Patient XR shows effusion. Recommend RICE instruction and close monitoring for fevers, redness, increasing swelling/pain or decreased ROM--otherwise given patient ROM, knee appearance I do not feel this is a septic joint. patient HR mildly elevated on repeat VS however she states it is never under 100. Patient denies CP/SOB. [facility] at this time feel she is stable for discharge discussed case in detail by attending provider Dr. Frias is agreeable to plan discharge at this time. Disposition Clinical Impression: Right knee pain, Effusion of right knee joint Disposition: HOME SELF-CARE Condition: Good Instructions (If sedation given, give patient instructions): Swollen Knee Joint (ED), Knee Pain (ED) Additional Instructions: Please use medication as discussed. Please follow-up with family doctor in the next 2 days, as well as orthopedic associated as discussed. Please return to emergency room if the symptoms increase or worsen or for any other concerns. Is patient prescribed a controlled substance at d/c from ED?: No Referrals: Chiara Huerta MD [Primary Care Provider] - 1-2 days Baldomero Castillo DO [Medical Doctor] - 1-2 days Time of Disposition: 11:07
--- NOTE | 2019-09-14 10:42 | XR ---
Right knee HISTORY: Pain and swelling 3 views of the right knee Correlation to prior exam 03/27/2018 Suprapatellar increased density suggests joint effusion. Alignment, bone mineralization, joint spaces are maintained. Mild spurring present in the medial compartment. No evident fracture or dislocation. IMPRESSION: Knee joint effusion. Mild osteoarthritis. Consider knee MRI.
[2019-09-14 10:49] VITALS: BP 122/82; PULSE 108
== END 2019-09-14 11:19 | disposition home or self-care (01) ==
LOC: EC 10:14
DX: M17.11 Unilateral primary osteoarthritis, right knee (principal); R00.0 Tachycardia, unspecified; G89.29 Other chronic pain; M54.2 Cervicalgia; Z98.890 Other specified postprocedural states; F17.200 Nicotine dependence, unspecified, uncomplicated
CPT/HCPCS: 73562; 99283; 96372; J1885

== ENCOUNTER 2019-12-12 18:14 | Emergency (ER) | payer BC, OTHER ==
[2019-12-12 18:18] VITALS: BP 128/85; PULSE 104; RESP 20; TEMP 98.6
[2019-12-12] MEDS ORDERED: ACET/COD 300 MG/30 MG STARTER PACK 6 TAB BTL PO STA (18:25)
[2019-12-12] MEDS ORDERED: AMOXIC-POT CLAV 875MG STARTER PACK 2 TAB BTL PO STA (18:26)
--- NOTE | 2019-12-12 18:34 | ED ---
ENT HPI - General Chief complaint: Dental/Oral Stated complaint: Dental Pain Time Seen by Provider: 12/12/19 18:19 Source: patient Mode of arrival: ambulatory Limitations: no limitations - History of Present Illness Initial comments: Patient is a 49-year-old female with history of poor dentition presenting to the emergency department with chief complaint abdominal pain. Patient states she has partially fractured teeth on the left upper jaw. States she recently received dental insurance and is currently looking for a new dentist. Patient reports over the last 3 days she developed pain and gingival irritation where the fracture teeth are located. Patient reports mild swelling in the left upper lip region. Denies any night sweats fevers or chills. Denies nausea or vomiting diarrhea. - Related Data Home Medications Medication Instructions Recorded Confirmed Ergocalciferol [Vitamin D2] 50,000 unit PO TH 06/06/19 12/12/19 Previous Rx's Medication Instructions Recorded Ibuprofen [Motrin] 600 mg PO Q8HR PRN #30 tab 06/06/19 Amoxicillin/Potassium Clav 1 tab PO Q12HR #20 tab 12/12/19 [Augmentin 875-125 Tablet] Allergies Allergy/AdvReac Type Severity Reaction Status Date / Time No Known Allergies Allergy Verified 12/12/19 18:18 Review of Systems ROS Statement: Those systems with pertinent positive or pertinent negative responses have been documented in the HPI. ROS Other: All systems not noted in ROS Statement are negative. Past Medical History Past Medical History: Osteoarthritis (OA), Seizure Disorder Additional Past Medical History / Comment(s): Hx Ovarian Cyst, chronic back and neck pain, had one time seizure about 5 yrs ago-none since & unknown cause per pt., History of Any Multi-Drug Resistant Organisms: None Reported Past Surgical History: Orthopedic Surgery, Tubal Ligation Additional Past Surgical History / Comment(s): Cyst removed from bilateral wrists, bones taken out of right wrist, tennis elbow release right elbow. Past Anesthesia/Blood Transfusion Reactions: No Reported Reaction Past Psychological History: Depression Smoking Status: Current every day smoker Past Alcohol Use History: None Reported Past Drug Use History: None Reported - Past Family History Mother Family Medical History: No Reported History General Exam Limitations: no limitations General appearance: alert, in no apparent distress Head exam: Present: atraumatic, normocephalic, normal inspection Eye exam: Present: normal appearance, PERRL, EOMI Pupils: Present: normal accommodation ENT exam: Present: normal exam, mucous membranes moist, TM's normal bilaterally, normal external ear exam. Absent: normal oropharynx (Poor dentition. Multiple eroded teeth and cavities. Gingival irritation with mild swelling. No signs of periapical abscess.) Neck exam: Present: tenderness, full ROM Respiratory exam: Present: normal lung sounds bilaterally Cardiovascular Exam: Present: regular rate, normal rhythm, normal heart sounds Extremities exam: Present: normal inspection, full ROM Back exam: Present: normal inspection, full ROM Neurological exam: Present: alert, oriented X3 Psychiatric exam: Present: normal affect, normal mood Skin exam: Present: warm, dry, intact, normal color Course Vital Signs 12/12/19 18:16 Temperature 98.6 F Pulse Rate 104 H Respiratory 20 Rate Blood Pressure 128/85 O2 Sat by Pulse 99 Oximetry Medical Decision Making - Medical Decision Making Patient is a 49-year-old female with history of poor dentition presenting to emergency Department with a chief complaint of dental pain. Physical examination patient does appear to have gingival irritation around tooth #9 and 10. Mild swelling in the region. No signs of periapical abscess or other lesions. Patient given a Tylenol 3 starter pack. She will be started on a 10 day course of Augmentin. Return parameters thoroughly discussed with patient is understanding and agreeable. Case discussed with physician. Disposition Clinical Impression: Acute gingival inflammation, Pain, dental Disposition: HOME SELF-CARE Additional Instructions: Take prescribed Medication as directed. Follow with a dentist. Return to emergency department if symptoms worsen. Prescriptions: Amoxicillin/Potassium Clav [Augmentin 875-125 Tablet] 1 tab PO Q12HR #20 tab Is patient prescribed a controlled substance at d/c from ED?: No Referrals: Chiara Huerta MD [Primary Care Provider] - 1-2 days Time of Disposition: 18:34
== END 2019-12-12 18:50 | disposition home or self-care (01) ==
LOC: EC 18:14
DX: K08.89 Other specified disorders of teeth and supporting structures (principal); K05.00 Acute gingivitis, plaque induced; F17.200 Nicotine dependence, unspecified, uncomplicated
CPT/HCPCS: 99282

== ENCOUNTER 2020-04-30 18:17 | Emergency (ER) | payer BC, OTHER ==
[2020-04-30 18:21] VITALS: BP 134/79; PULSE 94; RESP 18; TEMP 98
[2020-04-30] MEDS ORDERED: KETOROLAC 15 MG/ML 1 ML VIAL IM STA (18:40)
--- NOTE | 2020-04-30 19:03 | XR ---
EXAMINATION TYPE: XR knee complete RT DATE OF EXAM: 04/30/2020 COMPARISON: 09/14/2019 HISTORY: Knee pain TECHNIQUE: FINDINGS: I see no fracture nor dislocation. Joint spaces are normal. There is no sign of knee joint effusion. IMPRESSION: Negative right knee exam. No change.
[2020-04-30] MEDS ORDERED: ACET/COD 300 MG/30 MG STARTER PACK 6 TAB BTL PO STA (19:07)
--- NOTE | 2020-04-30 19:07 | ED ---
Lower Extremity Injury HPI - General Chief Complaint: Extremity Injury, Lower Stated Complaint: Knee pain Time Seen by Provider: 04/30/20 18:24 Source: patient Mode of arrival: ambulatory Limitations: no limitations - History of Present Illness Initial Comments: 49-year-old female patient presents to the emergency department today for evaluation of right knee pain and swelling. Patient states that she had an injury several months ago has been having intermittent issues with that since. Patient states that 2 days ago she tripped reinjuring the knee. States she is having pain over the right lateral aspect. States she is having increased swelling over the area as well. States that she has taken ibuprofen without relief. She denies numbness or tingling down her leg. States she is able to ambulate but it does increase her pain. Denies any other injuries or concerns. Patient denies any headache, neck pain, back pain, chest pain, shortness of breath, dizziness, weakness, abdominal pain, nausea, vomiting, or difficulties with bowel movements or urination. - Related Data Home Medications Medication Instructions Recorded Confirmed Ergocalciferol [Vitamin D2] 50,000 unit PO TH 06/06/19 12/12/19 Previous Rx's Medication Instructions Recorded Ibuprofen [Motrin] 600 mg PO Q8HR PRN #30 tab 06/06/19 Amoxicillin/Potassium Clav 1 tab PO Q12HR #20 tab 12/12/19 [Augmentin 875-125 Tablet] Allergies Allergy/AdvReac Type Severity Reaction Status Date / Time No Known Allergies Allergy Verified 04/30/20 18:21 Review of Systems ROS Statement: Those systems with pertinent positive or pertinent negative responses have been documented in the HPI. ROS Other: All systems not noted in ROS Statement are negative. Past Medical History Past Medical History: Osteoarthritis (OA), Seizure Disorder Additional Past Medical History / Comment(s): Hx Ovarian Cyst, chronic back and neck pain, had one time seizure about 5 yrs ago-none since & unknown cause per pt., History of Any Multi-Drug Resistant Organisms: None Reported Past Surgical History: Orthopedic Surgery, Tubal Ligation Additional Past Surgical History / Comment(s): Cyst removed from bilateral wrists, bones taken out of right wrist, tennis elbow release right elbow. Past Anesthesia/Blood Transfusion Reactions: No Reported Reaction Past Psychological History: Depression Smoking Status: Current every day smoker Past Alcohol Use History: None Reported Past Drug Use History: None Reported - Past Family History Mother Family Medical History: No Reported History General Exam Limitations: no limitations General appearance: alert, in no apparent distress, other (This is a well- developed, well-nourished adult female patient in no acute distress. Vital signs upon presentation are temperature 98.0F, pulse 94, respirations 18, blood pressure 134/79, pulse ox 98% on room air.) Respiratory exam: Present: normal lung sounds bilaterally. Absent: respiratory distress, wheezes, rales, rhonchi, stridor Cardiovascular Exam: Present: regular rate, normal rhythm, normal heart sounds. Absent: systolic murmur, diastolic murmur, rubs, gallop, clicks Extremities exam: Present: full ROM, normal capillary refill, other (Right knee swelling noted, especially over the right lateral aspect. Skin is pink, warm, dry. Cap refills less than 3 seconds. Pedal and posttibial pulses are 2+ and equal bilaterally.). Absent: normal inspection, tenderness, pedal edema, joint swelling, calf tenderness Neurological exam: Present: alert, oriented X3, CN II-XII intact Psychiatric exam: Present: normal affect, normal mood Skin exam: Present: warm, dry, intact, normal color. Absent: rash Course Vital Signs 04/30/20 18:19 Temperature 98.0 F Pulse Rate 94 Respiratory 18 Rate Blood Pressure 134/79 O2 Sat by Pulse 98 Oximetry Medical Decision Making - Medical Decision Making 49-year-old female patient presents to the emergency department today for evaluation of right knee pain. Patient states she's had intermittent issues over the last several months. Physical examination did reveal soft tissue swelling especially over the right lateral aspect. Neurovascular status was intact. She had no pain or laxity with valgus or varus maneuvers. She was able to fully extend and flex the knee. X-rays were negative. She is placed in an Ramin wrap. We discharged follow up with orthopedics for further evaluation. Return parameters were discussed in detail. She verbalizes understanding and agrees with this plan - Radiology Data Radiology results: report reviewed, image reviewed X-rays of the right knee are obtained. Report reviewed in its entirety. Impression by Dr. Carpenter shows negative right knee exam. No change. Disposition Clinical Impression: Right knee pain Disposition: HOME SELF-CARE Condition: Good Instructions (If sedation given, give patient instructions): Knee Pain (ED) Additional Instructions: Use Ramin wrap for comfort and scheduled. Follow-up with orthopedic specialty for further evaluation as soon as possible, discuss MRI. Follow-up with your primary care physician for recheck in 1-2 days. Return to the emergency department immediately for any new, worsening, or concerning symptoms. Is patient prescribed a controlled substance at d/c from ED?: No Referrals: Chiara Huerta MD [Primary Care Provider] - 1-2 days Todd Verduzco MD [STAFF PHYSICIAN] - 1-2 days Time of Disposition: 19:07
== END 2020-04-30 19:18 | disposition home or self-care (01) ==
LOC: EC 18:17
DX: M25.561 Pain in right knee (principal); M79.89 Other specified soft tissue disorders; F17.200 Nicotine dependence, unspecified, uncomplicated
CPT/HCPCS: 73562; 96372; 99283; J1885

== ENCOUNTER 2020-05-13 18:07 | Emergency (ER) | payer BC, OTHER ==
[2020-05-13] MEDS ORDERED: KETOROLAC 15 MG/ML 1 ML VIAL IM STA (19:26)
--- NOTE | 2020-05-13 19:27 | ED ---
Extremity Problem HPI - General Chief complaint: Extremity Problem,Nontraumatic Stated complaint: knee pain Time Seen by Provider: 05/13/20 19:06 Source: patient Mode of arrival: ambulatory Limitations: no limitations - History of Present Illness Initial comments: 49-year-old female patient presents to the emergency department today for evaluation of right knee pain and swelling. Patient states his been going on for several months. Patient was in the emergency department for this week or 2 ago and was instructed to follow up, but has been unable to do so. Patient states that the pain has continued, she feels like the swelling is worse, especially over the right lateral aspect. Denies any new injury to the knee. States she has been taking anti-inflammatories and occasionally using the ramin wrap. She denies any redness to the leg, pain or swelling in the calf, fever, or chills. Denies any recent long car rides, use of hormonal oral medications, or history of DVT. Patient denies any headache, neck pain, back pain, chest pain, shortness of breath, dizziness, weakness, abdominal pain, nausea, vomiting, or difficulties with bowel movements or urination. - Related Data Home Medications Medication Instructions Recorded Confirmed Ergocalciferol [Vitamin D2] 50,000 unit PO TH 06/06/19 12/12/19 Previous Rx's Medication Instructions Recorded Ibuprofen [Motrin] 600 mg PO Q8HR PRN #30 tab 06/06/19 Amoxicillin/Potassium Clav 1 tab PO Q12HR #20 tab 12/12/19 [Augmentin 875-125 Tablet] Allergies Allergy/AdvReac Type Severity Reaction Status Date / Time No Known Allergies Allergy Verified 05/13/20 18:29 Review of Systems ROS Statement: Those systems with pertinent positive or pertinent negative responses have been documented in the HPI. ROS Other: All systems not noted in ROS Statement are negative. Past Medical History Past Medical History: Osteoarthritis (OA), Seizure Disorder Additional Past Medical History / Comment(s): Hx Ovarian Cyst, chronic back and neck pain, had one time seizure about 5 yrs ago-none since & unknown cause per pt., History of Any Multi-Drug Resistant Organisms: None Reported Past Surgical History: Orthopedic Surgery, Tubal Ligation Additional Past Surgical History / Comment(s): Cyst removed from bilateral wrists, bones taken out of right wrist, tennis elbow release right elbow. Past Anesthesia/Blood Transfusion Reactions: No Reported Reaction Past Psychological History: Depression Smoking Status: Current every day smoker Past Alcohol Use History: None Reported Past Drug Use History: None Reported - Past Family History Mother Family Medical History: No Reported History General Exam Limitations: no limitations General appearance: alert, in no apparent distress, other (This is a well- developed, well-nourished adult female patient in no acute distress. Vital signs upon presentation are temperature 98.2F, pulse 88, respirations 16, blood pressure 145/78, pulse ox 98% on room air.) Eye exam: Present: normal appearance, PERRL, EOMI. Absent: scleral icterus, conjunctival injection, periorbital swelling ENT exam: Present: normal exam, normal oropharynx, mucous membranes moist Respiratory exam: Present: normal lung sounds bilaterally. Absent: respiratory distress, wheezes, rales, rhonchi, stridor Cardiovascular Exam: Present: regular rate, normal rhythm, normal heart sounds. Absent: systolic murmur, diastolic murmur, rubs, gallop, clicks Extremities exam: Present: full ROM, tenderness (Right lateral knee), normal capillary refill, other (There is mild soft tissue swelling over the right lateral knee. No erythema. No pain with valgus or varus maneuvers. Full ROM intact including full flexion and extension. Skin is otherwise pink, warm, dry. Cap refills less than 3 seconds. Pedal and posttibial pulses are 2+ and equal bilaterally.). Absent: normal inspection, pedal edema, joint swelling, calf tenderness Neurological exam: Present: alert, oriented X3, CN II-XII intact Psychiatric exam: Present: normal affect, normal mood Skin exam: Present: warm, dry, intact, normal color. Absent: rash Course Vital Signs 05/13/20 05/13/20 18:25 19:45 Temperature 98.2 F 97 F L Pulse Rate 88 77 Respiratory 16 18 Rate Blood Pressure 145/78 129/79 O2 Sat by Pulse 98 98 Oximetry Medical Decision Making - Medical Decision Making 49 year-old female patient presents to the emergency department today for evaluation of right knee pain. This pain has been going on for quite some time. Physical examination does reveal mild soft tissue swelling. There is no overlying erythema. She is afebrile. There is no injury. She was seen and evaluated here a couple of weeks ago for similar symptoms and she did have x-ray which was unremarkable. She has not yet been able to follow-up. We did discuss giving a dose of Toradol for pain relief and she'll be discharged to continue her home regimen of ibuprofen and Ramin wrap. She is instructed to continue calling her primary care physician for possible cancellations. Return parameters were discussed in detail. She verbalizes understanding and agrees with this plan Disposition Clinical Impression: Chronic pain of right knee Disposition: HOME SELF-CARE Condition: Good Instructions (If sedation given, give patient instructions): Knee Pain (ED) Additional Instructions: Rest the knee. Use Ramin wrap for comfort and support. Take Tylenol and Motrin every 6 hours for pain control. Follow-up through primary care physician for recheck as soon as possible. Return to the emergency department immediately for any new, worsening, or concerning symptoms. Is patient prescribed a controlled substance at d/c from ED?: No Referrals: Chiara Huerta MD [Primary Care Provider] - 1-2 days Time of Disposition: 19:27
[2020-05-13 19:46] VITALS: BP 129/79; PULSE 77; RESP 18; TEMP 97
== END 2020-05-13 19:46 | disposition home or self-care (01) ==
LOC: EC 18:07
DX: G89.29 Other chronic pain (principal); M25.561 Pain in right knee; M79.89 Other specified soft tissue disorders; F17.200 Nicotine dependence, unspecified, uncomplicated
CPT/HCPCS: 99283; 96372; J1885

== ENCOUNTER 2021-11-03 09:20 | Emergency (ER) | payer BC, OTHER ==
--- NOTE | 2021-11-03 09:50 | ED ---
General Adult HPI - General Chief complaint: Extremity Problem,Nontraumatic Stated complaint: Lt Wrist Pain Time Seen by Provider: 11/03/21 09:30 Source: patient, RN notes reviewed, old records reviewed Mode of arrival: ambulatory Limitations: no limitations - History of Present Illness Initial comments: This is a 51-year-old female who presents emergency Department complaining of right wrist pain. Patient states in the middle night she woke up and went to reach for her phone and hurt a snap in her wrist and ever since then it has been causing her pain to touch on the distal aspect of her wrist on the radial side. Patient states this occurred 2 days ago patient states she's been wearing a brace and taking some Motrin for but it continues to hurt so she thought she come in and have it evaluated. Patient denies any direct trauma to the area or any heavy lifting. Denies any hand pain or elbow pain patient denies numbness or weakness - Related Data Home Medications Medication Instructions Recorded Confirmed Ergocalciferol [Vitamin D2] 50,000 unit PO TH 06/06/19 12/12/19 Previous Rx's Medication Instructions Recorded Ibuprofen [Motrin] 600 mg PO Q8HR PRN #30 tab 06/06/19 Amoxicillin/Potassium Clav 1 tab PO Q12HR #20 tab 12/12/19 [Augmentin 875-125 Tablet] Ibuprofen [Motrin] 600 mg PO Q6HR PRN #20 tab 11/03/21 Allergies Allergy/AdvReac Type Severity Reaction Status Date / Time No Known Allergies Allergy Verified 11/03/21 09:34 Review of Systems ROS Statement: Those systems with pertinent positive or pertinent negative responses have been documented in the HPI. ROS Other: All systems not noted in ROS Statement are negative. Past Medical History Past Medical History: Osteoarthritis (OA), Seizure Disorder Additional Past Medical History / Comment(s): Hx Ovarian Cyst, chronic back and neck pain, had one time seizure about 5 yrs ago-none since & unknown cause per pt., History of Any Multi-Drug Resistant Organisms: None Reported Past Surgical History: Orthopedic Surgery, Tubal Ligation Additional Past Surgical History / Comment(s): Cyst removed from bilateral wrists, bones taken out of right wrist, tennis elbow release right elbow. Past Anesthesia/Blood Transfusion Reactions: No Reported Reaction Past Psychological History: Depression Smoking Status: Current every day smoker Past Alcohol Use History: None Reported Past Drug Use History: None Reported - Past Family History Mother Family Medical History: No Reported History General Exam - General Exam Comments Initial Comments: GENERAL Patient is well-developed and well-nourished. Patient is in mild distress. EYES Patient's pupils are equal and round. Extraocular motion is intact SKIN Unremarkable NEURO The patient is alert and oriented 3 PYSCH Patient has normal interpersonal interactions. MUSCULOSKELETAL Patient has mild tenderness on the distal radial aspect of her wrist is no redness or swelling. Patient has full range of motion of the wrist but does hurt to flex the wrist. No scaphoid tenderness. Limitations: no limitations Course Vital Signs 11/03/21 09:29 Temperature 98.5 F Pulse Rate 92 Respiratory 18 Rate Blood Pressure 161/90 O2 Sat by Pulse 99 Oximetry Medical Decision Making - Medical Decision Making Wrist x-ray shows no acute injury. Disposition Clinical Impression: Wrist sprain Disposition: HOME SELF-CARE Instructions (If sedation given, give patient instructions): Wrist Sprain (ED) Prescriptions: Ibuprofen [Motrin] 600 mg PO Q6HR PRN #20 tab PRN Reason: For pain Is patient prescribed a controlled substance at d/c from ED?: No Referrals: None,Stated [Primary Care Provider] - 1-2 days Time of Disposition: 10:41
--- NOTE | 2021-11-03 10:06 | XR ---
EXAMINATION TYPE: XR wrist complete LT DATE OF EXAM: 11/03/2021 CLINICAL HISTORY: Pain and swelling. TECHNIQUE: Frontal, lateral and oblique images of the left wrist are obtained. 4 view scaphoid view is performed. COMPARISON: Prior left wrist x-ray February 17, 2013 FINDINGS: There is no acute fracture/dislocation evident in the left wrist. Mild to moderate narrowi ng and spurring at the base of first metacarpal. The overlying soft tissue appears unremarkable. IMPRESSION: As above.
[2021-11-03 10:51] VITALS: BP 157/87; PULSE 90; RESP 16; TEMP 98
== END 2021-11-03 10:50 | disposition home or self-care (01) ==
LOC: EC 09:20
DX: S63.502A Unspecified sprain of left wrist, initial encounter (principal); F17.200 Nicotine dependence, unspecified, uncomplicated; X58.XXXA Exposure to other specified factors, initial encounter
CPT/HCPCS: 99283

== ENCOUNTER → 2022-05-07 | Outpatient (CLI) | payer OTHER ==
--- NOTE | 2022-05-07 14:55 | MR ---
EXAMINATION TYPE: MR lumbar spine wo con DATE OF EXAM: 05/07/2022 COMPARISON: CT abdomen and pelvis 01/04/2018. HISTORY: Lower back pain, RLE radiculopathy. TECHNIQUE: Multiplanar, multisequence images of the lumbar spine were acquired without IV contrast. FINDINGS: Lumbar segments are intact. No paraspinal masses are identified. Conus medullaris has a normal appe arance. Grade 1 anterolisthesis of L4 on L5 without evidence of pars defects. No significant disc ericka iccation. Diffuse low T1 signal within the vertebral bodies. L1-L2: No herniation, protrusion or disc bulging. No canal stenosis is present. Foramina are patent bilaterally. L2-L3: No herniation, protrusion or disc bulging. No canal stenosis is present. Foramina are patent bilaterally. L3-L4: No herniation, protrusion or disc bulging. No canal stenosis is present. Foramina are patent bilaterally. L4-L5: Broad-based disc bulge with ligamentum flavum buckling and facet arthropathy contributing to m oderate spinal canal stenosis. The neuroforamina are patent bilaterally. L5-S1: No disc herniation. Facet arthropathy with ligament flavum buckling without significant spinal canal stenosis. The neural foramina are patent bilaterally. IMPRESSION: 1. No disc herniation. 2. L4-L5 degenerative disc disease with moderate spinal canal stenosis. 3. Diffuse low T1 signal within the vertebral bodies which may be related to myelofibrosis versus ane singh versus tobacco use.
== END | disposition home or self-care (01) ==
LOC: RADMRIMAIN 13:53
PROVIDERS: ATTEND Orthopaedic Surgery Orthopaedic Surgery of the Spine
DX: M54.51 Vertebrogenic low back pain (principal); M79.18 Myalgia, other site; M51.34 Other intervertebral disc degeneration, thoracic region; M41.86 Other forms of scoliosis, lumbar region; M43.16 Spondylolisthesis, lumbar region; M47.817 Spondylosis without myelopathy or radiculopathy, lumbosacral region; M51.37 Other intervertebral disc degeneration, lumbosacral region
CPT/HCPCS: 72148

== ENCOUNTER 2022-05-08 05:49 | Emergency (ER) | payer OTHER ==
[2022-05-08 06:13] VITALS: BP 145/100; PULSE 91; RESP 18; TEMP 98.1
[2022-05-08] MEDS ORDERED: HYDROcodone/APAP 7.5-325MG 1 EACH TAB PO ONE (06:29)
--- NOTE | 2022-05-08 06:30 | ED ---
Back Pain HPI - General Chief Complaint: Back Pain/Injury Stated Complaint: Back Pain Time Seen by Provider: 05/08/22 06:01 Source: patient, RN notes reviewed Limitations: no limitations - History of Present Illness Initial Comments: 51-year-old female presents emergency Department with chief complaint of back pain. This chronic in nature did have an MRI yesterday. Patient states she had increasing pain over nighttime and a tolerated. Patient is currently seeing Dr. Murrell. Patient denies any bowel bladder incontinence or retention or saddle anesthesias. Patient states she is currently on tramadol. Patient denies any fevers or chills no abdominal pain no dysuria no flank pain. Patient states does radiate down her right leg. - Related Data Home Medications Medication Instructions Recorded Confirmed Ergocalciferol [Vitamin D2] 50,000 unit PO TH 06/06/19 12/12/19 Previous Rx's Medication Instructions Recorded Ibuprofen [Motrin] 600 mg PO Q8HR PRN #30 tab 06/06/19 Amoxicillin/Potassium Clav 1 tab PO Q12HR #20 tab 12/12/19 [Augmentin 875-125 Tablet] Ibuprofen [Motrin] 600 mg PO Q6HR PRN #20 tab 11/03/21 Allergies Allergy/AdvReac Type Severity Reaction Status Date / Time No Known Allergies Allergy Verified 05/08/22 06:13 Review of Systems ROS Statement: Those systems with pertinent positive or pertinent negative responses have been documented in the HPI. ROS Other: All systems not noted in ROS Statement are negative. Past Medical History Past Medical History: Osteoarthritis (OA), Seizure Disorder Additional Past Medical History / Comment(s): Hx Ovarian Cyst, chronic back and neck pain, had one time seizure about 5 yrs ago-none since & unknown cause per pt., History of Any Multi-Drug Resistant Organisms: None Reported Past Surgical History: Orthopedic Surgery, Tubal Ligation Additional Past Surgical History / Comment(s): Cyst removed from bilateral wrists, bones taken out of right wrist, tennis elbow release right elbow. Past Anesthesia/Blood Transfusion Reactions: No Reported Reaction Past Psychological History: Depression Smoking Status: Current every day smoker Past Alcohol Use History: None Reported Past Drug Use History: None Reported - Past Family History Mother Family Medical History: No Reported History General Exam Limitations: no limitations General appearance: alert, in no apparent distress Head exam: Present: atraumatic, normocephalic, normal inspection Eye exam: Present: normal appearance, PERRL, EOMI. Absent: scleral icterus, conjunctival injection, periorbital swelling Respiratory exam: Present: normal lung sounds bilaterally. Absent: respiratory distress, wheezes, rales, rhonchi, stridor Cardiovascular Exam: Present: regular rate, normal rhythm, normal heart sounds. Absent: systolic murmur, diastolic murmur, rubs, gallop, clicks GI/Abdominal exam: Present: soft, normal bowel sounds. Absent: distended, tenderness, guarding, rebound, rigid Extremities exam: Present: normal inspection, full ROM, normal capillary refill. Absent: tenderness, pedal edema, joint swelling, calf tenderness Back exam: Present: normal inspection, full ROM, tenderness, paraspinal tenderness. Absent: vertebral tenderness Neurological exam: Present: alert, oriented X3, CN II-XII intact, reflexes normal. Absent: motor sensory deficit Course Vital Signs 05/08/22 06:11 Temperature 98.1 F Pulse Rate 91 Respiratory 18 Rate Blood Pressure 145/100 O2 Sat by Pulse 95 Oximetry Medical Decision Making - Medical Decision Making Patient has chronic back pain MRI was reviewed showing some mild spinal stenosis, decreased uptake most likely secondary to tobacco use though other considerations. Patient does have follow-up on Friday with orthopedics patient has no red flag symptoms. Disposition Clinical Impression: Back pain Disposition: HOME SELF-CARE Instructions (If sedation given, give patient instructions): Acute Low Back Pain (ED) Additional Instructions: Please return to the Emergency Department if symptoms worsen or any other concerns. Is patient prescribed a controlled substance at d/c from ED?: No Referrals: None,Stated [Primary Care Provider] - 1-2 days Time of Disposition: 06:30
== END 2022-05-08 07:24 | disposition home or self-care (01) ==
LOC: EC 05:49
DX: M54.50 Low back pain, unspecified (principal); F17.200 Nicotine dependence, unspecified, uncomplicated; Z79.1 Long term (current) use of non-steroidal anti-inflammatories (NSAID)
CPT/HCPCS: 99283

== ENCOUNTER 2022-07-26 16:24 | Emergency (ER) | payer OTHER ==
[2022-07-26 16:42] VITALS: BP 122/74; PULSE 93; RESP 18; TEMP 98
--- NOTE | 2022-07-26 17:39 | XR ---
EXAMINATION TYPE: XR knee complete RT DATE OF EXAM: 07/26/2022 COMPARISON: 04/30/2020 HISTORY: 51-year-old female pain after trauma, injury TECHNIQUE: 3 views FINDINGS: Progressive mild joint space narrowing medial compartment. Some progression in medial compartment deg enerative spurring. Some progression in degenerative spurring in the patellofemoral compartment as we ll. There is a [id number] knee joint effusion. Extensor mechanism appears intact. Possible [place] y subtle vertically oriented lucency projecting at the tibial plateau on the lateral view. IMPRESSION: 1. Very subtle vertically oriented lucency projecting at the proximal tibia on the lateral view. Unab le to exclude an underlying subtle nondisplaced tibial plateau fracture given the presence of a small to moderate joint effusion. Clinically correlate. 2. Medial and patellofemoral compartmental OA has progressed from 2019.
--- NOTE | 2022-07-26 17:41 | ED ---
Lower Extremity Injury HPI - General Chief Complaint: Extremity Injury, Lower Stated Complaint: right knee pain Time Seen by Provider: 07/26/22 16:45 Source: patient Mode of arrival: ambulatory Limitations: no limitations - History of Present Illness Initial Comments: 51-year-old female past medical history of osteoarthritis, seizure disorder presents to the emergency department with right knee pain. States that yesterday she went to pick something up. When she bent down she can feel a popping on the inside of her left knee. She was able to weight bear however over the course of the day today she has had significant pain and can no longer stand. She denies previous surgeries to the right knee. There is minimal swelling. Denies any ankle or hip pain. She takes [place] for chronic pain. No other alleviating, profile saw operator modifying factors - Related Data Home Medications Medication Instructions Recorded Confirmed Ergocalciferol [Vitamin D2] 50,000 unit PO TH 06/06/19 12/12/19 Previous Rx's Medication Instructions Recorded Ibuprofen [Motrin] 600 mg PO Q8HR PRN #30 tab 06/06/19 Amoxicillin/Potassium Clav 1 tab PO Q12HR #20 tab 12/12/19 [Augmentin 875-125 Tablet] Ibuprofen [Motrin] 600 mg PO Q6HR PRN #20 tab 11/03/21 Allergies Allergy/AdvReac Type Severity Reaction Status Date / Time No Known Allergies Allergy Verified 07/26/22 16:42 Review of Systems ROS Statement: Those systems with pertinent positive or pertinent negative responses have been documented in the HPI. ROS Other: All systems not noted in ROS Statement are negative. Past Medical History Past Medical History: Osteoarthritis (OA), Seizure Disorder Additional Past Medical History / Comment(s): Hx Ovarian Cyst, chronic back and neck pain, had one time seizure about 5 yrs ago-none since & unknown cause per pt., History of Any Multi-Drug Resistant Organisms: None Reported Past Surgical History: Orthopedic Surgery, Tubal Ligation Additional Past Surgical History / Comment(s): Cyst removed from bilateral wrists, bones taken out of right wrist, tennis elbow release right elbow. Past Anesthesia/Blood Transfusion Reactions: No Reported Reaction Past Psychological History: Depression Smoking Status: Current every day smoker Past Alcohol Use History: None Reported Past Drug Use History: None Reported - Past Family History Mother Family Medical History: No Reported History General Exam Limitations: no limitations General appearance: alert, in no apparent distress Extremities exam: Present: tenderness (To the medial aspect of the right knee at the joint line. Mild associated knee swelling. No overlying redness or warmth. Patient has 5 out of 5 muscle strength of the knee extensors and flexors. 2+ DP and PT pulses. Intact sensation over the bilateral lower extremities.) Back exam: Present: normal inspection Neurological exam: Present: alert, oriented X3, CN II-XII intact Psychiatric exam: Present: normal affect, normal mood Skin exam: Present: warm, dry, intact, normal color. Absent: rash Course Vital Signs 07/26/22 16:40 Temperature 98 F Pulse Rate 93 Respiratory 18 Rate Blood Pressure 122/74 O2 Sat by Pulse 99 Oximetry Medical Decision Making - Medical Decision Making Arrival patient was placed in room 20. A thorough history and physical exam was performed. Patient is offered him in for pain control however refused. Pat ient is sent for x-ray of her right knee which demonstrates a very subtle vertical oriented lucency projecting at the proximal tibia on the lateral view. Unable to exclude an underlying subtle nondisplaced tibial plateau fracture given the presence of a small to moderate joint effusion. Patient's pain does not appear to be clinically in the area of the lucency however I did discuss these results with the patient. Informed her that I would like to place her in a knee immobilizer. Crutches are ordered. Patient is to ambulate with the crutches and do not weight-bear to the right lower extremity. She is to take her [place] for pain control. Follow up with the orthopedic associates that she has seen them previously in the past and repeat x-ray in 7-10 days should her pain persists. Until then the patient should rest, ice and elevate the extremity. She was agreeable to this plan and discharged home in stable condition Disposition Clinical Impression: Right knee pain, Tibial plateau fracture, right Disposition: HOME SELF-CARE Condition: Stable Instructions (If sedation given, give patient instructions): Knee Pain (ED) Additional Instructions: Wear the knee brace. Ambulate with the crutches and do not weight bear on the right leg. Take your [place] for pain control. Follow up with the orthopedic office and have x-rays repeated in 7-10 days to determine whether there is a fracture. Return for any new or worsening symptoms Is patient prescribed a controlled substance at d/c from ED?: No Referrals: Shannan,Suleiman, MD [Primary Care Provider] - 1-2 days Jacque Garrett DO [Doctor of Osteopathic Medicine] - 1-2 days Time of Disposition: 18:14
== END 2022-07-26 18:23 | disposition home or self-care (01) ==
LOC: EC 16:24
DX: S82.141A Displaced bicondylar fracture of right tibia, initial encounter for closed fracture (principal); M19.90 Unspecified osteoarthritis, unspecified site; G40.909 Epilepsy, unspecified, not intractable, without status epilepticus; F32.A Depression, unspecified; F17.200 Nicotine dependence, unspecified, uncomplicated; X50.9XXA Other and unspecified overexertion or strenuous movements or postures, initial encounter
CPT/HCPCS: 99283

== ENCOUNTER → 2022-07-26 | Outpatient (CLI) | payer OTHER ==
[2022-07-26 08:33] LABS: INR 0.9 (<1.2); Partial Thromboplastin Time 25.6 sec (22.0-30.0); Prothrombin Time 9.7 sec (9.0-12.0)
[2022-07-26 13:21] LABS: HCT 42.8 % (37.2-46.3); HGB 13.8 g/dL (12.0-15.0); MCH 30.5 pg (27.0-32.0); MCHC 32.2 g/dL (32.0-37.0); MCV 94.7 fL (80.0-97.0); Mean Platelet Volume 9.4 fL (9.5-12.2); NRBC Per 100 WBC 0 /100 WBCS (0.0-0.0); Platelet Count 446 X 10*3/uL (140-440); RBC 4.52 X 10*6/uL (4.10-5.20); RDW 13.7 % (11.5-14.5); WBC 10.83 X 10*3/uL (4.50-10.00)
[2022-07-26 14:01] LABS: African American GFR (CKD) 97.7 (60.0-200.0); Albumin 4.7 g/dL (3.8-4.9); Albumin/Globulin Ratio 1.83 (1.60-3.17); Anion Gap 9.4 mmol/L (10.00-18.00); BUN/Creat Ratio 18.34 Ratio (12.00-20.00); Carbon Dioxide 27.8 mmol/L (20.0-27.5); Globulin 2.5 g/dL (1.6-3.3); Non-African American GFR(CKD) 84.3 (60.0-200.0); Potassium 4.3 mmol/L (3.5-5.5); Total Bilirubin 0.2 mg/dL (0.30-1.20); Total Protein 7.2 g/dL (6.2-8.2)
[2022-07-26 14:33] LABS: Basophils # (A) 0.04 X 10*3/uL (0.00-0.10); Basophils % (A) 0.4 %; Eosinophils % (A) 4.6 %; Immature Grans, Automated 0.3 %; Lymphocytes # (A) 5.04 X 10*3/uL (0.90-5.00); Lymphocytes % (A) 46.5 %; Monocytes # (A) 0.78 X 10*3/uL (0.20-1.00); Monocytes % (A) 7.2 %; Neutrophils # (A) 4.44 X 10*3/uL (1.80-7.70); RBC Morphology NORMAL
== END | disposition home or self-care (01) ==
LOC: LABPAT 07:08
PROVIDERS: ATTEND Orthopaedic Surgery Orthopaedic Surgery of the Spine
DX: Z01.812 Encounter for preprocedural laboratory examination (principal); M43.10 Spondylolisthesis, site unspecified
CPT/HCPCS: 80053; 85025; 85610; 85730

== ENCOUNTER 2022-08-07 10:14 | Observation (INO) | payer OTHER ==
[2022-08-02 15:34] VITALS: BMI 35.6
[~2022-08-07 10:14] MED LIST changes: -DEXAMETHASONE SOD PHOSPHATE 10 MG/ML 1 ML VIAL IV ONE; +DEXAMETHASONE SOD PHOSPHATE 4 MG/ML 1 ML VIAL IV ONE; -HYDROmorphone 0.5 MG/0.5 ML SYRINGE IVP PRN; -LACTATED RINGERS 1,000 ML IV SCH; -MIDAZOLAM 2 MG/2 ML VIAL IV PRN; -Pre Op ABX Message 1 EACH MISC MISCELLANE ONE; -SCOPOLAMINE 1.5MG/72HR PATCH TRANSDERM ONE; +ceFAZolin 1,000 MG in SODIUM CHLORIDE 0.9% IRRIGATIO 1,000 ML IRRIGATION PRN
[2022-08-07] MEDS: LIDOCAINE 1% (10MG/ML) FOR IV START INTRADERMA PRN ×2 (11:00→11:15)
[2022-08-07] MEDS: LACTATED RINGERS 1,000 ML IV SCH ×2 (11:00→11:15)
[2022-08-07] MEDS ORDERED: MIDAZOLAM 2 MG/2 ML VIAL IV ONE (11:22)
[2022-08-07 11:46] LABS: Basophils % (A) 0 %; Eosinophils # (A) 0.3 k/uL (0-0.7); Eosinophils % (A) 4 %; HCT 40.3 % (34.0-46.0); HGB 13.9 gm/dL (11.4-16.0); Lymphocytes # (A) 1.1 k/uL (1.0-4.8); Lymphocytes % (A) 15 %; MCH 31.3 pg (25.0-35.0); MCHC 34.5 g/dL (31.0-37.0); MCV 90.7 fL (80.0-100.0); Mean Platelet Volume 7.5; Monocytes # (A) 0.6 k/uL (0-1.0); Monocytes % (A) 8 %; Neutrophils # (A) 5.3 k/uL (1.3-7.7); Neutrophils % (A) 71 %; Platelet Count 387 k/uL (150-450); RBC 4.45 m/uL (3.80-5.40); RDW 12.5 % (11.5-15.5); WBC 7.5 k/uL (3.8-10.6)
[2022-08-07] MEDS ORDERED: ROCURONIUM 10 MG/ML (5 ML VIAL) IV ONE (12:50)
[2022-08-07] MEDS ORDERED: PROPOFOL 10 MG/ML 20 ML VIAL IV ONE (12:50)
[2022-08-07] MEDS ORDERED: fentaNYL (PF) 50 MCG/ML 2 ML AMP ONE (12:50)
[2022-08-07] MEDS ORDERED: SUCCINYLCHOLINE CHLORIDE 200 MG/10 ML VIAL IV ONE (12:50)
[2022-08-07] MEDS ORDERED: HYDROmorphone (PF) 1 MG/ML ONE (12:50)
[2022-08-07] MEDS ORDERED: NEOSTIGMINE 1 MG/ML 10 ML VIAL ONE (12:50)
[2022-08-07] MEDS ORDERED: GLYCOPYRROLATE 0.2 MG/ML 2 ML VIAL ONE (12:50)
[2022-08-07] MEDS ORDERED: KETAMINE 10 MG/ML 20 ML VIAL ONE (12:50)
[2022-08-07] MEDS ORDERED: MIDAZOLAM 2 MG/2 ML VIAL ONE (12:50)
[2022-08-07] MEDS ORDERED: PHENYLEPHRINE-0.9% NACL SYG 1,000 MCG/10 ML SYRINGE ONE (12:50)
[2022-08-07] MEDS ORDERED: BUPIVACAINE (PF) 0.5% 30 ML VIAL SQ ONE (13:34)
[2022-08-07] MEDS ORDERED: LIDOCAINE 2%-EPI 1:100,000 20 ML VIAL SQ ONE (13:34)
[2022-08-07] MEDS ORDERED: GELATIN SPONGE,ABSORB (LARGE) 1 EACH SPONGE MISCELLANE ONE (13:45)
[2022-08-07] MEDS ORDERED: THROMBIN (BOVINE) 5,000 UNIT VIAL MISCELLANE ONE (13:45)
[2022-08-07] MEDS ORDERED: LACTATED RINGERS 1,000 ML IV ONE (14:18)
[2022-08-07] MEDS ORDERED: MAGNESIUM HYDROXIDE 2,400 MG/10 ML CUP PO PRN (16:08)
[2022-08-07] MEDS ORDERED: BENZOCAINE/MENTHOL LOZENG 1 EACH LOZENGE MUCOUS MEM PRN (16:08)
[2022-08-07] MEDS ORDERED: HYDROmorphone 0.5 MG/0.5 ML SYRINGE IVP PRN (16:08)
[2022-08-07] MEDS ORDERED: HYDROcodone/APAP 5-325MG 1 EACH TAB PO PRN (16:11)
--- NOTE | 2022-08-07 16:14 | P.OP ---
Date of Procedure: 08/07/22 Preoperative Diagnosis: Spondylolisthesis L4 5, spinal stenosis L4 5, degenerative disc disease L4 5, lower extremity radiculopathy, facet arthrosis Postoperative Diagnosis: Same Anesthesia: GETA Pathology: none sent Condition: stable Disposition: PACU Description of Procedure: DESCRIPTION OF PROCEDURE(S): BRIEF OPERATIVE NOTE Preoperative Diagnosis: Spondylolisthesis L4 5, spinal stenosis L4 5, degenerative disc disease L4 5, lower extremity radiculopathy, facet arthrosis Postoperative Diagnosis: Same Procedure: Laminectomy and decompression L4 [address] navigation aided Minimally invasive Posterior lateral decompression and facet fusion L4 5 Minimally invasive Transforaminal lumbar interbody fusion for a 360 fusion L4 5 Discectomy for decompression L4 5 Placement of interbody graft L4 5 Use of computer navigation for fusion L4 5 Local autogenous bone grafting Aspiration of bone marrow from the vertebral body pedicle L4 on the right Use of bone graft extenders Surgeon: Dr. Murrell Pointer Helper: Girma RIZO who is present throughout the entire the case persistence during positioning, dissection, exposure, visualization, and all crucial elements of the case as well as closure. Anesthesia: General anesthesia per Estimated blood loss: Approximately 150 mL Complications: None apparent Components implanted: K2M minimally invasive Gardiner pedicle screw system withscrews measuring 6.5 mm in diameter to rods one [place] interbody cage with 10 mL of osteo amp bio4 bone graft substitute and 30 mL of the BX bone fibers to supplement the local autogenous bone graft and bone marrow aspirate Disposition: To recovery room in good stable condition. OPERATIVE INDICATIONS The patient has had severe issues at their lower extremity in her lower back over the past several years with significant worsening over the past several months. Over the past few months the patient had pain at their back and their lower extremities. The patient is having severe radicular symptoms at their lower extremity with weakness. The patient is having significant pain in their back. They are unable to obtain any comfort. We did aggressive conservative treatment with medications therapy and interventional pain management however thery were not having any relief. The patient also showed evidence of a listhesis with some dynamic instability at L4 5. The patient has been through conservative treatment. We discussed various treatment options including surgery, and the patient wishes to proceed with surgery We discussed the risk, patient's alternatives and benefits of surgery including but not limited to, risk of bleeding risk of infection, risk of need for further surgery, risk of decreased, loss of motion, muscle function, malunion nonunion, hardware failure, nerve damage, paralysis, heart attack, blindness and . They understood issues with the current pandemic and the possibility of exposure. OPERATIVE SUMMARY After discussing all the risks, patient alternatives and benefits at length, the patient elected to proceed with surgical intervention, signed informed consent, and presented for their procedure. The patient was seen and examined in the preoperative holding area and the surgical site was marked. The patient was given antibiotics and brought to the operating room. The patient was sedated and intubated by anesthesia in standard fashion. The patient was positioned on to the operating room table in a prone position on the appropriate frame which was well-padded and well molded. We were careful to pad any bony prominences and pressure points. We were careful to maintain the patient's cervical spine and good neutral alignment and position throughout. The patient was prepped and draped in a normal standard fashion. An appropriate timeout and keystone protocol performed. We were able to proceed with the surgery. The local wound area was infiltrated with local anesthetic. Over the right iliac crest I was able to make small stab incisions and establish a guidepin screw fixation to the iliac crest 2. I was able place the computer referencing device over the guidepins to establish an appropriate reference point for the Ziem CT navigation. We then were able to place patient in an appropriate drape and do a navigation spin for visualization and 3-D reconstruction of the lumbar spine. I was able utilize C-arm guidance and navigation to establish appropriate position over the pedicles bilaterally at the appropriate levels at L4 5 . With the appropriate levels confirmed was able to make small incisions over the appropriate pedicle sites bilaterally. Utilizing the computer navigation device I was able to establish bony landmarks at the right iliac crest for a bony reference point for the navigation device. I was able to establish a Jamshidi needle over the lateral aspect of the pedicle and advanced the trocar into the pedicle being careful not to breech superiorly inferiorly medially or laterally using computer navigation device. Position was confirmed regularly with AP and lateral images on C-arm and with the computer navigation device at the appropriate levels bilaterally. I was able to establish the trocar into the pedicle appropriately into the posterior aspect of the vertebral body bilaterally at the appropriate levels. This was done at each of the pedicle positions and each of the vertebrae. At the superior vertebrae of L4 on the right I was able to take approximately 25 mL of bone aspiration for use later in the case to supplement the allograft and autograft bone. I was able place the guidewire into the trocar and into the vertebral body appropriately under C-arm guidance. Dissection was taken down over the wire to the appropriate starting position for the screw placed. The appropriate length screw was chosen, threaded over the guidewire and screwed appropriately into the pedicle and vertebral body under C-arm guidance in excellent alignment and position with good bony purchase. This is done at each of the screw sites at the appropriate levels.. With the screws intact I extended the incision to connect the screw hole sites on the most symptomatic side on the right of L4 5. I dissected down to establish access over the pars and lamina to the base of the spinous process. I was able to expose the facet joint. The capsule the facet was taken down and showed some facet arthrosis at the joint. I was able to use a combination of curettes and Kerrison rongeurs and a high-speed drill to take down the facet joint and do a facetectomy. I was able get excellent foraminal decompression and central decompression with undermining across midline to perform a laminectomy centrally and contralaterally. As able get good central decompression. The ligamentum flavum was taken down to further decompress centrally and at bilateral neural foramen. I was able to expose the disc space and visualize the traversing nerve root. Note was made of some disc protrusion and disc herniation that was abutting the traversing nerve root at the level causing further compression of the nerve root. I was able to establish a annulotomy at the appropriate level protecting soft tissue and neural stru ctures. Note was made of some disc desiccation at the disc. I performed a complete discectomy with accommodation of curettes and rasps and scrapers. I was able get good endplate preparation at the disc space. I sized for the appropriate size interbody spacer protecting the soft tissue and neural structures. The wound was copiously irrigated and suctioned dry. There is no evidence of any dural tear or leak. I was able to pack the disc space with local autogenous bone graft as well as a small amount of bone graft which was also placed into the interbody cage itself. Protecting the soft tissue structures and neural structures I was able place the interbody cage in good alignment and good position with good fit and fill at the interbody space. Position was confirmed with C-arm guidance. Good hemostasis maintained. There is no evidence of any dural tear or leak. The wound was irrigated and suctioned dry. With the hardware intact, intraoperative C-arm imaging was again taken which showed good alignment and position of the hardware at the appropriate levels. We were then able to measure, contour and place the rods and appropriate hardware bilaterally. I was able to place capcrews, tighten them down, and torque them with the torque screwdriver appropriately. With this intact I was able to place the local autogenous bone graft with additional bone graft enhancer as necessary into the posterior lateral gutters over the decorticated transverse processes and facet joints on the contralateral side. Imaging showed good reduction of the listhesis with well-placed internal fixation. The remainder of the bone graft was placed over the facet joint on the contralateral side after taking down the facet joint capsule. With the bone graft intact, a stable construct, and good decompression at the appropriate levels, we were able to proceed with closure. Good hemostasis was maintained. There is no evidence of dural tear or leak. The fascia was closed for a watertight closure. he subcuticular tissue was closed with absorbable suture. The wound was cleaned and dried and dressed with the appropriate dressing. The drapes were broken down. The patient was gently rolled back onto their hospital bed being careful to maintain their cervical spine and good neutral alignment and position. They were woken up by anesthesia, extubated, and brought to the recovery room in good stable condition. The patient will be admitted to the hospital for appropriate postoperative care, medical management and monitoring. We will continue to follow them closely about the postoperative course.
--- NOTE | 2022-08-07 16:14 | FL ---
EXAMINATION TYPE: FL guidance operating room DATE OF EXAM: 08/07/2022 HISTORY: Fluoroscopy time 29 seconds of fluoroscopy provided. IMPRESSION: 1. Fluoroscopy time. YESICAD
[2022-08-07] MEDS: HYDROmorphone 0.5 MG/0.5 ML SYRINGE IVP PRN ×3 (16:23→16:59)
[2022-08-07] MEDS: SODIUM CHLORIDE 0.9% 1,000 ML IV SCH (17:32)
[2022-08-07] MEDS: HYDROmorphone 1 MG/ML 1 ML SYRINGE IVP PRN ×2 (19:07→23:43)
[2022-08-07] MEDS: CYCLOBENZAPRINE 10 MG TAB PO PRN (20:07)
[2022-08-07] MEDS: HYDROcodone/APAP 5-325MG 1 EACH TAB PO PRN (21:37)
[2022-08-07] MEDS: ONDANSETRON 4 MG/2 ML VIAL IVP PRN (22:29)
[2022-08-08] MEDS: HYDROcodone/APAP 5-325MG 1 EACH TAB PO PRN ×5 (01:45→22:22)
[2022-08-08] MEDS: HYDROmorphone 1 MG/ML 1 ML SYRINGE IVP PRN ×3 (04:03→15:39)
[2022-08-08] MEDS: SODIUM CHLORIDE 0.9% 1,000 ML IV SCH ×2 (04:05→18:59)
[2022-08-08] MEDS: SENNOSIDES-DOCUSATE SODIUM 1 EACH TAB PO SCH (07:45)
[2022-08-08] MEDS: CYCLOBENZAPRINE 10 MG TAB PO PRN ×2 (07:45→18:29)
[2022-08-08] MEDS: ONDANSETRON 4 MG/2 ML VIAL IVP PRN (07:51)
[2022-08-08] MEDS ORDERED: ACETAMINOPHEN TAB 325 MG TAB PO PRN (08:03)
[2022-08-08 09:54] LABS: Basophils # (A) 0.01 X 10*3/uL (0.00-0.10); Basophils % (A) 0.1 %; Eosinophils # (A) 0 X 10*3/uL (0.04-0.35); Eosinophils % (A) 0 %; HCT 35.8 % (37.2-46.3); HGB 11.4 g/dL (12.0-15.0); Immature Grans, Automated 1.4 %; Lymphocytes # (A) 1.75 X 10*3/uL (0.90-5.00); Lymphocytes % (A) 15.3 %; MCH 29.9 pg (27.0-32.0); MCHC 31.8 g/dL (32.0-37.0); Mean Platelet Volume 9.4 fL (9.5-12.2); Monocytes # (A) 1.21 X 10*3/uL (0.20-1.00); Monocytes % (A) 10.5 %; NRBC Per 100 WBC 0 /100 WBCS (0.0-0.0); Neutrophils # (A) 8.34 X 10*3/uL (1.80-7.70); Neutrophils % (A) 72.7 %; Platelet Count 345 X 10*3/uL (140-440); RBC 3.81 X 10*6/uL (4.10-5.20); RDW 13.6 % (11.5-14.5); WBC 11.47 X 10*3/uL (4.50-10.00)
[2022-08-08] MEDS ORDERED: MAGNESIUM SULFATE-D5W PMX 1 GM in DEXTROSE/WATER 1 100ML.BAG IVPB ONE (09:57)
--- NOTE | 2022-08-08 10:33 | P.PN ---
Progress Note - Text Progress Note Date: 08/08/22 Postoperative day #1 Patient is seen and examined today at bedside. She feels her legs are doing well. She's not having any new numbness tingling. She has soreness at her lower back for definitive motion as expected. She has been able to tolerate her diet. She still has her Ortiz intact. She had a bit of a headache but it is not positional. She says she feels better when sitting up. The patient has some pain around the surgical site as expected. Pain is being controlled with medication. Physical Exam Afebrile with stable vital signs Abdomen is soft nontender. Chest has good excursion deep and space expiration The incision site is clean dry and intact. No erythema there is no purulence. Dressing is clean and dry. There is no drainage at all. Extremities have not had neurologic change from prior to surgery. Calves and thighs were soft nontender without evidence of DVT. Assessment/Plan Postoperative day #1 status post minimally invasive decompression fusion L45 for her spondylolisthesis with stenosis and lower extremity radiculopathy Patient is progressing as expected from the surgery. She still has her Ortiz intact which will be discontinued this morning. She had a headache but this does not seem to be spinal origin. We'll try to get her to be more mobile she seems to be doing fairly well thus far We will continue to increase the patient's mobilization with therapy. We will continue pain control with oral or IV medications. We'll continue to follow patient closely.
[2022-08-08 11:26] LABS: African American GFR (CKD) 117.9 (60.0-200.0); Anion Gap 9.7 mmol/L (10.00-18.00); BUN/Creat Ratio 17.57 Ratio (12.00-20.00); Blood Urea Nitrogen 12.3 mg/dL (9.0-27.0); Calcium 8.5 mg/dL (8.7-10.3); Carbon Dioxide 23.3 mmol/L (20.0-27.5); Non-African American GFR(CKD) 101.7 (60.0-200.0); Potassium 3.8 mmol/L (3.5-5.5)
[2022-08-08] MEDS ORDERED: TOPIRAMATE 100 MG TAB PO PRN (11:56)
--- NOTE | 2022-08-08 19:43 | P.CONS ---
History of Present Illness - Reason for Consult Consult date: 08/08/22 Medical management nicotine dependence, depression Requesting physician: Conrad Murrell - Chief Complaint Status post minimally invasive decompression fusion L4-5 secondary to spond - History of Present Illness This a 51-year-old female admitted with spondylolisthesis L4, 5, spinal stenosis L4 5, degenerative disc disease L4 5, lower extremity radiculopathy, facet arthrosis, status post minimally invasive laminectomy and decompression L4 5. Tolerated procedure well. Maintained on gentle IV fluid hydration. Reports headache, positive back pain. Sitting up yesterday with PT, PTT pending this morning. Denies numbness or tingling. Denies nausea, vomiting or diarrhea. Denies abdominal pain. Denies shortness of breath. Review of Systems ROS Statement: Those systems with pertinent positive or pertinent negative responses have been documented in the HPI. ROS Other: All systems not noted in ROS Statement are negative. Past Medical History Past Medical History: Osteoarthritis (OA) Additional Past Medical History / Comment(s): Hx Ovarian Cyst, chronic back and neck pain, had one time seizure yrs ago-none since & unknown cause per pt History of Any Multi-Drug Resistant Organisms: None Reported Past Surgical History: Orthopedic Surgery, Tubal Ligation Additional Past Surgical History / Comment(s): Cyst removed from bilateral wrists, bones taken out of right wrist, tennis elbow release right elbow, posterior lumbar decompression and fusion (.11.24) Past Anesthesia/Blood Transfusion Reactions: No Reported Reaction Past Psychological History: Depression Smoking Status: Current every day smoker Past Alcohol Use History: None Reported Additional Past Alcohol Use History / Comment(s): CUT BACK TO "A COUPLE" A DAY Past Drug Use History: None Reported - Past Family History Mother Family Medical History: No Reported History Medications and Allergies Home Medications Medication Instructions Recorded Confirmed Type Hydrocodone/Acetaminophen 1 tab PO Q8H PRN 08/02/22 08/02/22 History [Hydrocodone/Acetaminophen 5-325] Ibuprofen [Motrin] 800 mg PO TID PRN 08/08/22 08/08/22 History Allergies Allergy/AdvReac Type Severity Reaction Status Date / Time No Known Allergies Allergy Verified 08/08/22 13:28 Physical Exam Vitals: Vital Signs Temp Pulse Resp BP Pulse Ox 08/08/22 07:53 99.0 F 88 16 132/78 95 08/08/22 05:24 99.2 F 89 96 08/08/22 01:32 100.7 F H 95 17 133/76 92 L 08/07/22 19:32 98.8 F 75 17 121/73 98 08/07/22 18:00 97.5 F L 75 18 144/85 99 08/07/22 17:00 78 16 124/74 96 08/07/22 16:41 76 16 128/80 100 08/07/22 16:26 78 16 123/71 100 08/07/22 16:11 97.2 F L 80 16 104/63 100 Intake and Output 08/07/22 08/08/22 08/08/22 22:59 06:59 14:59 Intake Total 200 Output Total 350 725 600 Balance -150 -725 -600 Intake: IV 200 Output: Urine 200 725 600 Uretheral (Ortiz) 725 Estimated Blood Loss 150 Other: Voiding Method Indwelling Catheter Indwelling Catheter Weight 97.3 kg PHYSICAL EXAM: VITAL SIGNS: [As above] GENERAL: Sitting up in bed, no acute distress HEENT: Conjunctivae normal. eyes normal. Oral mucosa moist NECK: Supple, No JVD. CARDIOVASCULAR: S1, S2 regular.No murmur RESPIRATION: Breath sounds diminished in the bases. No rhonchi or crackles. No bronchial breathing. ABDOMEN: Soft, nontender . No guarding. no masses palpable. No ascites, No hepatosplenomegaly.Bowel sounds heard. LEGS: No edema. no swelling. No calf tenderness. PSYCHIATRY: Alert and oriented X3, mood and affect normal. NERVOUS SYSTEM: Cranial N 2-12 grossly normal. No focal deficits. Strength and sensation grossly intact. Skin: Warm and dry, no rash. Surgical Dressing clean dry and intact Results CBC & Chem 7: 08/08/22 06:13 08/08/22 06:13 Labs: Abnormal Lab Results - Last 24 Hours (Table) 08/08/22 08/08/22 Range/Units 06:13 06:13 WBC 11.47 H (4.50-10.00) X 10*3/uL RBC 3.81 L (4.10-5.20) X 10*6/uL Hgb 11.4 L (12.0-15.0) g/dL Hct 35.8 L (37.2-46.3) % MCHC 31.8 L (32.0-37.0) g/dL MPV 9.4 L (9.5-12.2) fL Immature Gran # 0.16 H (0.00-0.04) X 10*3/uL Neutrophils # 8.34 H (1.80-7.70) X 10*3/uL Monocytes # 1.21 H (0.20-1.00) X 10*3/uL Eosinophils # 0 L (0.04-0.35) X 10*3/uL Anion Gap 9.70 L (10.00-18.00) mmol/L Glucose 114 H (70-110) mg/dL Calcium 8.5 L (8.7-10.3) mg/dL Assessment and Plan Assessment: spondylolisthesis with stenosis and lower extremity radiculopathy, status post minimally invasive decompression fusion L45 Ongoing Nicotine dependence Obesity, BMI 34.6 Depression, history of Plan: Continue on current medication regime ,monitoring and symptomatic treatment. Labs pending. Pain management. Aggressive pulmonary toileting with incentive spirometer reinforced. Magnesium 1 g IV push now for headache in addition to Tylenol. If no relief may add on either Imitrex or Topamax. Gentle IV fluid hydration. PT. Smoking sensation reinforced, nicotine patch ordered. Thank you for the consult. Follow-up with PCP in one week after discharge. The impression and plan of care has been dictated as directed. : I performed a history and examination of this patient, discussed the same with the dictator. I agree with the dictator's note ,documented as a scribe. Any additional findings or plans will be noted.
[2022-08-08] MEDS ORDERED: NICOTINE 14MG/24HR PATCH TRANSDERM SCH (19:45)
[2022-08-09] MEDS: HYDROcodone/APAP 5-325MG 1 EACH TAB PO PRN ×2 (02:21→08:11)
[2022-08-09 08:01] VITALS: BP 114/69; PULSE 95; RESP 18; TEMP 98.3
[2022-08-09] MEDS: SENNOSIDES-DOCUSATE SODIUM 1 EACH TAB PO SCH (08:11)
--- NOTE | 2022-08-09 08:46 | P.DS ---
Providers Date of admission: 08/08/22 08:31 Expected date of discharge: 08/09/22 Attending physician: Conrad Murrell Consults: 08/07/22 16:09 Consult Physician Routine Consulting Provider: Suleiman Campbell Consult Reason/Comments: Medical management Do you want consulting provider notified?: Yes Primary care physician: Terese Escoto - Discharge Diagnosis(es) (1) Spondylolisthesis at L4-L5 level Current Visit: Yes Status: Acute (2) Lumbar spinal stenosis Current Visit: Yes Status: Acute (3) Lumbar facet arthropathy Current Visit: Yes Status: Acute (4) Lumbar degenerative disc disease Current Visit: Yes Status: Acute (5) Radiculopathy with lower extremity symptoms Current Visit: Yes Status: Acute (6) Low back pain Current Visit: Yes Status: Acute (7) Status post lumbar spinal arthrodesis Current Visit: Yes Status: Acute Hospital Course: This is a pleasant 51-year-old female who presented with L4-5 spondylolisthesis, spinal stenosis, and degenerative disc disease, lumbar facet arthrosis, and lower extremity radiculopathy who failed outpatient conservative therapy. She was admitted for an L4-5 minimally invasive posterior lateral decompression and fusion with transforaminal lumbar interbody fusion. The patient tolerated the procedure well and has been improving postoperatively. She does have some pain at the surgical sites but feels her pain is adequately controlled with oral medications and would like to be discharged home today. She has been able to transfer to the restroom. Her Ortiz catheter has been discontinued. She is eating and voiding without difficulty. She is not currently complaining of any significant lower extremity radiculopathy. She does have a walker which she may utilize to aid in ambulation as needed. Condition on day of discharge stable. Patient will be discharged home. Patient was cleared preoperatively for surgery by Dr. Terese Escoto. Patient currently denies any nausea, vomiting, fever, or chills. Patient does have some abdominal discomfort but does not have any distention and is passing gas. Patient may shower Optifoam dressing intact. Patient may remove Optifoam dressing in 3 days and shower without a dressing at that time. Patient should refrain from driving until at least after their first follow-up appointment in the office. Patient should avoid excessive bending, lifting, and twisting; no lifting greater than 10 pounds. MAPS has been reviewed today, 08/09/2022, with an Overall Overdose Risk Score of 280. An "Opiod Start Talking" Form has been signed and placed in the patient's chart. A prescription has been written for hydrocodone 5 mg/325 mg, take 1 tab every 4 hours as needed for acute pain, dispense #42. Patient is also given prescription for cyclobenzaprine 10 mg 1 tab 3 times a day, as needed for muscle spasm, dispensed #60. Patient is given a prescription for Senokot-S, take 1 tab twice a day as needed for constipation, dispensed #60. Medications are sent to the [facility] pharmacy located within [facility] per the request of the patient. Patient should avoid anti-inflammatory medications over the next 6 weeks postoperatively. Physical Exam on day of discharge: Patient is awake, alert, and oriented 3 Vital signs stable Good chest excursion with deep inspiration and expiration Abdomen soft nontender; no abdominal distention No signs or symptoms of DVT; no calf pain Extensor hallucis longus, plantarflexion, and dorsiflexion positive sustained bilateral lower extremities Incision is clean, dry, and intact; no erythema, purulence, or signs of infection Optifoam dressing intact Procedures: L4-5 minimally invasive posterior lateral decompression and fusion with transforaminal lumbar interbody fusion Patient Condition at Discharge: Stable Plan - Discharge Summary Discharge Rx Participant: No New Discharge Prescriptions: New Cyclobenzaprine [Flexeril] 10 mg PO TID PRN #60 tab PRN Reason: Muscle Spasm HYDROcodone/APAP 5-325MG [Bradshaw 5] 1 each PO Q4HR PRN #42 tab PRN Reason: Pain Sennosides-Docusate Sodium [Senokot-S] 1 tab PO BID PRN #60 tablet PRN Reason: Constipation No Action Ibuprofen [Motrin] 800 mg PO TID PRN PRN Reason: Pain Or Fever > 100.5 Hydrocodone/Acetaminophen [Hydrocodone/Acetaminophen 5-325] 1 tab PO Q8H PRN PRN Reason: Pain Discharge Medication List Hydrocodone/Acetaminophen [Hydrocodone/Acetaminophen 5-325] 1 tab PO Q8H PRN 08/02/22 [History] Ibuprofen [Motrin] 800 mg PO TID PRN 08/08/22 [History] Cyclobenzaprine [Flexeril] 10 mg PO TID PRN #60 tab 08/09/22 [Rx] HYDROcodone/APAP 5-325MG [Bradshaw 5] 1 each PO Q4HR PRN #42 tab 08/09/22 [Rx] Sennosides-Docusate Sodium [Senokot-S] 1 tab PO BID PRN #60 tablet 08/09/22 [Rx] Follow up Appointment(s)/Referral(s): [facility] [NON-STAFF] - As Needed (Walker) Girma Chandra PAC [PHYSICIAN EXTRUSION DIE TEMPLATE MAKER] - 2 Weeks (Patient may follow-up with Girma Chandra PA-C or Dr. Charanjit Murrell at [facility] in 2-3 weeks following discharge. ) Activity/Diet/Wound Care/Special Instructions: 1. Patient may shower with Optifoam dressing intact. 2. Patient may remove Optifoam dressing in 3 days and shower without a dressing at that time. 3. Patient should refrain from driving until at least after their first follow- up appointment in the office. 4. Patient should avoid excessive bending, twisting, lifting; avoid overhead lifting; no lifting greater than 10 pounds 5. Take medications as prescribed 6. Patient should avoid anti-inflammatory medications over the next 6 weeks postoperatively 7. Patient may utilize walker to aid in ambulation as needed 8. Do not soak in tub Discharge Disposition: HOME SELF-CARE
[2022-08-09 09:16] LABS: HCT 37.6 % (37.2-46.3); HGB 11.9 g/dL (12.0-15.0); MCH 30.4 pg (27.0-32.0); MCHC 31.6 g/dL (32.0-37.0); MCV 95.9 fL (80.0-97.0); Mean Platelet Volume 9.9 fL (9.5-12.2); NRBC Per 100 WBC 0 /100 WBCS (0.0-0.0); Platelet Count 301 X 10*3/uL (140-440); RBC 3.92 X 10*6/uL (4.10-5.20); RDW 13.5 % (11.5-14.5); WBC 14.53 X 10*3/uL (4.50-10.00)
[2022-08-09 10:33] LABS: Basophils # (A) 0.02 X 10*3/uL (0.00-0.10); Basophils % (A) 0.1 %; Eosinophils # (A) 0 X 10*3/uL (0.04-0.35); Eosinophils % (A) 0 %; Immature Grans, Automated 0.3 %; Lymphocytes # (A) 3.49 X 10*3/uL (0.90-5.00); Monocytes # (A) 1.64 X 10*3/uL (0.20-1.00); Monocytes % (A) 11.3 %; Neutrophils # (A) 9.33 X 10*3/uL (1.80-7.70); Neutrophils % (A) 64.3 %; RBC Morphology NORMAL
--- NOTE | 2022-08-09 10:34 | P.PN ---
Subjective Progress Note Date: 08/09/22 - Chief Complaint Status post minimally invasive decompression fusion L4-5 secondary to spond - History of Present Illness This a 51-year-old female admitted with spondylolisthesis L4, 5, spinal stenosis L4 5, degenerative disc disease L4 5, lower extremity radiculopathy, facet arthrosis, status post minimally invasive laminectomy and decompression L4 5. Tolerated procedure well. Maintained on gentle IV fluid hydration. Reports headache, positive back pain. Sitting up yesterday with PT, PTT pending this morning. Denies numbness or tingling. Denies nausea, vomiting or diarrhea. Denies abdominal pain. Denies shortness of breath. 08/09/2022 Reports she has been able to ambulate yesterday , tolerated exertion well,headache resolved. Denies lightheadedness, dizziness or focal deficits. Back pain controlled on current medical regimen. Denies any weakness numbness or tingling. Positive diet intake, denies nausea vomiting or diarrhea. Denies chest pain, palpitations or shortness of breath. Maintaining O2 sats of 97% on room air. Afebrile, labs pending. Objective - Vital Signs Vital signs: Vital Signs Temp 98.3 F 08/09/22 07:05 Pulse 95 08/09/22 08:00 Resp 18 08/09/22 08:00 BP 114/69 08/09/22 07:05 Pulse Ox 97 08/09/22 07:05 FiO2 Intake & Output 08/08/22 08/09/22 08/09/22 18:59 06:59 18:59 Output Total 3100 0 Balance -3100 0 Output: Urine 3100 0 Other: Voiding Method Indwelling Catheter Indwelling Catheter Toilet # Voids 1 1 - Exam PHYSICAL EXAM: VITAL SIGNS: [As above] GENERAL: Alert and oriented 3, Sitting up in bed, no acute distress HEENT: Conjunctivae normal. eyes normal. Oral mucosa moist CARDIOVASCULAR: S1, S2 regular.No murmur RESPIRATION: Breath sounds diminished in the bases. ABDOMEN: Soft, nontender . No guarding. LEGS: No edema. no swelling. No calf tenderness. NERVOUS SYSTEM: Cranial N 2-12 grossly normal. No focal deficits. Strength and sensation grossly intact. Skin: Warm and dry, no rash. - Labs CBC & Chem 7: 08/09/22 05:34 08/08/22 06:13 Labs: Abnormal Lab Results - Last 24 Hours (Table) 08/08/22 08/09/22 Range/Units 06:13 05:34 WBC 14.53 H (4.50-10.00) X 10*3/uL RBC 3.92 L (4.10-5.20) X 10*6/uL Hgb 11.9 L (12.0-15.0) g/dL MCHC 31.6 L (32.0-37.0) g/dL Anion Gap 9.70 L (10.00-18.00) mmol/L Glucose 114 H (70-110) mg/dL Calcium 8.5 L (8.7-10.3) mg/dL Assessment and Plan Assessment: spondylolisthesis with stenosis and lower extremity radiculopathy, status post minimally invasive decompression fusion L45 Atelectasis, postop, expected outcome Ongoing Nicotine dependence Obesity, BMI 34.6 Depression, history of Plan: Continue on current medication regime ,monitoring and symptomatic treatment. Labs pending. Pain management. Discharge planning in progress as per primary. At [place] , maintain aggressive pulmonary toileting with incentive spirometer as previously advised. PT. Smoking sensation reinforced, nicotine patch ordered. Follow-up with PCP in one week after discharge. The impression and plan of care has been dictated as directed. : I performed a history and examination of this patient, discussed the same with the dictator. I agree with the dictator's note ,documented as a scribe. Any additional findings or plans will be noted.
== END 2022-08-09 11:59 | disposition home or self-care (01) ==
LOC: OR 10:14 → 4SSUR 16:01 → OR 08-08 08:31
PROVIDERS: ADMIT Orthopaedic Surgery Orthopaedic Surgery of the Spine; ATTEND Orthopaedic Surgery Orthopaedic Surgery of the Spine
DX: M43.16 Spondylolisthesis, lumbar region (principal); M51.16 Intervertebral disc disorders with radiculopathy, lumbar region; M47.20 Other spondylosis with radiculopathy, site unspecified; F32.A Depression, unspecified; R51.9 Headache, unspecified; Z79.891 Long term (current) use of opiate analgesic; Z79.1 Long term (current) use of non-steroidal anti-inflammatories (NSAID); Z97.3 Presence of spectacles and contact lenses; Z98.51 Tubal ligation status; Z98.890 Other specified postprocedural states; F17.200 Nicotine dependence, unspecified, uncomplicated
CPT/HCPCS: 22633; 20936; 97116; 97161; 81025; 86900; 86901; 80048; 85025 ×3; 86850; 72100; G0378 ×2; C1713 ×2; C1762; J2250; J0330; J2710; J0690 ×3; J2405 ×2; J3010; J1170 ×3; J3475; J2370; J2704

== ENCOUNTER → 2022-12-11 | Outpatient (CLI) | payer OTHER ==
--- NOTE | 2022-12-11 07:32 | MR ---
EXAMINATION TYPE: MR thoracic spine wo con DATE OF EXAM: 12/11/2022 COMPARISON: NONE HISTORY: Mid back pain x 5 years TECHNIQUE: Multiplanar, multisequence imaging of thoracic spine is performed without contrast FINDINGS: Coronal images show slight levoconvex scoliosis centered in the upper to mid thoracic spine . Spinal cord shows normal caliber and signal as it courses the thoracic spine. Vertebral body heig hts and alignment are satisfactory on sagittal images. There is some overall heterogeneity of bone m arrow signal intensity greatest in the mid thoracic spine. There is heterogeneous oriented type I end plate changes anteriorly at T11-T12 level noted. There are posterior disc herniations effacing anteri or thecal sac at T5-T6 through T11-T12 level on sagittal images with largest disc herniations noted a t T6-T7 through the T10-T11 level on sagittal image 8. Mild to moderate multilevel anterior spurring is seen. Review of the axial images shows no additional significant disc herniation. The visualized thorax and upper abdomen are grossly unremarkable. IMPRESSION: Scoliotic curvature with multilevel degenerative changes in the mid to lower thoracic spi ne as detailed above.
== END | disposition home or self-care (01) ==
LOC: RADMRIMAIN 06:43
PROVIDERS: ATTEND Orthopaedic Surgery Orthopaedic Surgery of the Spine
DX: M51.34 Other intervertebral disc degeneration, thoracic region (principal); M47.814 Spondylosis without myelopathy or radiculopathy, thoracic region
CPT/HCPCS: 72146

== ENCOUNTER 2022-12-29 22:15 | Emergency (ER) | payer OTHER ==
--- NOTE | 2022-12-29 23:10 | ED ---
Wound/Laceration HPI - General Chief Complaint: Wound/Laceration Stated Complaint: Finger Lac Time Seen by Provider: 12/29/22 23:10 Source: patient, RN notes reviewed (Was pt. sent in by a medical professional or institution ([facility]ae, [employer], urgent care, hospital, or intermediate...) When possible be specific) Mode of arrival: ambulatory Limitations: no limitations - History of Present Illness Initial Comments: Patient is a 52-year-old female presents emergency room with complaints of laceration to the distal portion of her right middle finger she obtained accidentally on the blade of a tool or die drawing checker. She denies any injury to any other location. She is unsure of her vaccination status. She denies any range of motion impairment numbness or tingling. She denies any other complaints or concerns at this time. She has a past medical history significant for osteoarthritis and seizures. - Related Data Home Medications Medication Instructions Recorded Confirmed Hydrocodone/Acetaminophen 1 tab PO Q8H PRN 08/02/22 08/02/22 [Hydrocodone/Acetaminophen 5-325] Ibuprofen [Motrin] 800 mg PO TID PRN 08/08/22 08/08/22 Previous Rx's Medication Instructions Recorded Cyclobenzaprine [Flexeril] 10 mg PO TID PRN #60 tab 08/09/22 HYDROcodone/APAP 5-325MG [[place] 5] 1 each PO Q4HR PRN #42 tab 08/09/22 Sennosides-Docusate Sodium 1 tab PO BID PRN #60 tablet 08/09/22 [Senokot-S] Allergies Allergy/AdvReac Type Severity Reaction Status Date / Time No Known Allergies Allergy Verified 12/29/22 22:24 Review of Systems ROS Statement: Those systems with pertinent positive or pertinent negative responses have been documented in the HPI. ROS Other: All systems not noted in ROS Statement are negative. Past Medical History Past Medical History: Osteoarthritis (OA), Seizure Disorder Additional Past Medical History / Comment(s): Hx Ovarian Cyst, chronic back and neck pain, had one time seizure about 5 yrs ago-none since & unknown cause per pt., History of Any Multi-Drug Resistant Organisms: None Reported Past Surgical History: Back Surgery, Orthopedic Surgery, Tubal Ligation Additional Past Surgical History / Comment(s): Cyst removed from bilateral wrists, bones taken out of right wrist, tennis elbow release right elbow, poste rior lumbar decompression and fusion (1.4.23) Past Anesthesia/Blood Transfusion Reactions: No Reported Reaction Past Psychological History: Depression Smoking Status: Current every day smoker Past Alcohol Use History: None Reported Past Drug Use History: None Reported - Past Family History Mother Family Medical History: No Reported History General Exam Limitations: no limitations General appearance: alert, in no apparent distress Head exam: Present: atraumatic, normocephalic, normal inspection Eye exam: Present: normal appearance, PERRL, EOMI. Absent: scleral icterus, conjunctival injection, periorbital swelling ENT exam: Present: normal exam, mucous membranes moist Neck exam: Present: normal inspection, full ROM Respiratory exam: Absent: respiratory distress, accessory muscle use Cardiovascular Exam: Present: regular rate GI/Abdominal exam: Absent: distended Right Hand Wrist exam: Present: full ROM, tenderness (at site of laceration), laceration (Minimal depth flap-like well approximated proximal 1 cm in length.). Absent: swelling, ecchymosis, deformity, crepitus, dislocation, nail avulsion Vascular: Absent: vascular compromise Back exam: Present: normal inspection Neurological exam: Present: alert, oriented X3, CN II-XII intact Psychiatric exam: Present: normal affect, normal mood Skin exam: Present: other (Laceration as above.) Course Vital Signs 12/29/22 12/30/22 22:21 00:19 Temperature 97.9 F 97.7 F Pulse Rate 101 H 89 Respiratory 20 18 Rate Blood Pressure 143/97 150/81 O2 Sat by Pulse 96 97 Oximetry Procedures - Laceration Laceration #1 Indication: laceration Site: hand (Right ring finger distal) Size (cm): 1 Description: linear, flap Size of Sutures: other (Skin adhesive) Patient Tolerated Procedure: well, no complications Medical Decision Making - Medical Decision Making Was pt. sent in by a medical professional or institution (, PA, [employer], urgent care, hospital, or intermediate...) When possible be specific @ -No Did you speak to anyone other than the patient for history (EMS, parent, family, police, friend...)? What history was obtained from this source @ -No Did you review nursing and triage notes (agree or disagree)? Why? @ -I reviewed and agree with nursing and triage notes Were old charts reviewed (outside hosp., previous admission, EMS record, old EKG, old radiological studies, urgent care reports/EKG's, intermediate records)? Report findings @ -No old charts were reviewed Differential Diagnosis (chest pain, altered mental status, abdominal pain women, abdominal pain men, vaginal bleeding, weakness, fever, dyspnea, syncope, headache, dizziness, GI bleed, back pain, seizure, CVA, palpatations, mental health, musculoskeletal)? @ -not applicable EKG interpreted by me (3pts min.). @ -None done X-rays interpreted by me (1pt min.). @ -None done CT interpreted by me (1pt min.). @ -None done U/S interpreted by me (1pt. min.). @ -None done What testing was considered but not performed or refused? (CT, X-rays, U/S, labs)? Why? @ -None What meds were considered but not given or refused? Why? @ -None Did you discuss the management of the patient with other professionals (professionals i.e. , PA, [employer], lab, RT, psych nurse, medical social consultant, film technician, teacher, radio officer, nurse outreach case manager)? Give summary @ -No Was smoking cessation discussed for >3mins.? @ -No Was critical care preformed (if so, how long)? @ -No Were there social determinants of health that impacted care today? How? (Homelessness, low income, unemployed, alcoholism, drug addiction, transportation, low edu. Level, literacy, decrease access to med. care, halfway, rehab)? @ -No Was there de-escalation of care discussed even if they declined (Discuss DNR or withdrawal of care, Hospice)? DNR status @ -No What co-morbidities impacted this encounter? (DM, HTN, Smoking, COPD, CAD, Cancer, CVA, ARF, Chemo, Hep., AIDS, mental health diagnosis, sleep apnea, morbid obesity)? @ -None Was patient admitted / discharged? Hospital course, mention meds given and route, prescriptions, significant lab abnormalities, going to OR and other pertinent info. @ -52-year-old female presenting the emergency room with a superficial flap-like laceration to her right ring finger which she obtain off of the blade of a tool or die drawing checker prior to arrival. She is unsure regarding her tetanus status. Full range of motion and neurovascularly intact no indication for diagnostic imaging or laboratory studies. Will update tetanus and close wound with skin adhesive. Tetanus update tolerated well. Closure of laceration with skin adhesive tolerated well. Wound care discussed with patient. Questions and concerns answered. Return parameters to the emergency room discussed. Advised to follow- up with primary care provider as needed. Advised use of [id number] Tylenol or Motrin as needed for pain Will discharge home in stable condition with dressing intact over laceration to right ring finger status post skin adhesive closure advising follow-up with primary care provider as needed. Undiagnosed new problem with uncertain prognosis? @ -No Drug Therapy requiring intensive monitoring for toxicity (Heparin, Nitro, Insulin, Cardizem)? @ -No Were any procedures done? @ -Yes, laceration closure with skin adhesive see procedure for details Diagnosis/symptom? @ -Laceration Acute, or Chronic, or Acute on Chronic? @ -Acute Uncomplicated (without systemic symptoms) or Complicated (systemic symptoms)? @ -Uncomplicated Side effects of treatment? @ -No Exacerbation, Progression, or Severe Exacerbation? @ -No Poses a threat to life or bodily function? How? (Chest pain, [place], [place], pneumonia, PE, COPD, DKA, ARF, appy, cholecystitis, CVA, Diverticulitis, Homicidal, Suicidal, threat to staff... and all critical care pts) @ -No Case discussed with Dr. Escoto. Disposition Clinical Impression: Laceration Disposition: HOME SELF-CARE Condition: Stable Instructions (If sedation given, give patient instructions): Laceration (ED), Skin Adhesive Care (ED) Additional Instructions: Keep current dressing on your laceration for the next 24 hours. Keep laceration clean and dry. Avoid pulling on skin adhesive glue. Utilize Tylenol or Motrin [id number] for pain as needed. Please follow-up with your primary care provider. Please return to the Emergency Department if symptoms worsen or any other concerns. Is patient prescribed a controlled substance at d/c from ED?: No Referrals: Terese Escoto DO [Primary Care Provider] - 1-2 days Time of Disposition: 23:32
[2022-12-29] MEDS ORDERED: DIPH,PERTUS(ACELL)TETVAC-LF 0.5 ML VIAL IM ONE (23:14)
[2022-12-29] MEDS ORDERED: TOPICAL SKIN ADHESIVE 1 EACH AMP TOPICAL ONE (23:14)
[2022-12-30 00:21] VITALS: BP 150/81; PULSE 89; RESP 18; TEMP 97.7
== END 2022-12-30 00:21 | disposition home or self-care (01) ==
LOC: EC 22:15
DX: S61.212A Laceration without foreign body of right middle finger without damage to nail, initial encounter (principal); M19.90 Unspecified osteoarthritis, unspecified site; F32.A Depression, unspecified; F17.200 Nicotine dependence, unspecified, uncomplicated; Z79.899 Other long term (current) drug therapy; Z79.1 Long term (current) use of non-steroidal anti-inflammatories (NSAID); W26.8XXA Contact with other sharp object(s), not elsewhere classified, initial encounter
CPT/HCPCS: 12001; 90471; 90715; 99282